=== PATIENT | male | born 1980 | race Caucasian/White ===

== ENCOUNTER 2018-07-10 06:24 | Inpatient (IN) | payer MEDICARE, MEDICAID ==
[2018-07-10] MEDS: LR 1,000 ML IV ×2 (06:45→11:15)
[2018-07-10] MEDS ORDERED: ERTAPENEM 1 GM INJ (INVanz) (J1335) As Ordered (07:17)
[2018-07-10] MEDS: ERTAPENEM SODIUM 1 GM in NS 50 ML IV (08:00)
[2018-07-10] MEDS ORDERED: BISACODYL 5 MG TAB PO (08:00)
[2018-07-10] MEDS ORDERED: NS 1,000 ML IV (08:15)
[2018-07-10] MEDS ORDERED: PROPOFOL 200 MG/20 ML VIAL As Ordered (08:20)
[2018-07-10] MEDS ORDERED: fentaNYL 100 MCG/2 ML INJECTION (J3010) As Ordered ×3 (08:20→10:58)
[2018-07-10] MEDS ORDERED: dexameTHASONE 4 MG/ML 1ML VIAL (J1100) As Ordered (08:20)
[2018-07-10] MEDS ORDERED: LIDOCAINE 2% INJ 100 MG/5 ML SDV (FOR ANES.) As Ordered (08:20)
[2018-07-10] MEDS ORDERED: MIDAZOLAM INJ 2 MG/2 ML VIAL (J2250) As Ordered (08:20)
[2018-07-10] MEDS ORDERED: ROCURONIUM BROMIDE 50 MG/5 ML VIAL As Ordered (08:20)
[2018-07-10] MEDS ORDERED: ONDANSETRON 4MG/2ML VIAL (J2405) As Ordered (08:49)
[2018-07-10] MEDS ORDERED: GLYCOPYRROLATE INJ 0.2 MG/ML 2 ML VIAL As Ordered ×2 (08:50)
[2018-07-10] MEDS ORDERED: NEOSTIGMINE 10 MG/10 ML VIAL (J2710) As Ordered (08:50)
[2018-07-10] MEDS: BACITRACIN PWD 50,000 UNITS VIAL As Ordered (08:59)
[2018-07-10] MEDS: BUPIVACAINE/EPIN 0.25% 30 ML VIAL As Ordered (09:35)
[2018-07-10] MEDS ORDERED: SUGAMMADEX SODIUM 500 MG/5 ML VIAL (BRIDION) As Ordered (10:20)
[2018-07-10] MEDS ORDERED: ONDANSETRON 4MG/2ML VIAL (J2405) IV (10:45)
[2018-07-10] MEDS ORDERED: PROMETHAZINE INJ 25 MG/ML VIAL (J2550) IV (10:45)
[2018-07-10] MEDS ORDERED: NORCO, ANEXSIA 5/325MG TABLET (HYDROcodone/ACETAMINOPHEN) PO (10:45)
[2018-07-10] MEDS ORDERED: METOCLOPRAMIDE INJ 10MG/2ML VIAL (J2765) IV (10:45)
[2018-07-10] MEDS ORDERED: PERCOCET 5MG/325MG TAB As Ordered (10:58)
[2018-07-10] MEDS: PERCOCET 5MG/325MG TAB PO ×2 (11:05→11:50)
[2018-07-10] MEDS: fentaNYL 100 MCG/2 ML INJECTION (J3010) IV ×8 (11:05→12:19)
[2018-07-10] MEDS ORDERED: MEPERIDINE INJ 25 MG/ML VIAL (J2175) IV (11:15)
[2018-07-10] MEDS: METOCLOPRAMIDE INJ 10MG/2ML VIAL (J2765) IV (11:29)
[2018-07-10] MEDS ORDERED: MULTIVITAMINS/MINERALS THERAP 1 TAB PO (11:30)
[2018-07-10] MEDS ORDERED: CALCIUM CARBONATE 500 MG CHEW U/D PO (11:30)
[2018-07-10] MEDS ORDERED: ENOXAPARIN 40 MG/0.4 ML SYRINGE (J1650) SC (11:30)
[2018-07-10] MEDS: KETOROLAC 30 MG/ML VIAL (J1885) IV ×2 (11:32→21:19)
[2018-07-10] MEDS: ONDANSETRON 4MG/2ML VIAL (J2405) IV (11:33)
[2018-07-10] MEDS: DOCUSATE SODIUM 100 MG CAP PO ×2 (15:42→20:57)
[2018-07-10] MEDS: TOLTERODINE TARTRATE 2 MG LA CAP (DETROL LA) PO (15:43)
[2018-07-10] MEDS: PANTOPRAZOLE 40MG TAB (PROTONIX) PO (15:43)
[2018-07-10] MEDS: NORCO, ANEXSIA 5/325MG TABLET (HYDROcodone/ACETAMINOPHEN) PO (15:45)
[2018-07-10] MEDS: D5W/LR 1,000 ML IV ×2 (16:22→22:25)
[2018-07-10] MEDS: DANTROLENE 25 MG CAP PO (20:57)
[2018-07-10] MEDS: buPROPion **SR TABLET** (ZYBAN) 150MG PO (20:58)
[2018-07-11] MEDS: NORCO, ANEXSIA 5/325MG TABLET (HYDROcodone/ACETAMINOPHEN) PO ×3 (01:54→18:28)
[2018-07-11] MEDS: D5W/LR 1,000 ML IV (05:44)
[2018-07-11 06:33] LABS: HEMATOCRIT 30.9 % (42.0-52.0); HEMOGLOBIN 10.5 g/dl (13.5-17.5); MEAN CORPUSCULAR HEMOGLOBIN 33.3 pg (27.0-33.0); MEAN CORPUSCULAR VOLUME 98.1 fl (80.0-96.0); PLATELET COUNT, AUTOMATED 225 10^3/uL (150-450); RED BLOOD COUNT 3.15 10^6/uL (4.30-6.10); RED CELL DISTRIBUTION WIDTH 12.6 % (11.5-14.5)
[2018-07-11 07:00] LABS: ANION GAP 6 MEQ/L (8-16); BLOOD UREA NITROGEN 3 MG/DL (7-18); CALCIUM LEVEL 7.9 MG/DL (8.5-10.1); CARBON DIOXIDE LEVEL 27 MEQ/L (21-32); CHLORIDE LEVEL 106 MEQ/L (98-107); CREATININE FOR GFR 0.28 MG/DL (0.70-1.30); GLOMERULAR FILTRATION RATE > 60.0 (>60); GLUCOSE, FASTING 135 MG/DL (70-100); SODIUM LEVEL 139 MEQ/L (136-145)
[2018-07-11] MEDS: PANTOPRAZOLE 40MG TAB (PROTONIX) PO (09:29)
[2018-07-11] MEDS: ERTAPENEM SODIUM 1 GM in NS MINI-BAG PLUS 50 ML IV (09:29)
[2018-07-11] MEDS: DOCUSATE SODIUM 100 MG CAP PO ×2 (09:29→20:47)
[2018-07-11] MEDS: POTASSIUM CHLORIDE 10 MEQ SR TABLET PO ×2 (09:30→20:47)
[2018-07-11] MEDS: buPROPion **SR TABLET** (ZYBAN) 150MG PO ×2 (09:30→20:47)
[2018-07-11] MEDS: DANTROLENE 25 MG CAP PO ×2 (09:31→20:46)
[2018-07-11] MEDS: TOLTERODINE TARTRATE 2 MG LA CAP (DETROL LA) PO (09:31)
[2018-07-11] MEDS: KETOROLAC 30 MG/ML VIAL (J1885) IV ×3 (09:46→23:38)
[2018-07-11] MEDS: BACLOFEN 10 MG TAB PO ×2 (10:57→20:46)
[2018-07-11] MEDS: AMPICILLIN SOD/SULBACTAM SOD 3 GM in D5W MINI-BAG PLUS 100 ML IV ×2 (15:09→20:47)
[2018-07-11] MEDS: ASCORBIC ACID 500 MG TAB PO (15:10)
[2018-07-11] MEDS: MULTIVITAMINS/MINERALS THERAP 1 TAB PO (15:10)
[2018-07-11] MEDS: ZINC SULFATE 220 MG CAP PO (15:10)
[2018-07-12] MEDS: NORCO, ANEXSIA 5/325MG TABLET (HYDROcodone/ACETAMINOPHEN) PO ×4 (01:46→23:22)
[2018-07-12] MEDS: AMPICILLIN SOD/SULBACTAM SOD 3 GM in D5W MINI-BAG PLUS 100 ML IV ×2 (03:55→09:51)
[2018-07-12] MEDS: KETOROLAC 30 MG/ML VIAL (J1885) IV ×3 (06:57→21:26)
[2018-07-12 07:27] LABS: HEMATOCRIT 34.2 % (42.0-52.0); HEMOGLOBIN 11.2 g/dl (13.5-17.5); MEAN CORPUSCULAR HGB CONC 32.7 g/dl (32.0-36.5); MEAN CORPUSCULAR VOLUME 100.9 fl (80.0-96.0); PLATELET COUNT, AUTOMATED 237 10^3/uL (150-450); RED BLOOD COUNT 3.39 10^6/uL (4.30-6.10); RED CELL DISTRIBUTION WIDTH 12.7 % (11.5-14.5); WHITE BLOOD COUNT 7.1 10^3/uL (4.0-10.0)
[2018-07-12 07:51] LABS: ANION GAP 5 MEQ/L (8-16); BLOOD UREA NITROGEN 5 MG/DL (7-18); CARBON DIOXIDE LEVEL 27 MEQ/L (21-32); CHLORIDE LEVEL 111 MEQ/L (98-107); CREATININE FOR GFR 0.18 MG/DL (0.70-1.30); GLOMERULAR FILTRATION RATE > 60.0 (>60); GLUCOSE, FASTING 84 MG/DL (70-100); POTASSIUM SERUM 3.6 MEQ/L (3.5-5.1); SODIUM LEVEL 143 MEQ/L (136-145)
[2018-07-12] MEDS: ASCORBIC ACID 500 MG TAB PO (09:52)
[2018-07-12] MEDS: DOCUSATE SODIUM 100 MG CAP PO ×2 (09:52→21:25)
[2018-07-12] MEDS: PANTOPRAZOLE 40MG TAB (PROTONIX) PO (09:52)
[2018-07-12] MEDS: ZINC SULFATE 220 MG CAP PO (09:52)
[2018-07-12] MEDS: DANTROLENE 25 MG CAP PO ×2 (09:52→21:25)
[2018-07-12] MEDS: BACLOFEN 10 MG TAB PO ×2 (09:52→21:24)
[2018-07-12] MEDS: TOLTERODINE TARTRATE 2 MG LA CAP (DETROL LA) PO (09:53)
[2018-07-12] MEDS: MULTIVITAMINS/MINERALS THERAP 1 TAB PO (09:53)
[2018-07-12] MEDS: buPROPion **SR TABLET** (ZYBAN) 150MG PO ×2 (09:53→21:25)
[2018-07-12] MEDS: INFLUENZA QUADRIVALENT PF VACCINE 0.5ML SYRINGE (90686) IM (09:55)
[2018-07-12] MEDS: ENOXAPARIN 40 MG/0.4 ML SYRINGE (J1650) SC (09:55)
[2018-07-12] MEDS ORDERED: VANCOMYCIN HCL 1,000 MG, VIAL MATE ADAPTER 1 EACH in D5W 250 ML IV (10:45)
[2018-07-12] MEDS: VANCOMYCIN HCL 1,000 MG, VIAL MATE ADAPTER 1 EACH in D5W 250 ML IV (12:00)
[2018-07-12] MEDS ORDERED: MEROPENEM INJ 500 MG in APPROPRIATE DILUENT 1 EA IV (12:00)
[2018-07-12] MEDS: MEROPENEM INJ 500 MG in APPROPRIATE DILUENT 1 EA IV ×2 (12:40→21:26)
[2018-07-12] MEDS: hydrOXYzine 50 MG TAB PO ×2 (17:47→23:21)
[2018-07-13] MEDS: VANCOMYCIN HCL 750 MG, VIAL MATE ADAPTER 1 EACH in D5W 250 ML IV (00:43)
[2018-07-13] MEDS: hydrOXYzine 50 MG TAB PO ×3 (05:35→17:48)
[2018-07-13] MEDS: KETOROLAC 30 MG/ML VIAL (J1885) IV (05:35)
[2018-07-13] MEDS: MEROPENEM INJ 500 MG in APPROPRIATE DILUENT 1 EA IV ×3 (05:36→20:58)
[2018-07-13 06:06] LABS: BASO % 0.4 % (0.0-1.0); EOS # 0.3 10^3/uL (0.0-0.50); EOS % 4.2 % (0.0-3.0); HEMATOCRIT 35.9 % (42.0-52.0); HEMOGLOBIN 11.7 g/dl (13.5-17.5); IMMATURE GRANULOCYTE % 0.1 % (0-3.0); LYMPH # 1.6 10^3/uL (1.5-4.5); LYMPH % 22.8 % (24.0-44.0); MEAN CORPUSCULAR HEMOGLOBIN 32.2 pg (27.0-33.0); MEAN CORPUSCULAR HGB CONC 32.6 g/dl (32.0-36.5); MEAN CORPUSCULAR VOLUME 98.9 fl (80.0-96.0); MONO # 0.6 10^3/uL (0.0-0.8); MONO % 8.2 % (0.0-5.0); NEUTROPHILS # 4.5 10^3/uL (1.8-7.7); NEUTROPHILS % 64.3 % (36.0-66.0); PLATELET COUNT, AUTOMATED 276 10^3/uL (150-450); RED BLOOD COUNT 3.63 10^6/uL (4.30-6.10); RED CELL DISTRIBUTION WIDTH 12.3 % (11.5-14.5); WHITE BLOOD COUNT 6.9 10^3/uL (4.0-10.0)
[2018-07-13 06:31] LABS: ANION GAP 7 MEQ/L (8-16); BLOOD UREA NITROGEN 11 MG/DL (7-18); CALCIUM LEVEL 8.7 MG/DL (8.5-10.1); CARBON DIOXIDE LEVEL 27 MEQ/L (21-32); CHLORIDE LEVEL 107 MEQ/L (98-107); CREATININE FOR GFR 0.29 MG/DL (0.70-1.30); GLOMERULAR FILTRATION RATE > 60.0 (>60); GLUCOSE, FASTING 99 MG/DL (70-100); POTASSIUM SERUM 3.6 MEQ/L (3.5-5.1); SODIUM LEVEL 141 MEQ/L (136-145)
[2018-07-13] MEDS: DANTROLENE 25 MG CAP PO ×2 (08:39→20:58)
[2018-07-13] MEDS: ENOXAPARIN 40 MG/0.4 ML SYRINGE (J1650) SC (08:39)
[2018-07-13] MEDS: ZINC SULFATE 220 MG CAP PO (08:39)
[2018-07-13] MEDS: BACLOFEN 10 MG TAB PO ×2 (08:39→20:58)
[2018-07-13] MEDS: DOCUSATE SODIUM 100 MG CAP PO ×2 (08:40→20:59)
[2018-07-13] MEDS: ASCORBIC ACID 500 MG TAB PO (08:40)
[2018-07-13] MEDS: buPROPion **SR TABLET** (ZYBAN) 150MG PO ×2 (08:40→20:58)
[2018-07-13] MEDS: TOLTERODINE TARTRATE 2 MG LA CAP (DETROL LA) PO (08:40)
[2018-07-13] MEDS: MULTIVITAMINS/MINERALS THERAP 1 TAB PO (08:40)
[2018-07-13] MEDS: NORCO, ANEXSIA 5/325MG TABLET (HYDROcodone/ACETAMINOPHEN) PO ×3 (08:41→20:59)
[2018-07-13] MEDS: PANTOPRAZOLE 40MG TAB (PROTONIX) PO (08:41)
[2018-07-13 11:28] LABS: VANCOMYCIN LEVEL PEAK 8.2 UG/ML (18.0-40.0)
[2018-07-13 11:33] LABS: ERYTHROCYTE SEDIMENTATION RATE 49 mm/hr (0-15)
[2018-07-13 12:42] LABS: VANCOMYCIN LEVEL TROUGH 7.9 UG/ML (10.0-20.0)
[2018-07-13 14:26] LABS: PREALBUMIN 13.9 MG/DL (20.0-40.0)
[2018-07-13] MEDS: VANCOMYCIN HCL 1,000 MG, VIAL MATE ADAPTER 1 EACH in D5W 250 ML IV (14:35)
[2018-07-13] MEDS ORDERED: PROMETHAZINE INJ 25 MG/ML VIAL (J2550) IV (15:15)
[2018-07-13] MEDS ORDERED: METOCLOPRAMIDE INJ 10MG/2ML VIAL (J2765) IV ×2 (15:30→18:00)
[2018-07-13] MEDS: OMEPRAZOLE 20 MG CAP PO (20:59)
[2018-07-14] MEDS: VANCOMYCIN HCL 1,000 MG, VIAL MATE ADAPTER 1 EACH in D5W 250 ML IV ×3 (00:31→20:51)
[2018-07-14] MEDS: KETOROLAC 30 MG/ML VIAL (J1885) IV ×2 (00:32→21:06)
[2018-07-14] MEDS: hydrOXYzine 50 MG TAB PO ×5 (00:32→23:03)
[2018-07-14] MEDS: MEROPENEM INJ 500 MG in APPROPRIATE DILUENT 1 EA IV ×3 (04:02→23:02)
[2018-07-14] MEDS: NORCO, ANEXSIA 5/325MG TABLET (HYDROcodone/ACETAMINOPHEN) PO ×4 (05:29→23:03)
[2018-07-14 07:06] LABS: BASO % 0.5 % (0.0-1.0); EOS # 0.4 10^3/uL (0.0-0.50); EOS % 5.3 % (0.0-3.0); HEMATOCRIT 37.4 % (42.0-52.0); HEMOGLOBIN 12.3 g/dl (13.5-17.5); IMMATURE GRANULOCYTE % 0.3 % (0-3.0); LYMPH # 1.4 10^3/uL (1.5-4.5); MEAN CORPUSCULAR HEMOGLOBIN 32.8 pg (27.0-33.0); MEAN CORPUSCULAR HGB CONC 32.9 g/dl (32.0-36.5); MEAN CORPUSCULAR VOLUME 99.7 fl (80.0-96.0); MONO # 0.5 10^3/uL (0.0-0.8); NEUTROPHILS % 67.9 % (36.0-66.0); PLATELET COUNT, AUTOMATED 284 10^3/uL (150-450); RED BLOOD COUNT 3.75 10^6/uL (4.30-6.10); RED CELL DISTRIBUTION WIDTH 12.2 % (11.5-14.5); WHITE BLOOD COUNT 7.4 10^3/uL (4.0-10.0)
[2018-07-14 07:32] LABS: ANION GAP 7 MEQ/L (8-16); BLOOD UREA NITROGEN 9 MG/DL (7-18); CALCIUM LEVEL 8.5 MG/DL (8.5-10.1); CARBON DIOXIDE LEVEL 26 MEQ/L (21-32); CHLORIDE LEVEL 108 MEQ/L (98-107); CREATININE FOR GFR 0.31 MG/DL (0.70-1.30); GLOMERULAR FILTRATION RATE > 60.0 (>60); GLUCOSE, FASTING 79 MG/DL (70-100); POTASSIUM SERUM 3.7 MEQ/L (3.5-5.1); SODIUM LEVEL 141 MEQ/L (136-145)
[2018-07-14] MEDS: ZINC SULFATE 220 MG CAP PO (09:07)
[2018-07-14] MEDS: DANTROLENE 25 MG CAP PO ×2 (09:07→20:53)
[2018-07-14] MEDS: DOCUSATE SODIUM 100 MG CAP PO ×2 (09:07→20:53)
[2018-07-14] MEDS: ASCORBIC ACID 500 MG TAB PO (09:07)
[2018-07-14] MEDS: OMEPRAZOLE 20 MG CAP PO ×2 (09:07→20:53)
[2018-07-14] MEDS: TOLTERODINE TARTRATE 2 MG LA CAP (DETROL LA) PO (09:07)
[2018-07-14] MEDS: ENOXAPARIN 40 MG/0.4 ML SYRINGE (J1650) SC (09:07)
[2018-07-14] MEDS: buPROPion **SR TABLET** (ZYBAN) 150MG PO ×2 (09:07→20:53)
[2018-07-14] MEDS: BACLOFEN 10 MG TAB PO ×2 (09:07→20:53)
[2018-07-14] MEDS: MULTIVITAMINS/MINERALS THERAP 1 TAB PO (09:08)
[2018-07-14 12:39] LABS: VANCOMYCIN LEVEL TROUGH 8.6 UG/ML (10.0-20.0)
[2018-07-14] MEDS: NYSTATIN 500,000 U/5 ML SUSP UDC PO ×3 (13:53→20:53)
[2018-07-15] MEDS: MEROPENEM INJ 500 MG in APPROPRIATE DILUENT 1 EA IV ×3 (04:04→21:43)
[2018-07-15] MEDS: hydrOXYzine 50 MG TAB PO ×3 (04:56→16:59)
[2018-07-15] MEDS: NORCO, ANEXSIA 5/325MG TABLET (HYDROcodone/ACETAMINOPHEN) PO ×4 (04:56→21:43)
[2018-07-15] MEDS: VANCOMYCIN HCL 1,000 MG, VIAL MATE ADAPTER 1 EACH in D5W 250 ML IV ×2 (05:37→15:29)
[2018-07-15 06:51] LABS: BASO % 0.3 % (0.0-1.0); EOS # 0.5 10^3/uL (0.0-0.50); HEMATOCRIT 36.9 % (42.0-52.0); HEMOGLOBIN 12.2 g/dl (13.5-17.5); IMMATURE GRANULOCYTE % 0.3 % (0-3.0); LYMPH # 1.5 10^3/uL (1.5-4.5); LYMPH % 17.1 % (24.0-44.0); MEAN CORPUSCULAR HEMOGLOBIN 32.6 pg (27.0-33.0); MEAN CORPUSCULAR HGB CONC 33.1 g/dl (32.0-36.5); MEAN CORPUSCULAR VOLUME 98.7 fl (80.0-96.0); MONO # 0.7 10^3/uL (0.0-0.8); MONO % 7.4 % (0.0-5.0); NEUTROPHILS % 68.9 % (36.0-66.0); PLATELET COUNT, AUTOMATED 292 10^3/uL (150-450); RED BLOOD COUNT 3.74 10^6/uL (4.30-6.10); RED CELL DISTRIBUTION WIDTH 12.2 % (11.5-14.5); WHITE BLOOD COUNT 8.8 10^3/uL (4.0-10.0)
[2018-07-15 07:10] LABS: ANION GAP 7 MEQ/L (8-16); BLOOD UREA NITROGEN 10 MG/DL (7-18); CALCIUM LEVEL 8.8 MG/DL (8.5-10.1); CARBON DIOXIDE LEVEL 26 MEQ/L (21-32); CHLORIDE LEVEL 106 MEQ/L (98-107); CREATININE FOR GFR 0.36 MG/DL (0.70-1.30); GLOMERULAR FILTRATION RATE > 60.0 (>60); GLUCOSE, FASTING 103 MG/DL (70-100); POTASSIUM SERUM 3.7 MEQ/L (3.5-5.1); SODIUM LEVEL 139 MEQ/L (136-145)
[2018-07-15] MEDS: ZINC SULFATE 220 MG CAP PO (09:27)
[2018-07-15] MEDS: MULTIVITAMINS/MINERALS THERAP 1 TAB PO (09:27)
[2018-07-15] MEDS: ENOXAPARIN 40 MG/0.4 ML SYRINGE (J1650) SC (09:27)
[2018-07-15] MEDS: KETOROLAC 30 MG/ML VIAL (J1885) IV (09:28)
[2018-07-15] MEDS: buPROPion **SR TABLET** (ZYBAN) 150MG PO ×2 (09:29→21:44)
[2018-07-15] MEDS: DOCUSATE SODIUM 100 MG CAP PO ×2 (09:29→21:42)
[2018-07-15] MEDS: ASCORBIC ACID 500 MG TAB PO (09:29)
[2018-07-15] MEDS: OMEPRAZOLE 20 MG CAP PO ×2 (09:29→21:42)
[2018-07-15] MEDS: BACLOFEN 10 MG TAB PO ×2 (09:29→21:42)
[2018-07-15] MEDS: DANTROLENE 25 MG CAP PO ×2 (09:29→21:42)
[2018-07-15] MEDS: TOLTERODINE TARTRATE 2 MG LA CAP (DETROL LA) PO (09:30)
[2018-07-15] MEDS: NYSTATIN 500,000 U/5 ML SUSP UDC PO ×4 (09:30→21:42)
[2018-07-15 12:44] LABS: VANCOMYCIN LEVEL TROUGH 22.3 UG/ML (10.0-20.0)
[2018-07-16] MEDS: hydrOXYzine 50 MG TAB PO ×4 (00:10→17:43)
[2018-07-16] MEDS: VANCOMYCIN HCL 1,000 MG, VIAL MATE ADAPTER 1 EACH in D5W 250 ML IV (02:26)
[2018-07-16] MEDS: NORCO, ANEXSIA 5/325MG TABLET (HYDROcodone/ACETAMINOPHEN) PO ×3 (02:27→20:33)
[2018-07-16] MEDS: MEROPENEM INJ 500 MG in APPROPRIATE DILUENT 1 EA IV ×3 (04:50→20:34)
[2018-07-16 06:32] LABS: BASO % 0.3 % (0.0-1.0); EOS # 0.6 10^3/uL (0.0-0.50); EOS % 6.4 % (0.0-3.0); HEMATOCRIT 38.2 % (42.0-52.0); HEMOGLOBIN 12.6 g/dl (13.5-17.5); IMMATURE GRANULOCYTE % 0.4 % (0-3.0); LYMPH # 1.6 10^3/uL (1.5-4.5); LYMPH % 16.1 % (24.0-44.0); MEAN CORPUSCULAR HEMOGLOBIN 32.6 pg (27.0-33.0); MEAN CORPUSCULAR VOLUME 98.7 fl (80.0-96.0); MONO # 0.7 10^3/uL (0.0-0.8); MONO % 6.9 % (0.0-5.0); NEUTROPHILS # 6.9 10^3/uL (1.8-7.7); NEUTROPHILS % 69.9 % (36.0-66.0); PLATELET COUNT, AUTOMATED 328 10^3/uL (150-450); RED BLOOD COUNT 3.87 10^6/uL (4.30-6.10); RED CELL DISTRIBUTION WIDTH 12.4 % (11.5-14.5); WHITE BLOOD COUNT 9.9 10^3/uL (4.0-10.0)
[2018-07-16 06:43] LABS: ANION GAP 6 MEQ/L (8-16); BLOOD UREA NITROGEN 17 MG/DL (7-18); CALCIUM LEVEL 8.7 MG/DL (8.5-10.1); CARBON DIOXIDE LEVEL 27 MEQ/L (21-32); CHLORIDE LEVEL 108 MEQ/L (98-107); CREATININE FOR GFR 0.39 MG/DL (0.70-1.30); GLOMERULAR FILTRATION RATE > 60.0 (>60); GLUCOSE, FASTING 85 MG/DL (70-100); SODIUM LEVEL 141 MEQ/L (136-145)
[2018-07-16] MEDS: ZINC SULFATE 220 MG CAP PO (09:11)
[2018-07-16] MEDS: BACLOFEN 10 MG TAB PO ×2 (09:11→20:32)
[2018-07-16] MEDS: NYSTATIN 500,000 U/5 ML SUSP UDC PO ×4 (09:11→20:32)
[2018-07-16] MEDS: OMEPRAZOLE 20 MG CAP PO ×2 (09:11→20:32)
[2018-07-16] MEDS: ASCORBIC ACID 500 MG TAB PO (09:11)
[2018-07-16] MEDS: DOCUSATE SODIUM 100 MG CAP PO ×2 (09:12→20:33)
[2018-07-16] MEDS: DANTROLENE 25 MG CAP PO ×2 (09:12→20:32)
[2018-07-16] MEDS: MULTIVITAMINS/MINERALS THERAP 1 TAB PO (09:12)
[2018-07-16] MEDS: buPROPion **SR TABLET** (ZYBAN) 150MG PO ×2 (09:12→20:34)
[2018-07-16] MEDS: ENOXAPARIN 40 MG/0.4 ML SYRINGE (J1650) SC (09:12)
[2018-07-16] MEDS: TOLTERODINE TARTRATE 2 MG LA CAP (DETROL LA) PO (09:12)
[2018-07-16] MEDS: METOCLOPRAMIDE 5 MG TAB PO ×2 (09:12→20:33)
[2018-07-16 14:37] LABS: C REACTIVE PROTEIN QUANTITATIV 3.05 MG/DL (0.00-0.30)
[2018-07-16 14:38] LABS: VANCOMYCIN LEVEL TROUGH 11.7 UG/ML (10.0-20.0)
[2018-07-16] MEDS: VANCOMYCIN HCL 750 MG, VIAL MATE ADAPTER 1 EACH in D5W 250 ML IV ×2 (15:39→22:51)
[2018-07-17] MEDS: hydrOXYzine 50 MG TAB PO ×5 (00:28→23:06)
[2018-07-17] MEDS: NORCO, ANEXSIA 5/325MG TABLET (HYDROcodone/ACETAMINOPHEN) PO ×4 (00:28→20:28)
[2018-07-17] MEDS: MEROPENEM INJ 500 MG in APPROPRIATE DILUENT 1 EA IV ×3 (04:34→20:27)
[2018-07-17] MEDS: VANCOMYCIN HCL 750 MG, VIAL MATE ADAPTER 1 EACH in D5W 250 ML IV ×3 (06:16→23:06)
[2018-07-17 08:23] LABS: BASO % 0.4 % (0.0-1.0); EOS # 0.5 10^3/uL (0.0-0.50); HEMATOCRIT 36.9 % (42.0-52.0); HEMOGLOBIN 12.7 g/dl (13.5-17.5); IMMATURE GRANULOCYTE % 0.4 % (0-3.0); LYMPH # 1.7 10^3/uL (1.5-4.5); LYMPH % 19.5 % (24.0-44.0); MEAN CORPUSCULAR HEMOGLOBIN 32.9 pg (27.0-33.0); MEAN CORPUSCULAR HGB CONC 34.4 g/dl (32.0-36.5); MEAN CORPUSCULAR VOLUME 95.6 fl (80.0-96.0); MONO # 0.9 10^3/uL (0.0-0.8); MONO % 10.1 % (0.0-5.0); NEUTROPHILS # 5.8 10^3/uL (1.8-7.7); NEUTROPHILS % 64.6 % (36.0-66.0); PLATELET COUNT, AUTOMATED 356 10^3/uL (150-450); RED BLOOD COUNT 3.86 10^6/uL (4.30-6.10); RED CELL DISTRIBUTION WIDTH 12.2 % (11.5-14.5); WHITE BLOOD COUNT 8.9 10^3/uL (4.0-10.0)
[2018-07-17 08:43] LABS: ANION GAP 7 MEQ/L (8-16); BLOOD UREA NITROGEN 14 MG/DL (7-18); CARBON DIOXIDE LEVEL 25 MEQ/L (21-32); CHLORIDE LEVEL 105 MEQ/L (98-107); CREATININE FOR GFR 0.38 MG/DL (0.70-1.30); GLOMERULAR FILTRATION RATE > 60.0 (>60); GLUCOSE, FASTING 104 MG/DL (70-100); POTASSIUM SERUM 3.7 MEQ/L (3.5-5.1); SODIUM LEVEL 137 MEQ/L (136-145)
[2018-07-17] MEDS: MULTIVITAMINS/MINERALS THERAP 1 TAB PO (10:07)
[2018-07-17] MEDS: ASCORBIC ACID 500 MG TAB PO (10:08)
[2018-07-17] MEDS: ZINC SULFATE 220 MG CAP PO (10:08)
[2018-07-17] MEDS: DANTROLENE 25 MG CAP PO ×3 (10:09→20:27)
[2018-07-17] MEDS: DOCUSATE SODIUM 100 MG CAP PO ×2 (10:09→20:27)
[2018-07-17] MEDS: OMEPRAZOLE 20 MG CAP PO ×2 (10:10→20:27)
[2018-07-17] MEDS: METOCLOPRAMIDE 5 MG TAB PO ×2 (10:10→20:27)
[2018-07-17] MEDS: TOLTERODINE TARTRATE 2 MG LA CAP (DETROL LA) PO (10:10)
[2018-07-17] MEDS: buPROPion **SR TABLET** (ZYBAN) 150MG PO ×2 (10:11→20:27)
[2018-07-17] MEDS: NYSTATIN 500,000 U/5 ML SUSP UDC PO ×4 (10:11→20:26)
[2018-07-17] MEDS: BACLOFEN 10 MG TAB PO ×2 (10:11→20:26)
[2018-07-17] MEDS: ENOXAPARIN 40 MG/0.4 ML SYRINGE (J1650) SC (10:12)
[2018-07-17] MEDS: SUCRALFATE 1 GM TAB PO ×3 (12:47→20:26)
[2018-07-17 14:41] LABS: VANCOMYCIN LEVEL TROUGH 14.9 UG/ML (10.0-20.0)
[2018-07-18] MEDS: hydrOXYzine 50 MG TAB PO ×4 (05:36→23:24)
[2018-07-18] MEDS: NORCO, ANEXSIA 5/325MG TABLET (HYDROcodone/ACETAMINOPHEN) PO ×4 (05:36→21:58)
[2018-07-18] MEDS: MEROPENEM INJ 500 MG in APPROPRIATE DILUENT 1 EA IV ×3 (05:36→21:58)
[2018-07-18 06:40] LABS: BASO % 0.6 % (0.0-1.0); EOS # 0.5 10^3/uL (0.0-0.50); HEMATOCRIT 38.3 % (42.0-52.0); HEMOGLOBIN 12.8 g/dl (13.5-17.5); IMMATURE GRANULOCYTE % 0.4 % (0-3.0); LYMPH # 1.8 10^3/uL (1.5-4.5); LYMPH % 25.7 % (24.0-44.0); MEAN CORPUSCULAR HEMOGLOBIN 32.4 pg (27.0-33.0); MEAN CORPUSCULAR HGB CONC 33.4 g/dl (32.0-36.5); MONO # 0.7 10^3/uL (0.0-0.8); MONO % 10.6 % (0.0-5.0); NEUTROPHILS # 3.9 10^3/uL (1.8-7.7); NEUTROPHILS % 55.7 % (36.0-66.0); PLATELET COUNT, AUTOMATED 353 10^3/uL (150-450); RED BLOOD COUNT 3.95 10^6/uL (4.30-6.10); RED CELL DISTRIBUTION WIDTH 12.1 % (11.5-14.5); WHITE BLOOD COUNT 6.9 10^3/uL (4.0-10.0)
[2018-07-18] MEDS: VANCOMYCIN HCL 750 MG, VIAL MATE ADAPTER 1 EACH in D5W 250 ML IV ×3 (06:52→23:24)
[2018-07-18 07:08] LABS: ANION GAP 7 MEQ/L (8-16); BLOOD UREA NITROGEN 8 MG/DL (7-18); CALCIUM LEVEL 8.4 MG/DL (8.5-10.1); CARBON DIOXIDE LEVEL 25 MEQ/L (21-32); CHLORIDE LEVEL 107 MEQ/L (98-107); CREATININE FOR GFR 0.39 MG/DL (0.70-1.30); GLOMERULAR FILTRATION RATE > 60.0 (>60); GLUCOSE, FASTING 89 MG/DL (70-100); POTASSIUM SERUM 3.7 MEQ/L (3.5-5.1); SODIUM LEVEL 139 MEQ/L (136-145)
[2018-07-18] MEDS: EUCERIN 120GM CREAM TOP (09:00)
[2018-07-18] MEDS: NYSTATIN 500,000 U/5 ML SUSP UDC PO ×4 (09:01→21:57)
[2018-07-18] MEDS: MULTIVITAMINS/MINERALS THERAP 1 TAB PO (09:02)
[2018-07-18] MEDS: BACLOFEN 10 MG TAB PO ×2 (09:02→21:57)
[2018-07-18] MEDS: ASCORBIC ACID 500 MG TAB PO (09:02)
[2018-07-18] MEDS: DOCUSATE SODIUM 100 MG CAP PO ×2 (09:02→21:57)
[2018-07-18] MEDS: OMEPRAZOLE 20 MG CAP PO ×2 (09:02→21:57)
[2018-07-18] MEDS: SUCRALFATE 1 GM TAB PO ×4 (09:02→21:57)
[2018-07-18] MEDS: METOCLOPRAMIDE 5 MG TAB PO ×2 (09:02→21:57)
[2018-07-18] MEDS: ENOXAPARIN 40 MG/0.4 ML SYRINGE (J1650) SC (09:02)
[2018-07-18] MEDS: DANTROLENE 25 MG CAP PO ×2 (09:02→21:57)
[2018-07-18] MEDS: ZINC SULFATE 220 MG CAP PO (09:02)
[2018-07-18] MEDS: buPROPion **SR TABLET** (ZYBAN) 150MG PO ×2 (09:02→21:57)
[2018-07-18] MEDS: TOLTERODINE TARTRATE 2 MG LA CAP (DETROL LA) PO (09:02)
[2018-07-19] MEDS: MEROPENEM INJ 500 MG in APPROPRIATE DILUENT 1 EA IV ×2 (05:55→12:53)
[2018-07-19] MEDS: hydrOXYzine 50 MG TAB PO ×4 (05:55→23:17)
[2018-07-19] MEDS: NORCO, ANEXSIA 5/325MG TABLET (HYDROcodone/ACETAMINOPHEN) PO (05:56)
[2018-07-19 07:11] LABS: BASO % 0.6 % (0.0-1.0); EOS # 0.5 10^3/uL (0.0-0.50); EOS % 7.4 % (0.0-3.0); HEMOGLOBIN 12.4 g/dl (13.5-17.5); IMMATURE GRANULOCYTE % 0.4 % (0-3.0); LYMPH # 1.8 10^3/uL (1.5-4.5); LYMPH % 25.7 % (24.0-44.0); MEAN CORPUSCULAR HEMOGLOBIN 32.4 pg (27.0-33.0); MEAN CORPUSCULAR HGB CONC 33.5 g/dl (32.0-36.5); MEAN CORPUSCULAR VOLUME 96.6 fl (80.0-96.0); MONO # 0.7 10^3/uL (0.0-0.8); MONO % 9.8 % (0.0-5.0); NEUTROPHILS # 3.8 10^3/uL (1.8-7.7); NEUTROPHILS % 56.1 % (36.0-66.0); PLATELET COUNT, AUTOMATED 351 10^3/uL (150-450); RED BLOOD COUNT 3.83 10^6/uL (4.30-6.10); WHITE BLOOD COUNT 6.9 10^3/uL (4.0-10.0)
[2018-07-19 07:40] LABS: ANION GAP 8 MEQ/L (8-16); BLOOD UREA NITROGEN 9 MG/DL (7-18); CALCIUM LEVEL 8.4 MG/DL (8.5-10.1); CARBON DIOXIDE LEVEL 26 MEQ/L (21-32); CHLORIDE LEVEL 107 MEQ/L (98-107); CREATININE FOR GFR 0.36 MG/DL (0.70-1.30); GLOMERULAR FILTRATION RATE > 60.0 (>60); GLUCOSE, FASTING 90 MG/DL (70-100); POTASSIUM SERUM 3.7 MEQ/L (3.5-5.1); SODIUM LEVEL 141 MEQ/L (136-145); VANCOMYCIN LEVEL TROUGH 17.1 UG/ML (10.0-20.0)
[2018-07-19] MEDS: VANCOMYCIN HCL 750 MG, VIAL MATE ADAPTER 1 EACH in D5W 250 ML IV ×3 (07:55→23:17)
[2018-07-19] MEDS: SUCRALFATE 1 GM TAB PO ×4 (08:43→21:40)
[2018-07-19] MEDS: buPROPion **SR TABLET** (ZYBAN) 150MG PO ×2 (08:44→21:42)
[2018-07-19] MEDS: ZINC SULFATE 220 MG CAP PO (08:44)
[2018-07-19] MEDS: METOCLOPRAMIDE 5 MG TAB PO (08:44)
[2018-07-19] MEDS: OMEPRAZOLE 20 MG CAP PO (08:44)
[2018-07-19] MEDS: traMADol 50 MG TAB PO ×3 (08:44→21:41)
[2018-07-19] MEDS: DANTROLENE 25 MG CAP PO ×2 (08:45→21:41)
[2018-07-19] MEDS: MULTIVITAMINS/MINERALS THERAP 1 TAB PO (08:45)
[2018-07-19] MEDS: DOCUSATE SODIUM 100 MG CAP PO ×2 (08:45→21:40)
[2018-07-19] MEDS: ASCORBIC ACID 500 MG TAB PO (08:45)
[2018-07-19] MEDS: TOLTERODINE TARTRATE 2 MG LA CAP (DETROL LA) PO (08:45)
[2018-07-19] MEDS: NYSTATIN 500,000 U/5 ML SUSP UDC PO (08:45)
[2018-07-19] MEDS: BACLOFEN 10 MG TAB PO ×2 (08:45→21:40)
[2018-07-19] MEDS: EUCERIN 120GM CREAM TOP (08:46)
[2018-07-19] MEDS: ENOXAPARIN 40 MG/0.4 ML SYRINGE (J1650) SC (08:46)
[2018-07-19 15:08] LABS: C REACTIVE PROTEIN QUANTITATIV 1.12 MG/DL (0.00-0.30)
[2018-07-19] MEDS: ACETAMINOPHEN TAB 650MG DOSE (2X325MG) PO (17:50)
[2018-07-20] MEDS: VANCOMYCIN HCL 750 MG, VIAL MATE ADAPTER 1 EACH in D5W 250 ML IV ×3 (06:46→23:39)
[2018-07-20] MEDS: hydrOXYzine 50 MG TAB PO ×4 (06:46→23:39)
[2018-07-20 07:15] LABS: BASO % 0.5 % (0.0-1.0); EOS # 0.4 10^3/uL (0.0-0.50); EOS % 5.1 % (0.0-3.0); HEMATOCRIT 37.1 % (42.0-52.0); HEMOGLOBIN 12.6 g/dl (13.5-17.5); IMMATURE GRANULOCYTE % 0.7 % (0-3.0); LYMPH # 2.1 10^3/uL (1.5-4.5); LYMPH % 25.7 % (24.0-44.0); MEAN CORPUSCULAR HEMOGLOBIN 32.6 pg (27.0-33.0); MEAN CORPUSCULAR VOLUME 95.9 fl (80.0-96.0); MONO # 0.7 10^3/uL (0.0-0.8); MONO % 7.9 % (0.0-5.0); NEUTROPHILS # 4.9 10^3/uL (1.8-7.7); NEUTROPHILS % 60.1 % (36.0-66.0); PLATELET COUNT, AUTOMATED 368 10^3/uL (150-450); RED BLOOD COUNT 3.87 10^6/uL (4.30-6.10); WHITE BLOOD COUNT 8.2 10^3/uL (4.0-10.0)
[2018-07-20 07:41] LABS: ALBUMIN/GLOBULIN RATIO 0.71 (1.00-1.93); ALKALINE PHOSPHATASE 105 U/L (45-117); ALT/SGPT 41 U/L (12-78); ANION GAP 8 MEQ/L (8-16); AST/SGOT 21 U/L (7-37); BILIRUBIN,DIRECT < 0.1 MG/DL (0.0-0.2); BILIRUBIN,TOTAL 0.3 MG/DL (0.2-1.0); BLOOD UREA NITROGEN 10 MG/DL (7-18); CALCIUM LEVEL 8.7 MG/DL (8.5-10.1); CARBON DIOXIDE LEVEL 25 MEQ/L (21-32); CHLORIDE LEVEL 107 MEQ/L (98-107); CPK CREATINE PHOSPHOKINASE 20 U/L (39-308); CREATININE FOR GFR 0.32 MG/DL (0.70-1.30); GLOMERULAR FILTRATION RATE > 60.0 (>60); GLUCOSE, FASTING 92 MG/DL (70-100); POTASSIUM SERUM 3.8 MEQ/L (3.5-5.1); SODIUM LEVEL 140 MEQ/L (136-145); TOTAL PROTEIN 7.2 GM/DL (6.4-8.2)
[2018-07-20 07:42] LABS: ERYTHROCYTE SEDIMENTATION RATE 44 mm/hr (0-15)
[2018-07-20] MEDS: SUCRALFATE 1 GM TAB PO (07:46)
[2018-07-20] MEDS: traMADol 50 MG TAB PO ×3 (07:46→21:21)
[2018-07-20] MEDS: MULTIVITAMINS/MINERALS THERAP 1 TAB PO (09:48)
[2018-07-20] MEDS: ZINC SULFATE 220 MG CAP PO (09:48)
[2018-07-20] MEDS: ASCORBIC ACID 500 MG TAB PO (09:49)
[2018-07-20] MEDS: DOCUSATE SODIUM 100 MG CAP PO ×2 (09:50→21:21)
[2018-07-20] MEDS: DANTROLENE 25 MG CAP PO ×2 (09:50→21:21)
[2018-07-20] MEDS: BACLOFEN 10 MG TAB PO ×2 (09:50→21:20)
[2018-07-20] MEDS: OMEPRAZOLE 20 MG CAP PO (09:51)
[2018-07-20] MEDS: buPROPion **SR TABLET** (ZYBAN) 150MG PO ×2 (09:51→21:20)
[2018-07-20] MEDS: ENOXAPARIN 40 MG/0.4 ML SYRINGE (J1650) SC (09:53)
[2018-07-20] MEDS: TOLTERODINE TARTRATE 2 MG LA CAP (DETROL LA) PO (09:59)
[2018-07-20] MEDS: EUCERIN 120GM CREAM TOP (09:59)
[2018-07-20] MEDS: SILVER SULFADIAZINE 1% CR 50 GM JAR TOP (15:27)
[2018-07-20] MEDS: SODIUM CHLORIDE 0.9% INJ 10 ML SYR IV (17:36)
[2018-07-20 18:22] LABS: CALCIUM OXALATE CRYSTALS RFX SMALL; KETONE, URINE AUTO RFX NEGATIVE (NEGATIVE); MUCUS, URINE RFX SMALL (NEGATIVE); NITRITE, URINE AUTO RFX NEGATIVE (NEGATIVE); RBC, URINE AUTO RFX 0 /HPF (0-3); SPECIFIC GRAVITY UR AUTO RFX 1.012 (1.002-1.035); SQUAM EPITHELIAL CELL UR AURFX 1 /HPF (0-6)
[2018-07-20 18:25] LABS: LEUKOCYTE ESTERASE UR AUTO RFX 3+ (NEGATIVE); WBC, URINE AUTO RFX 105 /HPF (0-3)
[2018-07-21] MEDS: hydrOXYzine 50 MG TAB PO ×3 (06:26→18:37)
[2018-07-21] MEDS: SODIUM CHLORIDE 0.9% INJ 10 ML SYR IV ×3 (06:26→16:47)
[2018-07-21] MEDS: traMADol 50 MG TAB PO ×3 (06:27→18:39)
[2018-07-21] MEDS: VANCOMYCIN HCL 750 MG, VIAL MATE ADAPTER 1 EACH in D5W 250 ML IV ×2 (06:27→15:22)
[2018-07-21 07:04] LABS: ANION GAP 7 MEQ/L (8-16); BLOOD UREA NITROGEN 9 MG/DL (7-18); CALCIUM LEVEL 8.8 MG/DL (8.5-10.1); CARBON DIOXIDE LEVEL 27 MEQ/L (21-32); CHLORIDE LEVEL 105 MEQ/L (98-107); CREATININE FOR GFR 0.34 MG/DL (0.70-1.30); GLOMERULAR FILTRATION RATE > 60.0 (>60); GLUCOSE, FASTING 92 MG/DL (70-100); POTASSIUM SERUM 3.9 MEQ/L (3.5-5.1); SODIUM LEVEL 139 MEQ/L (136-145)
[2018-07-21] MEDS: ENOXAPARIN 40 MG/0.4 ML SYRINGE (J1650) SC (09:09)
[2018-07-21] MEDS: ZINC SULFATE 220 MG CAP PO (09:09)
[2018-07-21] MEDS: buPROPion **SR TABLET** (ZYBAN) 150MG PO ×2 (09:09→22:14)
[2018-07-21] MEDS: TOLTERODINE TARTRATE 2 MG LA CAP (DETROL LA) PO (09:09)
[2018-07-21] MEDS: ASCORBIC ACID 500 MG TAB PO (09:09)
[2018-07-21] MEDS: MULTIVITAMINS/MINERALS THERAP 1 TAB PO (09:10)
[2018-07-21] MEDS: BACLOFEN 10 MG TAB PO ×2 (09:10→22:14)
[2018-07-21] MEDS: DANTROLENE 25 MG CAP PO ×2 (09:10→22:14)
[2018-07-21] MEDS: OMEPRAZOLE 20 MG CAP PO (09:10)
[2018-07-21] MEDS: DOCUSATE SODIUM 100 MG CAP PO ×2 (09:10→22:14)
[2018-07-21] MEDS: EUCERIN 120GM CREAM TOP (09:16)
[2018-07-21] MEDS: SILVER SULFADIAZINE 1% CR 50 GM JAR TOP ×2 (09:17→22:15)
[2018-07-21] MEDS: ONDANSETRON 4MG/2ML VIAL (J2405) IV (12:24)
[2018-07-22] MEDS: hydrOXYzine 50 MG TAB PO ×4 (00:08→18:29)
[2018-07-22] MEDS: SODIUM CHLORIDE 0.9% INJ 10 ML SYR IV ×2 (06:00→18:30)
[2018-07-22] MEDS: traMADol 50 MG TAB PO ×2 (06:37→19:58)
[2018-07-22] MEDS: EUCERIN 120GM CREAM TOP (09:00)
[2018-07-22] MEDS: MULTIVITAMINS/MINERALS THERAP 1 TAB PO (09:00)
[2018-07-22] MEDS: ZINC SULFATE 220 MG CAP PO (09:00)
[2018-07-22] MEDS: ASCORBIC ACID 500 MG TAB PO (09:00)
[2018-07-22] MEDS: OMEPRAZOLE 20 MG CAP PO (09:46)
[2018-07-22] MEDS: ENOXAPARIN 40 MG/0.4 ML SYRINGE (J1650) SC (09:47)
[2018-07-22] MEDS: ONDANSETRON 4MG/2ML VIAL (J2405) IV (11:31)
[2018-07-22] MEDS: SUCRALFATE 1 GM TAB PO ×2 (12:07→19:57)
[2018-07-22] MEDS: DANTROLENE 25 MG CAP PO ×2 (14:45→19:57)
[2018-07-22] MEDS: TOLTERODINE TARTRATE 2 MG LA CAP (DETROL LA) PO (14:45)
[2018-07-22] MEDS: buPROPion **SR TABLET** (ZYBAN) 150MG PO ×2 (14:45→19:57)
[2018-07-22] MEDS: BACLOFEN 10 MG TAB PO ×2 (14:45→19:57)
[2018-07-22] MEDS: DOCUSATE SODIUM 100 MG CAP PO ×2 (14:45→19:57)
[2018-07-22] MEDS: SILVER SULFADIAZINE 1% CR 50 GM JAR TOP ×2 (14:46→19:58)
[2018-07-23] MEDS: hydrOXYzine 50 MG TAB PO ×3 (00:29→12:57)
[2018-07-23] MEDS: traMADol 50 MG TAB PO ×2 (05:21→12:57)
[2018-07-23] MEDS: SODIUM CHLORIDE 0.9% INJ 10 ML SYR IV (05:22)
[2018-07-23] MEDS: DANTROLENE 25 MG CAP PO (08:37)
[2018-07-23] MEDS: buPROPion **SR TABLET** (ZYBAN) 150MG PO (08:37)
[2018-07-23] MEDS: MULTIVITAMINS/MINERALS THERAP 1 TAB PO (08:37)
[2018-07-23] MEDS: TOLTERODINE TARTRATE 2 MG LA CAP (DETROL LA) PO (08:37)
[2018-07-23] MEDS: ZINC SULFATE 220 MG CAP PO (08:37)
[2018-07-23] MEDS: ENOXAPARIN 40 MG/0.4 ML SYRINGE (J1650) SC (08:37)
[2018-07-23] MEDS: BACLOFEN 10 MG TAB PO (08:37)
[2018-07-23] MEDS: ASCORBIC ACID 500 MG TAB PO (08:37)
[2018-07-23] MEDS: DOCUSATE SODIUM 100 MG CAP PO (08:37)
[2018-07-23] MEDS: OMEPRAZOLE 20 MG CAP PO (08:37)
[2018-07-23] MEDS: EUCERIN 120GM CREAM TOP (08:38)
[2018-07-23] MEDS: SUCRALFATE 1 GM TAB PO (08:43)
[2018-07-23] MEDS: ONDANSETRON 4MG/2ML VIAL (J2405) IV (10:20)
[2018-07-23] MEDS: DAPTOmycin 500 MG in NS 50 ML IV (11:00)
== END 2018-07-23 13:10 | disposition home health service (06) | DRG 981 ==
LOC: M OR 06:24 → M MS5PR 12:35
PROVIDERS: Surgery
PROC: 0QB10ZZ Excision of Sacrum, Open Approach (ICD-10-PCS; principal; 2018-07-10 07:30)
PROC: 0D1N4Z4 Bypass Sigmoid Colon to Cutaneous, Percutaneous Endoscopic Approach (ICD-10-PCS; 2018-07-10 07:30)
PROC: 0DTN4ZZ Resection of Sigmoid Colon, Percutaneous Endoscopic Approach (ICD-10-PCS; 2018-07-10 07:30)
DX: L89.324 Pressure ulcer of left buttock, stage 4 (principal); G82.54 Quadriplegia, C5-C7 incomplete; E43 Unspecified severe protein-calorie malnutrition; Z68.1 Body mass index [BMI] 19.9 or less, adult; B37.0 Candidal stomatitis; R33.9 Retention of urine, unspecified; Z79.899 Other long term (current) drug therapy; Z88.5 Allergy status to narcotic agent; Z87.891 Personal history of nicotine dependence; M62.838 Other muscle spasm; F32.9 Major depressive disorder, single episode, unspecified; F41.9 Anxiety disorder, unspecified

== ENCOUNTER 2018-11-02 16:01 | Emergency (ER) | payer MEDICARE, MEDICAID ==
[~2018-11-02] VITALS: Ht 167.6 cm; Wt 54.5 kg
[~2018-11-02 16:01] MED LIST: ALBU83IN INH; BACL1TAB9 PO; BISA10SU4 PR; BUPR1TAB53 PO; CALC600T60 PO; DANT25CA PO; DANT25CA2 PO; DETR4CAP PO; DULC5TAB PO; HYDRO50TAB PO; METR-201 PO; MULTCAP PO; NEOM500T PO; OMEP20TA PO; PROB1CAP10 PO; SUCR1TA PO; TERA5CAP3 PO; TOLT4CAP3 PO; VENTAER INH; ZOFR4TAB14 SL; ZOFR4TAB16 PO
[2018-11-02] MEDS ORDERED: SUCR1TAB56 PO (16:37)
[2018-11-02 16:53] LABS: HEMATOCRIT 36.5 % (42.0-52.0); HEMOGLOBIN 12.4 g/dl (13.5-17.5); MEAN CORPUSCULAR HEMOGLOBIN 29.8 pg (27.0-33.0); MEAN CORPUSCULAR VOLUME 87.7 fl (80.0-96.0); PLATELET COUNT, AUTOMATED 276 10^3/uL (150-450); RED BLOOD COUNT 4.16 10^6/uL (4.30-6.10); WHITE BLOOD COUNT 8.1 10^3/uL (4.0-10.0)
[2018-11-02 17:11] LABS: BLOOD UREA NITROGEN 8 MG/DL (7-18); CALCIUM LEVEL 8.6 MG/DL (8.5-10.1); CARBON DIOXIDE LEVEL 23 MEQ/L (21-32); CHLORIDE LEVEL 107 MEQ/L (98-107); CREATININE FOR GFR 0.54 MG/DL (0.70-1.30); GLOMERULAR FILTRATION RATE > 60.0 (>60); GLUCOSE, FASTING 98 MG/DL (70-100); POTASSIUM SERUM 3.9 MEQ/L (3.5-5.1); SODIUM LEVEL 139 MEQ/L (136-145)
[2018-11-02 17:36] VITALS: BP 109/67
== END 2018-11-02 18:18 | disposition home or self-care (01) ==
LOC: M ED 16:01
DX: K94.09 Other complications of colostomy (principal); I10 Essential (primary) hypertension; G82.50 Quadriplegia, unspecified; G90.4 Autonomic dysreflexia; L89.154 Pressure ulcer of sacral region, stage 4; Z79.899 Other long term (current) drug therapy; Z88.5 Allergy status to narcotic agent

== ENCOUNTER 2019-10-22 06:07 | Inpatient (IN) | payer MEDICARE, MEDICAID ==
[~2019-10-22] VITALS: Ht 167.6 cm; Wt 63.5 kg
[~2019-10-22 06:07] MED LIST changes: +HYDR1TAB33 PO; -HYDRO50TAB PO; +LR 1,000 ML IV ONE; -METR-201 PO; +METR-265 PO; +OMEP-358 PO; -OMEP20TA PO; +SUCR1TAB56 PO; +ceFAZolin SOD 1 GM in D5W MINI-BAG PLUS 50 ML IV ONE
[2019-10-22] MEDS ORDERED: dexameTHASONE 4 MG/ML 1ML VIAL (J1100) As Ordered ONE (07:00)
[2019-10-22] MEDS ORDERED: ROCURONIUM BROMIDE 50 MG/5 ML VIAL As Ordered ONE (07:00)
[2019-10-22] MEDS ORDERED: propofoL 200 MG/20 ML VIAL As Ordered ONE (07:00)
[2019-10-22] MEDS ORDERED: ONDANSETRON 4MG/2ML VIAL (J2405) As Ordered ONE ×2 (07:00→10:14)
[2019-10-22] MEDS ORDERED: LIDOCAINE 2% INJ 100 MG/5 ML SDV (FOR ANES.) As Ordered ONE (07:00)
[2019-10-22] MEDS ORDERED: fentaNYL 250 MCG/5 ML INJECTION (J3010) As Ordered ONE (07:01)
[2019-10-22] MEDS ORDERED: MIDAZOLAM INJ 2 MG/2 ML VIAL (J2250) As Ordered ONE (07:01)
[2019-10-22] MEDS ORDERED: ACETAMINOPHEN 1000MG 100ML IV BTL (OFIRMEV) (J0131 PER 10MG) As Ordered ONE (08:11)
[2019-10-22] MEDS ORDERED: SUGAMMADEX SODIUM 500 MG/5 ML VIAL (BRIDION) As Ordered ONE (08:19)
[2019-10-22] MEDS ORDERED: BUPIVACAINE LIPOSOME/PF 1.3% 20ML VIAL (13.3MG/ML)(EXPAREL)(C9290 PER1MG) As Ordered ONE (08:19)
[2019-10-22] MEDS ORDERED: ePHEDrine SULFATE 25 MG/5 ML(5MG/ML) SYRINGE As Ordered ONE (08:44)
--- NOTE | 2019-10-22 09:55 | POST-OPPD ---
Postoperative Procedure Note Date Of Procedure: Oct 22, 2019 PREOPERATIVE DIAGNOSIS: Left Ischial wound Stage 4 POSTOPERATIVE DIAGNOSIS: same FINDINGS: Stage 4 ischial wound PROCEDURE: Excision of Left Ischial wound, irrigation and debridement, bone reduction Left ischium, posterior thigh fasciocutaneous flap closure of left ischial wound with application of EpiFix. SURGEON: Dr Altman ANESTHESIA: General SPECIMENS: Left ischial wound, Left ischium bone pieces ESTIMATED BLOOD LOSS: 50 cc REPLACED: none DRAINS: 10 mm TERESA drains COMPLICATIONS: none POSTOPERATIVE CONDITION: stable [id number] RADHA ALTMAN DO Oct 22, 2019 09:55
[2019-10-22] MEDS: KETOROLAC TROMETHAMINE 10 MG TAB PO PRN (10:17)
[2019-10-22] MEDS ORDERED: KETOROLAC 30 MG/ML VIAL (J1885) As Ordered ONE (10:17)
[2019-10-22] MEDS ORDERED: HYDROMORPHONE HCL 0.5 MG/ 0.5 ML SYRINGE (J1170 PER 1) As Ordered ONE ×2 (10:29→14:03)
[2019-10-22] MEDS ORDERED: PERCOCET 5MG/325MG TAB As Ordered ONE (10:29)
[2019-10-22] MEDS: PERCOCET 5MG/325MG TAB PO PRN ×4 (10:30→20:37)
[2019-10-22] MEDS: HYDROMORPHONE HCL 0.5 MG/ 0.5 ML SYRINGE (J1170 PER 1) IV PRN ×8 (10:35→15:20)
[2019-10-22] MEDS ORDERED: KETOROLAC TROMETHAMINE 10 MG TAB PO PRN (11:00)
[2019-10-22] MEDS ORDERED: LR 1,000 ML IV SCH (11:00)
[2019-10-22] MEDS ORDERED: ONDANSETRON 4MG/2ML VIAL (J2405) IV PRN (11:00)
[2019-10-22] MEDS ORDERED: fentaNYL 100 MCG/2 ML INJECTION (J3010) IV PRN (11:00)
[2019-10-22] MEDS ORDERED: LABETALOL HCL 100 MG/20 ML VIAL As Ordered ONE (12:05)
[2019-10-22] MEDS: LABETALOL HCL 100 MG/20 ML VIAL IV SCH ×3 (12:12→12:31)
[2019-10-22] MEDS ORDERED: ALBUTEROL 90 MCG/ACT 8GM HFA INHALER INH PRN (12:15)
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
[2019-10-22] MEDS ORDERED: hydrALAZINE INJ 20 MG/ML VIAL IV SCH (12:45)
[2019-10-22] MEDS ORDERED: KETOROLAC 30 MG/ML VIAL (J1885) IV PRN (13:15)
[2019-10-22 16:15] VITALS: BP 116/68
[2019-10-22] MEDS: ceFAZolin SOD 1 GM in D5W MINI-BAG PLUS 50 ML IV SCH ×2 (16:36→23:52)
[2019-10-22 17:28] VITALS: BP 139/75
[2019-10-22 18:15] VITALS: BP 144/71
[2019-10-22] MEDS: DANTROLENE 25 MG CAP PO SCH (20:34)
[2019-10-22 20:36] VITALS: BP 136/83
[2019-10-22] MEDS: TERAZOSIN 5 MG CAP PO SCH (20:36)
[2019-10-22] MEDS: SUCRALFATE 1 GM TAB PO SCH (20:37)
[2019-10-22] MEDS: buPROPion **SR TABLET** (ZYBAN) 150MG PO SCH (20:38)
[2019-10-22] MEDS: OMEPRAZOLE 20 MG CAP PO SCH (20:38)
--- NOTE | 2019-10-22 22:33 | RO ---
DATE OF PROCEDURE: 10/22/2019 PREPROCEDURE DIAGNOSIS: Left ischial wound, stage IV. POSTPROCEDURE DIAGNOSIS: Left ischial wound, stage IV. PROCEDURE: Excision of left ischial wound, irrigation and debridement, bone reduction left ischium, posterior thigh fasciocutaneous flap closure of left ischial wound with application of EpiFix. SURGEON: Tessie Khan DO ANESTHESIA: General. SPECIMENS: Left ischial wound and left ischium bone. BLOOD LOSS: 50 mL. No replacements. No complications. One 10 mm Willis-Weinstein drain. DESCRIPTION OF PROCEDURE: This is a 39-year-old male who is well known to our practice. He has a chronic left ischium wound, which he has for more than 2 years. The patient has been optimized physically, and he is ready to have this wound excised and closed with a flap. All the risks and benefits and alternatives discussed with the patient in detail, and he was ready to proceed. The day of surgery, he was marked in preoperative holding area. Again, the risks and benefits were discussed, medical clearance was checked, and he is ready to proceed. He was brought into the operating room, placed in supine position. Preoperative antibiotics were given, sequential stockings placed on the lower calves. General anesthesia was induced. Then, we turned the patient in prone position with all bony prominences protected, and he was prepped and draped in the usual sterile fashion. We identified the stage IV wound in the left ischium. Right now it is in a very good state, almost closed. It has a draining sinus that does not have any signs of infection, so we started our procedure by outlining the wound in an elliptical shape and started our incision with completely excising the wound all the way down to the ischium bone. All the scar tissue was included in this complete excision. Cultures were taken through the sinus of the wound that was tracking down to the bone, and sent to pathology. Then, we opened the periosteum longitudinally, and a prominent portion of the inferior portion of the ischium was resected using osteotome and mallet, and then inferior table of the sharp edge and the portion was completely resected creating a smoother edge at the inferior ischium. Then, the periosteum was closed, irrigation was done with Bacitracin irrigation solution. Then, the laterally based posterior thigh flap, fasciocutaneous, and it was raised using electrocautery. Hemostasis was obtained. The wound was irrigated again, and then de-epithelialized the superior portion of the flap, and then it was fitted in place to eliminate the space. The de-epithelialized dermis was tucked under the area where the wound used to be, sutured in place with #2-0 Vicryl sutures, and the #0 Vicryl, and then the rest of the flap was then sutured in place evenly without tension with interrupted #0 Vicryl sutures and #3-0 Monocryl and #3-0 nylon mattress sutures for the skin. 10 mm Willis-Weinstein drain was placed through a separate stab incision and Xeroform dressing and a sterile dressing with occlusive top dressing was applied. The patient was then turned in the supine position, extubated without any difficulties, transferred to the recovery room in stable condition. In addition, we did include 100 mg vial of EpiFix was used and diluted with 6 mL of normal saline and infiltrated into the area around the wound to add the growth factor, and also we used intramuscular and into the flap, we injected Exparel 10 mL for local anesthesia. ANTONIO
[2019-10-23 02:08] VITALS: BP 137/83
[2019-10-23] MEDS: PERCOCET 5MG/325MG TAB PO PRN ×5 (02:10→20:47)
[2019-10-23 08:30] LABS: HEMOGLOBIN 12.3 g/dl (13.5-17.5); MEAN CORPUSCULAR HEMOGLOBIN 31.3 pg (27.0-33.0); MEAN CORPUSCULAR HGB CONC 33.2 g/dl (32.0-36.5); MEAN CORPUSCULAR VOLUME 94.1 fl (80.0-96.0); PLATELET COUNT, AUTOMATED 209 10^3/uL (150-450); RED BLOOD COUNT 3.93 10^6/uL (4.30-6.10); WHITE BLOOD COUNT 6.6 10^3/uL (4.0-10.0)
[2019-10-23] MEDS: buPROPion **SR TABLET** (ZYBAN) 150MG PO SCH ×2 (08:38→20:30)
[2019-10-23] MEDS: TOLTERODINE TARTRATE 2 MG LA CAP (DETROL LA) PO SCH (08:38)
[2019-10-23] MEDS: SUCRALFATE 1 GM TAB PO SCH ×2 (08:39→23:03)
[2019-10-23] MEDS: OMEPRAZOLE 20 MG CAP PO SCH ×2 (08:39→20:27)
[2019-10-23] MEDS: ENOXAPARIN 40 MG/0.4 ML SYRINGE (J1650) SC SCH (08:39)
[2019-10-23] MEDS: DANTROLENE 25 MG CAP PO SCH ×2 (08:39→20:27)
[2019-10-23] MEDS: ceFAZolin SOD 1 GM in D5W MINI-BAG PLUS 50 ML IV SCH ×3 (08:40→23:03)
[2019-10-23] MEDS: ASCORBIC ACID 500 MG TAB PO SCH (08:42)
[2019-10-23 09:01] LABS: ALBUMIN 3.1 GM/DL (3.2-5.2); ALT/SGPT 19 U/L (12-78); BILIRUBIN,TOTAL 0.2 MG/DL (0.2-1.0); BLOOD UREA NITROGEN 6 MG/DL (7-18); CALCIUM LEVEL 8.3 MG/DL (8.5-10.1); CARBON DIOXIDE LEVEL 25 MEQ/L (21-32); CHLORIDE LEVEL 111 MEQ/L (98-107); CREATININE FOR GFR 0.45 MG/DL (0.70-1.30); GLOMERULAR FILTRATION RATE > 60.0 (>60); GLUCOSE, FASTING 106 MG/DL (70-100); POTASSIUM SERUM 3.8 MEQ/L (3.5-5.1); SODIUM LEVEL 142 MEQ/L (136-145); TOTAL PROTEIN 6.6 GM/DL (6.4-8.2)
[2019-10-23 10:00] VITALS: BP 144/88
[2019-10-23] MEDS: KETOROLAC TROMETHAMINE 10 MG TAB PO PRN ×3 (10:14→17:45)
[2019-10-23] MEDS: BACLOFEN 10 MG TAB PO SCH ×3 (10:27→20:30)
[2019-10-23 14:00] VITALS: BP 135/75
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
[2019-10-23] MEDS: traMADol 50 MG TAB PO PRN ×2 (14:25→23:03)
--- NOTE | 2019-10-23 15:17 | IPNPDOC ---
Subjective General Date/Time Seen The patient was seen on 10/23/19 at 8:00. Subject Chief Complaint/History The patient is a 39-year-old male admitted with a reason for visit of Pressure Ulcer Left Buttock. Patient s/p Left ischium wound excision, I/D, posterior thigh flap closure POD 1. Doing well. No complains. Current Medications Current Medications Current Medications Medications (Trade) Dose Ordered Sig/Claudia Route PRN Reason Start Time Stop Time Status Last Admin Dose Admin Albuterol Sulfate (Proventil, Ventolin Hfa) 2 puff RQ6H PRN INH wheezing 10/22/19 12:15 Ascorbic Acid (Vitamin C) 500 mg DAILY PO 10/23/19 09:00 10/23/19 08:42 Baclofen (Lioresal) 20 mg TID PO 10/23/19 09:00 10/23/19 10:27 Bisacodyl (Dulcolax Tab) 5 mg DAILY PRN PO CONSTIPATION 10/22/19 12:15 Bupropion HCl (Zyban, Wellbutrin Sr) 150 mg BID PO 10/22/19 21:00 10/23/19 08:38 Cefazolin Sodium 1 gm/Dextrose 50 ml @ 100 mls/hr Q8H IV 10/22/19 16:00 10/23/19 08:40 Dantrolene Sodium (Dantrium) 50 mg BID PO 10/22/19 21:00 10/23/19 08:39 Enoxaparin Sodium (Lovenox) 40 mg DAILY SC 10/23/19 09:00 10/23/19 08:39 Fentanyl Citrate (Sublimaze) 25 mcg Q5MP PRN IV PAIN LEVEL 5-10 10/22/19 11:00 10/22/19 12:00 DC Hydralazine HCl (Apresoline) 5 mg Q5M IV 10/22/19 12:45 10/22/19 16:55 DC 10/22/19 12:44 Hydromorphone HCl (Dilaudid) 0.2 mg Q5MP PRN IV PAIN LEVEL 4-7 10/22/19 11:00 10/22/19 11:24 DC 10/22/19 11:20 Hydromorphone HCl (Dilaudid) 0.2 mg Q5MP PRN IV PAIN LEVEL 4-7 10/22/19 14:30 10/22/19 15:30 DC 10/22/19 15:20 Hydroxyzine HCl (Atarax) 50 mg Q6HP PRN PO ANXIETY 10/22/19 12:15 Ketorolac Tromethamine (ToRADol) 10 mg Q6HP PRN PO MODERATE PAIN (PS 5-7) 10/22/19 11:00 10/22/19 10:50 DC Ketorolac Tromethamine (ToRADol) 10 mg Q6HP PRN PO MODERATE PAIN (PS 5-7) 10/22/19 16:00 10/27/19 15:59 10/23/19 10:14 Ketorolac Tromethamine (ToRADol) 30 mg ONCE PRN IV PAIN 10/22/19 13:15 10/22/19 13:34 DC 10/22/19 10:17 Labetalol HCl (Normodyne, Trandate) 5 mg Q5M IV 10/22/19 12:45 10/22/19 16:56 DC 10/22/19 12:31 Lactated Ringer's 1,000 ml @ 100 mls/hr Q10H IV 10/22/19 11:00 10/22/19 12:00 DC 10/22/19 09:55 Omeprazole (PriLOSEC) 20 mg BID PO 10/22/19 21:00 10/23/19 08:39 Ondansetron HCl (ZOFRAN INJection) 4 mg Q4H PRN IV NAUSEA 10/22/19 11:00 Ondansetron HCl (ZOFRAN INJection) 4 mg Q4HP PRN IV NAUSEA OR VOMITING 10/22/19 11:00 10/22/19 12:00 DC 10/22/19 10:15 Oxycodone/ Acetaminophen (Percocet 5mg/ 325mg Tablet) 1 tab ASDIRECTED PRN PO PAIN LEVEL 1-4 10/22/19 11:00 10/22/19 11:24 DC 10/22/19 11:00 Oxycodone/ Acetaminophen (Percocet 5mg/ 325mg Tablet) 1 tab Q4H PRN PO SEVERE PAIN (PS 8-10) 10/22/19 11:00 10/23/19 11:45 Sucralfate (Carafate) 1 gm BID PO 10/22/19 21:00 10/23/19 08:39 Terazosin HCl (Hytrin) 5 mg DAILY@2100 PO 10/22/19 21:00 10/22/19 20:36 Tolterodine Tartrate (Detrol La) 4 mg DAILY PO 10/23/19 09:00 10/23/19 08:38 Tramadol HCl (Ultram) 50 mg Q6HP PRN PO MODERATE PAIN (PS 5-7) 10/23/19 12:00 Allergies Coded Allergies: morphine (Verified Adverse Reaction, Intermediate, nausea/vomiting, 10/22/19) Objective Physical Examination Examination GENERAL APPEARANCE:Patient seen, laying in bed, awake, alert, and oriented. Comfortable, in no acute distress. SKIN: Warm and moist. Left buttock flap viable, well perfused, warm. Incision intact. TERESA drain serosanguinous fluid. LUNGS: Clear to auscultation bilaterally. No wheezing appreciated. HEART: No chest wall abnormalities. Regular rate and rhythm with no murmurs appreciated. ABDOMEN: Abdomen is soft. Working colostomy. EXTREMITIES: no calf tenderness. Vital Signs Vital Signs Date Time Temp Pulse Resp B/P (MAP) Pulse Ox O2 Delivery O2 Flow Rate FiO2 10/23/19 11:45 18 10/23/19 10:00 98.6 72 144/88 (106) 98 Room Air 10/22/19 15:57 2.0 I&Os I&O- Last 24 Hours up to 6 AM 10/23/19 06:00 Intake Total 3840 ml Output Total 2780 ml Balance 1060 ml Laboratory Data Labs 24H Laboratory Tests 2 10/23/19 07:56: Nucleated Red Blood Cells % (auto) 0.0, Anion Gap 6L, Glomerular Filtration Rate > 60.0, Calcium Level 8.3L, Total Bilirubin 0.2, Aspartate Amino Transf (AST/SGOT) 10, Alanine Aminotransferase (ALT/SGPT) 19, Alkaline Phosphatase 91, Total Protein 6.6, Albumin 3.1L, Albumin/Globulin Ratio 0.89L CBC/BMP Laboratory Tests 10/23/19 07:56 Microbiology Microbiology 10/22/19 Wound Culture, Received Pending 10/22/19 Anaerobic Culture, Received Pending Impression Left Ischial wound I/D/excision with posterior flap closure. Doing well. Continue with bedrest. PT Vit C, Kurtis Ensure Pain management Air flow mattress. Plan / VTE VTE Prophylaxis Ordered?: Yes RADHA ALTMAN DO Oct 23, 2019 15:17
[2019-10-23] MEDS: hydrOXYzine 50 MG TAB PO PRN (17:45)
[2019-10-23] MEDS: TERAZOSIN 5 MG CAP PO SCH (20:29)
[2019-10-23 22:00] VITALS: BP 134/84
[2019-10-24] VITALS (7 sets, daily range): BP systolic 115–147; BP diastolic 76–91
[2019-10-24] MEDS: KETOROLAC TROMETHAMINE 10 MG TAB PO PRN (01:17)
[2019-10-24] MEDS: PERCOCET 5MG/325MG TAB PO PRN ×5 (01:58→21:45)
[2019-10-24] MEDS: buPROPion **SR TABLET** (ZYBAN) 150MG PO SCH ×2 (09:56→21:44)
[2019-10-24] MEDS: TOLTERODINE TARTRATE 2 MG LA CAP (DETROL LA) PO SCH (09:56)
[2019-10-24] MEDS: ENOXAPARIN 40 MG/0.4 ML SYRINGE (J1650) SC SCH (09:56)
[2019-10-24] MEDS: SUCRALFATE 1 GM TAB PO SCH ×2 (09:56→21:44)
[2019-10-24] MEDS: DANTROLENE 25 MG CAP PO SCH ×2 (09:56→21:44)
[2019-10-24] MEDS: OMEPRAZOLE 20 MG CAP PO SCH ×2 (09:57→21:44)
[2019-10-24] MEDS: BACLOFEN 10 MG TAB PO SCH ×3 (09:57→21:44)
[2019-10-24] MEDS: ASCORBIC ACID 500 MG TAB PO SCH (09:57)
[2019-10-24] MEDS: ceFAZolin SOD 1 GM in D5W MINI-BAG PLUS 50 ML IV SCH ×3 (09:57→23:41)
--- NOTE | 2019-10-24 15:07 | IPNPDOC ---
Subjective General Date/Time Seen The patient was seen on 10/24/19 at 8:03. Subject Chief Complaint/History The patient is a 39-year-old male admitted with a reason for visit of Pressure Ulcer Left Buttock. Patient s/p left ischial wound excision and posterior thigh flap closure POD 2. Doing well. Pain controlled with meds. Current Medications Current Medications Current Medications Medications (Trade) Dose Ordered Sig/Claudia Route PRN Reason Start Time Stop Time Status Last Admin Dose Admin Albuterol Sulfate (Proventil, Ventolin Hfa) 2 puff RQ6H PRN INH wheezing 10/22/19 12:15 Ascorbic Acid (Vitamin C) 500 mg DAILY PO 10/23/19 09:00 10/24/19 09:57 Baclofen (Lioresal) 20 mg TID PO 10/23/19 09:00 10/24/19 09:57 Bisacodyl (Dulcolax Tab) 5 mg DAILY PRN PO CONSTIPATION 10/22/19 12:15 Bupropion HCl (Zyban, Wellbutrin Sr) 150 mg BID PO 10/22/19 21:00 10/24/19 09:56 Cefazolin Sodium 1 gm/Dextrose 50 ml @ 100 mls/hr Q8H IV 10/22/19 16:00 10/24/19 09:57 Dantrolene Sodium (Dantrium) 50 mg BID PO 10/22/19 21:00 10/24/19 09:56 Enoxaparin Sodium (Lovenox) 40 mg DAILY SC 10/23/19 09:00 10/24/19 09:56 Fentanyl Citrate (Sublimaze) 25 mcg Q5MP PRN IV PAIN LEVEL 5-10 10/22/19 11:00 10/22/19 12:00 DC Hydralazine HCl (Apresoline) 5 mg Q5M IV 10/22/19 12:45 10/22/19 16:55 DC 10/22/19 12:44 Hydromorphone HCl (Dilaudid) 0.2 mg Q5MP PRN IV PAIN LEVEL 4-7 10/22/19 11:00 10/22/19 11:24 DC 10/22/19 11:20 Hydromorphone HCl (Dilaudid) 0.2 mg Q5MP PRN IV PAIN LEVEL 4-7 10/22/19 14:30 10/22/19 15:30 DC 10/22/19 15:20 Hydroxyzine HCl (Atarax) 50 mg Q6HP PRN PO ANXIETY 10/22/19 12:15 10/23/19 17:45 Ketorolac Tromethamine (ToRADol) 10 mg Q6HP PRN PO MODERATE PAIN (PS 5-7) 10/22/19 11:00 10/22/19 10:50 DC Ketorolac Tromethamine (ToRADol) 10 mg Q6HP PRN PO MODERATE PAIN (PS 5-7) 10/22/19 16:00 10/27/19 15:59 10/24/19 01:17 Ketorolac Tromethamine (ToRADol) 30 mg ONCE PRN IV PAIN 10/22/19 13:15 10/22/19 13:34 DC 10/22/19 10:17 Labetalol HCl (Normodyne, Trandate) 5 mg Q5M IV 10/22/19 12:45 10/22/19 16:56 DC 10/22/19 12:31 Lactated Ringer's 1,000 ml @ 100 mls/hr Q10H IV 10/22/19 11:00 10/22/19 12:00 DC 10/22/19 09:55 Omeprazole (PriLOSEC) 20 mg BID PO 10/22/19 21:00 10/24/19 09:57 Ondansetron HCl (ZOFRAN INJection) 4 mg Q4H PRN IV NAUSEA 10/22/19 11:00 Ondansetron HCl (ZOFRAN INJection) 4 mg Q4HP PRN IV NAUSEA OR VOMITING 10/22/19 11:00 10/22/19 12:00 DC 10/22/19 10:15 Oxycodone/ Acetaminophen (Percocet 5mg/ 325mg Tablet) 1 tab ASDIRECTED PRN PO PAIN LEVEL 1-4 10/22/19 11:00 10/22/19 11:24 DC 10/22/19 11:00 Oxycodone/ Acetaminophen (Percocet 5mg/ 325mg Tablet) 1 tab Q4H PRN PO SEVERE PAIN (PS 8-10) 10/22/19 11:00 10/24/19 13:00 Sucralfate (Carafate) 1 gm BID PO 10/22/19 21:00 10/24/19 09:56 Terazosin HCl (Hytrin) 5 mg DAILY@2100 PO 10/22/19 21:00 10/23/19 20:29 Tolterodine Tartrate (Detrol La) 4 mg DAILY PO 10/23/19 09:00 10/24/19 09:56 Tramadol HCl (Ultram) 50 mg Q6HP PRN PO MODERATE PAIN (PS 5-7) 10/23/19 12:00 10/23/19 23:03 Allergies Coded Allergies: morphine (Verified Adverse Reaction, Intermediate, nausea/vomiting, 10/22/19) Objective Physical Examination Examination GENERAL APPEARANCE:Patient seen, laying in bed, awake, alert, and oriented. Comfortable, in no acute distress. SKIN: Warm and moist. Left buttock incision intact, Nylon sutures in place. Drain TERESA 10cc/24hrs serosanguinous. Flap warm, pink, viable. NECK: Supple, no thyromegaly. No obvious jugular venous distention. LUNGS: Clear to auscultation bilaterally. No wheezing appreciated. HEART: No chest wall abnormalities. Regular rate and rhythm with no murmurs appreciated. ABDOMEN: Abdomen is NT/ND, soft, colostomy in place. . EXTREMITIES: no calf tenderness. Vital Signs Vital Signs Date Time Temp Pulse Resp B/P (MAP) Pulse Ox O2 Delivery O2 Flow Rate FiO2 10/24/19 14:00 99.1 72 18 132/82 (99) 97 Room Air 10/22/19 15:57 2.0 I&Os I&O- Last 24 Hours up to 6 AM 10/24/19 06:00 Intake Total 1190 ml Output Total 2465 ml Balance -1275 ml Laboratory Data Microbiology Microbiology 10/22/19 Wound Culture - Final, Resulted Streptococcus Group G Escherichia Coli 10/22/19 Anaerobic Culture, Resulted Pending Impression S/p left ischial wound excision with posterior thigh flap closure POD 2. Doing well. Continue with bedrest PT in bed Monitor TERESA drain Flow mattress Vit C Pain management Off load the wound Healing well. Plan / VTE VTE Prophylaxis Ordered?: Yes RADHA ALTMAN DO Oct 24, 2019 15:07
[2019-10-24] MEDS: traMADol 50 MG TAB PO PRN ×2 (15:30→23:42)
[2019-10-24] MEDS: TERAZOSIN 5 MG CAP PO SCH (21:44)
[2019-10-25] MEDS: PERCOCET 5MG/325MG TAB PO PRN ×4 (04:47→18:51)
[2019-10-25 04:56] VITALS: BP 108/57
[2019-10-25] MEDS: traMADol 50 MG TAB PO PRN ×3 (07:43→20:45)
[2019-10-25] MEDS: TOLTERODINE TARTRATE 2 MG LA CAP (DETROL LA) PO SCH (08:28)
[2019-10-25] MEDS: buPROPion **SR TABLET** (ZYBAN) 150MG PO SCH ×2 (08:28→20:44)
[2019-10-25] MEDS: ceFAZolin SOD 1 GM in D5W MINI-BAG PLUS 50 ML IV SCH (08:28)
[2019-10-25] MEDS: DANTROLENE 25 MG CAP PO SCH ×2 (08:28→20:44)
[2019-10-25] MEDS: ASCORBIC ACID 500 MG TAB PO SCH (08:29)
[2019-10-25] MEDS: BACLOFEN 10 MG TAB PO SCH ×3 (08:29→20:44)
[2019-10-25] MEDS: OMEPRAZOLE 20 MG CAP PO SCH ×2 (08:29→20:44)
[2019-10-25] MEDS: SUCRALFATE 1 GM TAB PO SCH ×2 (08:29→20:44)
[2019-10-25] MEDS: ENOXAPARIN 40 MG/0.4 ML SYRINGE (J1650) SC SCH (08:29)
--- NOTE | 2019-10-25 08:40 | IPNPDOC ---
Subjective General Date/Time Seen The patient was seen on 10/25/19 at 07:45. Subject Chief Complaint/History The patient is a 39-year-old male admitted with a reason for visit of Pressure Ulcer Left Buttock. Patient s/p left ischial wound excision and posterior thigh flap closure POD 3. Doing well. Pain controlled with meds. Patient is complaint with position changes. Current Medications Current Medications Current Medications Medications (Trade) Dose Ordered Sig/Claudia Route PRN Reason Start Time Stop Time Status Last Admin Dose Admin Albuterol Sulfate (Proventil, Ventolin Hfa) 2 puff RQ6H PRN INH wheezing 10/22/19 12:15 Ascorbic Acid (Vitamin C) 500 mg DAILY PO 10/23/19 09:00 10/25/19 08:29 Baclofen (Lioresal) 20 mg TID PO 10/23/19 09:00 10/25/19 08:29 Bisacodyl (Dulcolax Tab) 5 mg DAILY PRN PO CONSTIPATION 10/22/19 12:15 Bupropion HCl (Zyban, Wellbutrin Sr) 150 mg BID PO 10/22/19 21:00 10/25/19 08:28 Cefazolin Sodium 1 gm/Dextrose 50 ml @ 100 mls/hr Q8H IV 10/22/19 16:00 10/25/19 08:28 Dantrolene Sodium (Dantrium) 50 mg BID PO 10/22/19 21:00 10/25/19 08:28 Enoxaparin Sodium (Lovenox) 40 mg DAILY SC 10/23/19 09:00 10/25/19 08:29 Fentanyl Citrate (Sublimaze) 25 mcg Q5MP PRN IV PAIN LEVEL 5-10 10/22/19 11:00 10/22/19 12:00 DC Hydralazine HCl (Apresoline) 5 mg Q5M IV 10/22/19 12:45 10/22/19 16:55 DC 10/22/19 12:44 Hydromorphone HCl (Dilaudid) 0.2 mg Q5MP PRN IV PAIN LEVEL 4-7 10/22/19 11:00 10/22/19 11:24 DC 10/22/19 11:20 Hydromorphone HCl (Dilaudid) 0.2 mg Q5MP PRN IV PAIN LEVEL 4-7 10/22/19 14:30 10/22/19 15:30 DC 10/22/19 15:20 Hydroxyzine HCl (Atarax) 50 mg Q6HP PRN PO ANXIETY 10/22/19 12:15 10/23/19 17:45 Ketorolac Tromethamine (ToRADol) 10 mg Q6HP PRN PO MODERATE PAIN (PS 5-7) 10/22/19 11:00 10/22/19 10:50 DC Ketorolac Tromethamine (ToRADol) 10 mg Q6HP PRN PO MODERATE PAIN (PS 5-7) 10/22/19 16:00 10/27/19 15:59 10/24/19 01:17 Ketorolac Tromethamine (ToRADol) 30 mg ONCE PRN IV PAIN 10/22/19 13:15 10/22/19 13:34 DC 10/22/19 10:17 Labetalol HCl (Normodyne, Trandate) 5 mg Q5M IV 10/22/19 12:45 10/22/19 16:56 DC 10/22/19 12:31 Lactated Ringer's 1,000 ml @ 100 mls/hr Q10H IV 10/22/19 11:00 10/22/19 12:00 DC 10/22/19 09:55 Omeprazole (PriLOSEC) 20 mg BID PO 10/22/19 21:00 10/25/19 08:29 Ondansetron HCl (ZOFRAN INJection) 4 mg Q4H PRN IV NAUSEA 10/22/19 11:00 Ondansetron HCl (ZOFRAN INJection) 4 mg Q4HP PRN IV NAUSEA OR VOMITING 10/22/19 11:00 10/22/19 12:00 DC 10/22/19 10:15 Oxycodone/ Acetaminophen (Percocet 5mg/ 325mg Tablet) 1 tab ASDIRECTED PRN PO PAIN LEVEL 1-4 10/22/19 11:00 10/22/19 11:24 DC 10/22/19 11:00 Oxycodone/ Acetaminophen (Percocet 5mg/ 325mg Tablet) 1 tab Q4H PRN PO SEVERE PAIN (PS 8-10) 10/22/19 11:00 10/25/19 04:47 Sucralfate (Carafate) 1 gm BID PO 10/22/19 21:00 10/25/19 08:29 Terazosin HCl (Hytrin) 5 mg DAILY@2100 PO 10/22/19 21:00 10/24/19 21:44 Tolterodine Tartrate (Detrol La) 4 mg DAILY PO 10/23/19 09:00 10/25/19 08:28 Tramadol HCl (Ultram) 50 mg Q6HP PRN PO MODERATE PAIN (PS 5-7) 10/23/19 12:00 10/25/19 07:43 Allergies Coded Allergies: morphine (Verified Adverse Reaction, Intermediate, nausea/vomiting, 10/22/19) Objective Physical Examination Examination GENERAL APPEARANCE:Patient seen, laying in bed, awake, alert, and oriented. Comfortable, in no acute distress. SKIN: Warm and moist. Left ischium incision intact, skin viable, flap viable. LUNGS: Clear to auscultation bilaterally. No wheezing appreciated. HEART: No chest wall abnormalities. Regular rate and rhythm with no murmurs appreciated. Vital Signs Vital Signs Date Time Temp Pulse Resp B/P (MAP) Pulse Ox O2 Delivery O2 Flow Rate FiO2 10/25/19 08:13 18 10/25/19 04:56 97.9 85 108/57 (74) 98 Room Air 10/22/19 15:57 2.0 I&Os I&O- Last 24 Hours up to 6 AM 10/25/19 06:00 Intake Total 1570 ml Output Total 3420 ml Balance -1850 ml Laboratory Data Microbiology Microbiology 10/22/19 Wound Culture - Final, Resulted Streptococcus Group G Escherichia Coli 10/22/19 Anaerobic Culture, Resulted Pending Impression Patient s/p left ischial wound excision and posterior thigh flap closure POD 3. Culture: E.Coli Switch antibiotics. Continue with offloading, bedrest Nutrition PT Plan / VTE VTE Prophylaxis Ordered?: Yes RADHA ALTMAN DO Oct 25, 2019 08:39
[2019-10-25 14:31] VITALS: BP 115/67
[2019-10-25] MEDS: cefTRIAXone SOD 1 GM in D5W MINI-BAG PLUS 50 ML IV SCH (16:38)
--- NOTE | 2019-10-25 18:36 | IPNPDOC ---
Text Note Date of Service The patient was seen on 10/25/19. NOTE Subjective: Patient states that he is doing better morning. No any acute events overnight Objective: VITAL SIGNS: Please see below. GENERAL APPEARANCE: Tetraplegic male with moderate distress HEENT: Normocephalic, atraumatic. Mucous members moist and pink CARDIOVASCULAR: Regular rate and rhythm. No murmurs, rubs or gallops. Radial pulses are intact. There is no lower extremity edema LUNGS: Diminished lung sounds ABDOMEN: Abdomen is soft and nontender, colostomy back in place, suprapubic catheter with no erythema around MUSCULOSKELETAL: Tetraplegic NEUROLOGICAL: Cranial nerves II-12 are grossly intact. Speech is not dysarthric 39 year old male with h/o traumatic quadriplegia stage 4 sacral decubital ulcer now reduced in size to stage 4 ischial wound, Sparkle lift use for the past year was admitted for ischial flap creation surgery for left ischial pressure ulcer by Dr Khan. Stage 4 ischial wound s/p Excision of Left Ischial wound, irrigation and debridement, bone reduction Left ischium, posterior thigh fasciocutaneous flap closure of left ischial wound with application of EpiFix. Dr Khan follows patient Wound culture positive for Escherichia coli and Streptococcus group G sensitive to ceftriaxone. Cefazolin was switched to ceftriaxone PT/OT Pain management Muscle spasms due to history of C5 injury: Continue home meds Osteoporosis 2/2 [id number]: Continue home meds MDD and Anxiety Continue home meds Chronic urinary retention Patient has suprapubic catheter GERD PPI, sucralfate VS,Fishbone, I+O VS, Fishbone, I+O Vital Signs Date Time Temp Pulse Resp B/P (MAP) Pulse Ox O2 Delivery O2 Flow Rate FiO2 10/25/19 15:58 18 10/25/19 14:31 97.9 68 115/67 (83) 98 10/25/19 04:56 Room Air 10/22/19 15:57 2.0 I&O- Last 24 Hours up to 6 AM 10/25/19 06:00 Intake Total 1570 ml Output Total 3420 ml Balance -1850 ml EYAD FRANK DO Oct 25, 2019 18:36
[2019-10-25] MEDS: TERAZOSIN 5 MG CAP PO SCH (20:44)
[2019-10-25 22:00] VITALS: BP 126/76
[2019-10-26] MEDS: PERCOCET 5MG/325MG TAB PO PRN ×3 (00:21→15:09)
[2019-10-26] MEDS: cefTRIAXone SOD 1 GM in D5W MINI-BAG PLUS 50 ML IV SCH ×2 (04:49→15:09)
[2019-10-26] MEDS: traMADol 50 MG TAB PO PRN ×3 (04:50→18:32)
[2019-10-26 06:00] VITALS: BP 124/76
[2019-10-26 08:13] LABS: HEMATOCRIT 39.4 % (42.0-52.0); HEMOGLOBIN 13.1 g/dl (13.5-17.5); MEAN CORPUSCULAR HEMOGLOBIN 31.4 pg (27.0-33.0); MEAN CORPUSCULAR HGB CONC 33.2 g/dl (32.0-36.5); MEAN CORPUSCULAR VOLUME 94.5 fl (80.0-96.0); PLATELET COUNT, AUTOMATED 201 10^3/uL (150-450); RED BLOOD COUNT 4.17 10^6/uL (4.30-6.10)
[2019-10-26 08:23] LABS: BLOOD UREA NITROGEN 14 MG/DL (7-18); CALCIUM LEVEL 8.8 MG/DL (8.5-10.1); CARBON DIOXIDE LEVEL 27 MEQ/L (21-32); CHLORIDE LEVEL 104 MEQ/L (98-107); CREATININE FOR GFR 0.49 MG/DL (0.70-1.30); GLOMERULAR FILTRATION RATE > 60.0 (>60); GLUCOSE, FASTING 88 MG/DL (70-100); MAGNESIUM LEVEL 2.1 MG/DL (1.8-2.4); SODIUM LEVEL 138 MEQ/L (136-145)
[2019-10-26] MEDS: TOLTERODINE TARTRATE 2 MG LA CAP (DETROL LA) PO SCH (08:47)
[2019-10-26] MEDS: ASCORBIC ACID 500 MG TAB PO SCH (08:48)
[2019-10-26] MEDS: buPROPion **SR TABLET** (ZYBAN) 150MG PO SCH ×2 (08:48→21:10)
[2019-10-26] MEDS: DANTROLENE 25 MG CAP PO SCH ×2 (08:48→21:10)
[2019-10-26] MEDS: ENOXAPARIN 40 MG/0.4 ML SYRINGE (J1650) SC SCH (08:48)
[2019-10-26] MEDS: BACLOFEN 10 MG TAB PO SCH ×3 (08:48→21:10)
[2019-10-26] MEDS: SUCRALFATE 1 GM TAB PO SCH ×2 (08:48→21:10)
[2019-10-26] MEDS: OMEPRAZOLE 20 MG CAP PO SCH ×2 (08:48→21:11)
--- NOTE | 2019-10-26 11:18 | IPNPDOC ---
Subjective General Date Seen: Oct 26, 2019 Subject Chief Complaint/History The patient is a 39-year-old male admitted with a reason for visit of Pressure Ulcer Left Buttock. Patient s/p Left ischium wound excision, I/D, posterior thigh flap closure POD 4. Doing well. Pain controlled. Complaint with off loading. Current Medications Current Medications Current Medications Medications (Trade) Dose Ordered Sig/Claudia Route PRN Reason Start Time Stop Time Status Last Admin Dose Admin Albuterol Sulfate (Proventil, Ventolin Hfa) 2 puff RQ6H PRN INH wheezing 10/22/19 12:15 Ascorbic Acid (Vitamin C) 500 mg DAILY PO 10/23/19 09:00 10/26/19 08:48 Baclofen (Lioresal) 20 mg TID PO 10/23/19 09:00 10/26/19 08:48 Bisacodyl (Dulcolax Tab) 5 mg DAILY PRN PO CONSTIPATION 10/22/19 12:15 Bupropion HCl (Zyban, Wellbutrin Sr) 150 mg BID PO 10/22/19 21:00 10/26/19 08:48 Cefazolin Sodium 1 gm/Dextrose 50 ml @ 100 mls/hr Q8H IV 10/22/19 16:00 10/25/19 14:30 DC 10/25/19 08:28 Ceftriaxone Sodium 1 gm/ Dextrose 50 ml @ 100 mls/hr Q12H IV 10/25/19 16:00 10/26/19 04:49 Dantrolene Sodium (Dantrium) 50 mg BID PO 10/22/19 21:00 10/26/19 08:48 Enoxaparin Sodium (Lovenox) 40 mg DAILY SC 10/23/19 09:00 10/26/19 08:48 Fentanyl Citrate (Sublimaze) 25 mcg Q5MP PRN IV PAIN LEVEL 5-10 10/22/19 11:00 10/22/19 12:00 DC Hydralazine HCl (Apresoline) 5 mg Q5M IV 10/22/19 12:45 10/22/19 16:55 DC 10/22/19 12:44 Hydromorphone HCl (Dilaudid) 0.2 mg Q5MP PRN IV PAIN LEVEL 4-7 10/22/19 11:00 10/22/19 11:24 DC 10/22/19 11:20 Hydromorphone HCl (Dilaudid) 0.2 mg Q5MP PRN IV PAIN LEVEL 4-7 10/22/19 14:30 10/22/19 15:30 DC 10/22/19 15:20 Hydroxyzine HCl (Atarax) 50 mg Q6HP PRN PO ANXIETY 10/22/19 12:15 10/23/19 17:45 Ketorolac Tromethamine (ToRADol) 10 mg Q6HP PRN PO MODERATE PAIN (PS 5-7) 10/22/19 11:00 10/22/19 10:50 DC Ketorolac Tromethamine (ToRADol) 10 mg Q6HP PRN PO MODERATE PAIN (PS 5-7) 10/22/19 16:00 10/27/19 15:59 10/24/19 01:17 Ketorolac Tromethamine (ToRADol) 30 mg ONCE PRN IV PAIN 10/22/19 13:15 10/22/19 13:34 DC 10/22/19 10:17 Labetalol HCl (Normodyne, Trandate) 5 mg Q5M IV 10/22/19 12:45 10/22/19 16:56 DC 10/22/19 12:31 Lactated Ringer's 1,000 ml @ 100 mls/hr Q10H IV 10/22/19 11:00 10/22/19 12:00 DC 10/22/19 09:55 Omeprazole (PriLOSEC) 20 mg BID PO 10/22/19 21:00 10/26/19 08:48 Ondansetron HCl (ZOFRAN INJection) 4 mg Q4H PRN IV NAUSEA 10/22/19 11:00 Ondansetron HCl (ZOFRAN INJection) 4 mg Q4HP PRN IV NAUSEA OR VOMITING 10/22/19 11:00 10/22/19 12:00 DC 10/22/19 10:15 Oxycodone/ Acetaminophen (Percocet 5mg/ 325mg Tablet) 1 tab ASDIRECTED PRN PO PAIN LEVEL 1-4 10/22/19 11:00 10/22/19 11:24 DC 10/22/19 11:00 Oxycodone/ Acetaminophen (Percocet 5mg/ 325mg Tablet) 1 tab Q4H PRN PO SEVERE PAIN (PS 8-10) 10/22/19 11:00 10/26/19 08:48 Sucralfate (Carafate) 1 gm BID PO 10/22/19 21:00 10/26/19 08:48 Terazosin HCl (Hytrin) 5 mg DAILY@2100 PO 10/22/19 21:00 10/25/19 20:44 Tolterodine Tartrate (Detrol La) 4 mg DAILY PO 10/23/19 09:00 10/26/19 08:47 Tramadol HCl (Ultram) 50 mg Q6HP PRN PO MODERATE PAIN (PS 5-7) 10/23/19 12:00 10/26/19 04:50 Allergies Coded Allergies: morphine (Verified Adverse Reaction, Intermediate, nausea/vomiting, ) Objective Physical Examination Examination GENERAL APPEARANCE:Patient seen, laying in bed, awake, alert, and oriented. Comfortable, in no acute distress. SKIN: Warm and moist. Incision intact. Skin viable, no redness. TERESA serosanguinous drainage 10 cc/24 hrs LUNGS: Clear to auscultation bilaterally. No wheezing appreciated. HEART: No chest wall abnormalities. Regular rate and rhythm with no murmurs appreciated. ABDOMEN: Abdomen is NT/ND, soft, colostomy functional. Vital Signs Vital Signs Date Time Temp Pulse Resp B/P (MAP) Pulse Ox O2 Delivery O2 Flow Rate FiO2 10/26/19 09:18 18 10/26/19 06:00 98.0 74 124/76 (92) 99 Room Air 10/22/19 15:57 2.0 I&Os I&O- Last 24 Hours up to 6 AM 10/26/19 05:59 Intake Total 1710 ml Output Total 2660 ml Balance -950 ml Laboratory Data Labs 24H Laboratory Tests 2 10/26/19 07:33: Nucleated Red Blood Cells % (auto) 0.0, Anion Gap 7L, Glomerular Filtration Rate > 60.0, Calcium Level 8.8, Magnesium Level 2.1 CBC/BMP Laboratory Tests 10/26/19 07:33 Microbiology Microbiology 10/22/19 Wound Culture - Final, Resulted Streptococcus Group G Escherichia Coli 10/22/19 Anaerobic Culture, Resulted Pending Impression S/p I/D left ischium wound, posterior thigh flap POD 4. Healing well. Continue with offloading, bedrest Antibiotics TERESA monitoring. Plan / VTE VTE Prophylaxis Ordered?: Yes RADHA ALTMAN DO Oct 26, 2019 11:18
--- NOTE | 2019-10-26 11:45 | IPNPDOC ---
Text Note Date of Service The patient was seen on 10/26/19. NOTE Subjective: Patient denies fever, chills, nausea, vomiting. No any acute events overnight Objective: VITAL SIGNS: Please see below. GENERAL APPEARANCE: Tetraplegic male with moderate distress HEENT: Normocephalic, atraumatic. Mucous members moist and pink CARDIOVASCULAR: Regular rate and rhythm. No murmurs, rubs or gallops. Radial pulses are intact. There is no lower extremity edema LUNGS: Diminished lung sounds ABDOMEN: Abdomen is soft and nontender, colostomy back in place, suprapubic catheter with no erythema around MUSCULOSKELETAL: Tetraplegic NEUROLOGICAL: Cranial nerves II-12 are grossly intact. Speech is not dysarthric 39 year old male with h/o traumatic quadriplegia stage 4 sacral decubital ulcer now reduced in size to stage 4 ischial wound, Sparkle lift use for the past year was admitted for ischial flap creation surgery for left ischial pressure ulcer by Dr Khan. Wound culture positive for Escherichia coli and Streptococcus group G sensitive to ceftriaxone. Cefazolin was switched to ceftriaxone on 10/25/19 Stage 4 ischial wound s/p Excision of Left Ischial wound, irrigation and debridement, bone reduction Left ischium, posterior thigh fasciocutaneous flap closure of left ischial wound with application of EpiFix. Dr Khan follows patient Wound culture positive for Escherichia coli and Streptococcus group G sensitive to ceftriaxone. Cefazolin was switched to ceftriaxone on 10/25/19 PT/OT Pain management Muscle spasms due to history of C5 injury: Continue home meds Osteoporosis 2/2 [id number]: Continue home meds MDD and Anxiety Continue home meds Chronic urinary retention Patient has suprapubic catheter GERD PPI, sucralfate VS,Fishbone, I+O VS, Fishbone, I+O Laboratory Tests 10/26/19 07:33 Vital Signs Date Time Temp Pulse Resp B/P (MAP) Pulse Ox O2 Delivery O2 Flow Rate FiO2 10/26/19 09:18 18 10/26/19 06:00 98.0 74 124/76 (92) 99 Room Air 10/22/19 15:57 2.0 I&O- Last 24 Hours up to 6 AM 10/26/19 06:00 Intake Total 2310 ml Output Total 3110 ml Balance -800 ml DROSHELLYNEYAD DO Oct 26, 2019 11:45
[2019-10-26 13:37] VITALS: BP 144/86
[2019-10-26] MEDS: TERAZOSIN 5 MG CAP PO SCH (21:11)
[2019-10-26 22:00] VITALS: BP 110/70
[2019-10-27] MEDS: traMADol 50 MG TAB PO PRN ×2 (00:32→08:46)
[2019-10-27] MEDS: cefTRIAXone SOD 1 GM in D5W MINI-BAG PLUS 50 ML IV SCH ×2 (03:36→16:32)
[2019-10-27] MEDS: PERCOCET 5MG/325MG TAB PO PRN ×4 (03:58→20:47)
[2019-10-27 06:00] VITALS: BP 112/73
[2019-10-27] MEDS: OMEPRAZOLE 20 MG CAP PO SCH ×2 (08:45→20:46)
[2019-10-27] MEDS: TOLTERODINE TARTRATE 2 MG LA CAP (DETROL LA) PO SCH (08:45)
[2019-10-27] MEDS: SUCRALFATE 1 GM TAB PO SCH ×2 (08:45→20:45)
[2019-10-27] MEDS: BACLOFEN 10 MG TAB PO SCH ×3 (08:45→20:46)
[2019-10-27] MEDS: buPROPion **SR TABLET** (ZYBAN) 150MG PO SCH ×2 (08:45→20:46)
[2019-10-27] MEDS: ASCORBIC ACID 500 MG TAB PO SCH (08:45)
[2019-10-27] MEDS: DANTROLENE 25 MG CAP PO SCH ×2 (08:45→20:46)
[2019-10-27] MEDS: ENOXAPARIN 40 MG/0.4 ML SYRINGE (J1650) SC SCH (08:46)
--- NOTE | 2019-10-27 11:21 | IPNPDOC ---
Subjective General Date Seen: Oct 27, 2019 Subject Chief Complaint/History The patient is a 39-year-old male admitted with a reason for visit of Pressure Ulcer Left Buttock. S/p Left ischial wound I/D and flap closure POD 5. Doing well. No complains. Current Medications Current Medications Current Medications Medications (Trade) Dose Ordered Sig/Claudia Route PRN Reason Start Time Stop Time Status Last Admin Dose Admin Albuterol Sulfate (Proventil, Ventolin Hfa) 2 puff RQ6H PRN INH wheezing 10/22/19 12:15 Ascorbic Acid (Vitamin C) 500 mg DAILY PO 10/23/19 09:00 10/27/19 08:45 Baclofen (Lioresal) 20 mg TID PO 10/23/19 09:00 10/27/19 08:45 Bisacodyl (Dulcolax Tab) 5 mg DAILY PRN PO CONSTIPATION 10/22/19 12:15 Bupropion HCl (Zyban, Wellbutrin Sr) 150 mg BID PO 10/22/19 21:00 10/27/19 08:45 Cefazolin Sodium 1 gm/Dextrose 50 ml @ 100 mls/hr Q8H IV 10/22/19 16:00 10/25/19 14:30 DC 10/25/19 08:28 Ceftriaxone Sodium 1 gm/ Dextrose 50 ml @ 100 mls/hr Q12H IV 10/25/19 16:00 10/27/19 03:36 Dantrolene Sodium (Dantrium) 50 mg BID PO 10/22/19 21:00 10/27/19 08:45 Enoxaparin Sodium (Lovenox) 40 mg DAILY SC 10/23/19 09:00 10/27/19 08:46 Fentanyl Citrate (Sublimaze) 25 mcg Q5MP PRN IV PAIN LEVEL 5-10 10/22/19 11:00 10/22/19 12:00 DC Hydralazine HCl (Apresoline) 5 mg Q5M IV 10/22/19 12:45 10/22/19 16:55 DC 10/22/19 12:44 Hydromorphone HCl (Dilaudid) 0.2 mg Q5MP PRN IV PAIN LEVEL 4-7 10/22/19 11:00 10/22/19 11:24 DC 10/22/19 11:20 Hydromorphone HCl (Dilaudid) 0.2 mg Q5MP PRN IV PAIN LEVEL 4-7 10/22/19 14:30 10/22/19 15:30 DC 10/22/19 15:20 Hydroxyzine HCl (Atarax) 50 mg Q6HP PRN PO ANXIETY 10/22/19 12:15 10/23/19 17:45 Ketorolac Tromethamine (ToRADol) 10 mg Q6HP PRN PO MODERATE PAIN (PS 5-7) 10/22/19 11:00 10/22/19 10:50 DC Ketorolac Tromethamine (ToRADol) 10 mg Q6HP PRN PO MODERATE PAIN (PS 5-7) 10/22/19 16:00 10/27/19 15:59 10/24/19 01:17 Ketorolac Tromethamine (ToRADol) 30 mg ONCE PRN IV PAIN 10/22/19 13:15 10/22/19 13:34 DC 10/22/19 10:17 Labetalol HCl (Normodyne, Trandate) 5 mg Q5M IV 10/22/19 12:45 10/22/19 16:56 DC 10/22/19 12:31 Lactated Ringer's 1,000 ml @ 100 mls/hr Q10H IV 10/22/19 11:00 10/22/19 12:00 DC 10/22/19 09:55 Omeprazole (PriLOSEC) 20 mg BID PO 10/22/19 21:00 10/27/19 08:45 Ondansetron HCl (ZOFRAN INJection) 4 mg Q4H PRN IV NAUSEA 10/22/19 11:00 Ondansetron HCl (ZOFRAN INJection) 4 mg Q4HP PRN IV NAUSEA OR VOMITING 10/22/19 11:00 10/22/19 12:00 DC 10/22/19 10:15 Oxycodone/ Acetaminophen (Percocet 5mg/ 325mg Tablet) 1 tab ASDIRECTED PRN PO PAIN LEVEL 1-4 10/22/19 11:00 10/22/19 11:24 DC 10/22/19 11:00 Oxycodone/ Acetaminophen (Percocet 5mg/ 325mg Tablet) 1 tab Q4H PRN PO SEVERE PAIN (PS 8-10) 10/22/19 11:00 10/27/19 03:58 Sucralfate (Carafate) 1 gm BID PO 10/22/19 21:00 10/27/19 08:45 Terazosin HCl (Hytrin) 5 mg DAILY@2100 PO 10/22/19 21:00 10/26/19 21:11 Tolterodine Tartrate (Detrol La) 4 mg DAILY PO 10/23/19 09:00 10/27/19 08:45 Tramadol HCl (Ultram) 50 mg Q6HP PRN PO MODERATE PAIN (PS 5-7) 10/23/19 12:00 10/27/19 08:46 Allergies Coded Allergies: morphine (Verified Adverse Reaction, Intermediate, nausea/vomiting, 10/22/19) Objective Physical Examination Examination GENERAL APPEARANCE:Patient seen, laying in bed, awake, alert, and oriented. Comfortable, in no acute distress. SKIN: Warm and moist. Left posterior thigh/buttock incision intact, healing well. Nylon sutures in place. TERESA serosanguinous, 15cc/24 HEART: No chest wall abnormalities. Regular rate and rhythm with no murmurs appreciated. ABDOMEN: Abdomen is NT/ND, soft, colostomy functioning. Vital Signs Vital Signs Date Time Temp Pulse Resp B/P (MAP) Pulse Ox O2 Delivery O2 Flow Rate FiO2 10/27/19 09:16 18 10/27/19 06:00 98.2 78 112/73 (86) 99 Room Air 10/22/19 15:57 2.0 I&Os I&O- Last 24 Hours up to 6 AM 10/27/19 06:00 Intake Total 1970 ml Output Total 3125 ml Balance -1155 ml Laboratory Data Microbiology Microbiology 10/22/19 Wound Culture - Final, Complete Streptococcus Group G Escherichia Coli 10/22/19 Anaerobic Culture - Final, Complete Prevotella Melaninogenica Impression S/p ischial wound I/D, posterior thigh flap closure POD 5. Healing well. Continue with bedrest, in bed PT Nutrition Pain management Plan / VTE VTE Prophylaxis Ordered?: Yes RADHA ALTMAN DO Oct 27, 2019 11:21
[2019-10-27 12:49] VITALS: BP 116/69
[2019-10-27] MEDS: TERAZOSIN 5 MG CAP PO SCH (20:46)
[2019-10-27 22:00] VITALS: BP 109/69
[2019-10-28] MEDS: hydrOXYzine 50 MG TAB PO PRN ×2 (00:16→22:32)
[2019-10-28] MEDS: PERCOCET 5MG/325MG TAB PO PRN ×4 (00:17→20:06)
[2019-10-28] MEDS: cefTRIAXone SOD 1 GM in D5W MINI-BAG PLUS 50 ML IV SCH ×2 (03:20→15:22)
[2019-10-28] MEDS: traMADol 50 MG TAB PO PRN ×3 (03:26→22:32)
[2019-10-28 06:00] VITALS: BP 133/90
[2019-10-28] MEDS: buPROPion **SR TABLET** (ZYBAN) 150MG PO SCH ×2 (08:59→20:05)
[2019-10-28] MEDS: ASCORBIC ACID 500 MG TAB PO SCH (08:59)
[2019-10-28] MEDS: SUCRALFATE 1 GM TAB PO SCH ×2 (08:59→20:05)
[2019-10-28] MEDS: TOLTERODINE TARTRATE 2 MG LA CAP (DETROL LA) PO SCH (08:59)
[2019-10-28] MEDS: DANTROLENE 25 MG CAP PO SCH ×2 (08:59→20:05)
[2019-10-28] MEDS ORDERED: LIDOCAINE 5% (LIDODERM) PATCH TD PRN (09:00)
[2019-10-28] MEDS: OMEPRAZOLE 20 MG CAP PO SCH ×2 (09:00→20:06)
[2019-10-28] MEDS: BACLOFEN 10 MG TAB PO SCH ×3 (09:00→20:06)
[2019-10-28] MEDS: ENOXAPARIN 40 MG/0.4 ML SYRINGE (J1650) SC SCH (09:01)
[2019-10-28] MEDS: LIDOCAINE 5% (LIDODERM) PATCH TD PRN (12:31)
[2019-10-28 14:00] VITALS: BP 124/84
[2019-10-28] MEDS: metroNIDAZOLE (FLAGYL) 500 MG TAB PO SCH ×2 (15:22→22:32)
--- NOTE | 2019-10-28 15:44 | IPNPDOC ---
Subjective General Date Seen: Oct 28, 2019 Subject Chief Complaint/History The patient is a 39-year-old male admitted with a reason for visit of Pressure Ulcer Left Buttock. S/p Left ischial wound excision, left posterior thigh flap POD 6. Doing well. Current Medications Current Medications Current Medications Medications (Trade) Dose Ordered Sig/Claudia Route PRN Reason Start Time Stop Time Status Last Admin Dose Admin Albuterol Sulfate (Proventil, Ventolin Hfa) 2 puff RQ6H PRN INH wheezing 10/22/19 12:15 Ascorbic Acid (Vitamin C) 500 mg DAILY PO 10/23/19 09:00 10/28/19 08:59 Baclofen (Lioresal) 20 mg TID PO 10/23/19 09:00 10/28/19 15:22 Bisacodyl (Dulcolax Tab) 5 mg DAILY PRN PO CONSTIPATION 10/22/19 12:15 Bupropion HCl (Zyban, Wellbutrin Sr) 150 mg BID PO 10/22/19 21:00 10/28/19 08:59 Cefazolin Sodium 1 gm/Dextrose 50 ml @ 100 mls/hr Q8H IV 10/22/19 16:00 10/25/19 14:30 DC 10/25/19 08:28 Ceftriaxone Sodium 1 gm/ Dextrose 50 ml @ 100 mls/hr Q12H IV 10/25/19 16:00 10/28/19 15:22 Dantrolene Sodium (Dantrium) 50 mg BID PO 10/22/19 21:00 10/28/19 08:59 Enoxaparin Sodium (Lovenox) 40 mg DAILY SC 10/23/19 09:00 10/28/19 09:01 Fentanyl Citrate (Sublimaze) 25 mcg Q5MP PRN IV PAIN LEVEL 5-10 10/22/19 11:00 10/22/19 12:00 DC Hydralazine HCl (Apresoline) 5 mg Q5M IV 10/22/19 12:45 10/22/19 16:55 DC 10/22/19 12:44 Hydromorphone HCl (Dilaudid) 0.2 mg Q5MP PRN IV PAIN LEVEL 4-7 10/22/19 11:00 10/22/19 11:24 DC 10/22/19 11:20 Hydromorphone HCl (Dilaudid) 0.2 mg Q5MP PRN IV PAIN LEVEL 4-7 10/22/19 14:30 10/22/19 15:30 DC 10/22/19 15:20 Hydroxyzine HCl (Atarax) 50 mg Q6HP PRN PO ANXIETY 10/22/19 12:15 10/28/19 00:16 Ketorolac Tromethamine (ToRADol) 10 mg Q6HP PRN PO MODERATE PAIN (PS 5-7) 10/22/19 11:00 10/22/19 10:50 DC Ketorolac Tromethamine (ToRADol) 10 mg Q6HP PRN PO MODERATE PAIN (PS 5-7) 10/22/19 16:00 10/27/19 15:59 DC 10/24/19 01:17 Ketorolac Tromethamine (ToRADol) 30 mg ONCE PRN IV PAIN 10/22/19 13:15 10/22/19 13:34 DC 10/22/19 10:17 Labetalol HCl (Normodyne, Trandate) 5 mg Q5M IV 10/22/19 12:45 10/22/19 16:56 DC 10/22/19 12:31 Lactated Ringer's 1,000 ml @ 100 mls/hr Q10H IV 10/22/19 11:00 10/22/19 12:00 DC 10/22/19 09:55 Lidocaine (Lidoderm Patch) 1 patch DAILY PRN TD MILD/MODERATE PAIN (PS 1-7) 10/28/19 09:00 Lidocaine (Lidoderm Patch) 2 patch DAILY PRN TD MODERATE/SEVERE PAIN (PS 5-10) 10/28/19 09:00 10/28/19 12:31 Metronidazole (Flagyl) 500 mg Q8H PO 10/28/19 14:00 11/06/19 13:59 10/28/19 15:22 Non-Formulary Medication ( See Comment Field Below ) REMOVE LIDODERM PATCH DAILY@21 XX 10/28/19 21:00 Omeprazole (PriLOSEC) 20 mg BID PO 10/22/19 21:00 10/28/19 09:00 Ondansetron HCl (ZOFRAN INJection) 4 mg Q4H PRN IV NAUSEA 10/22/19 11:00 Ondansetron HCl (ZOFRAN INJection) 4 mg Q4HP PRN IV NAUSEA OR VOMITING 10/22/19 11:00 10/22/19 12:00 DC 10/22/19 10:15 Oxycodone/ Acetaminophen (Percocet 5mg/ 325mg Tablet) 1 tab ASDIRECTED PRN PO PAIN LEVEL 1-4 10/22/19 11:00 10/22/19 11:24 DC 10/22/19 11:00 Oxycodone/ Acetaminophen (Percocet 5mg/ 325mg Tablet) 1 tab Q4H PRN PO SEVERE PAIN (PS 8-10) 10/22/19 11:00 10/28/19 15:22 Sucralfate (Carafate) 1 gm BID PO 10/22/19 21:00 10/28/19 08:59 Terazosin HCl (Hytrin) 5 mg DAILY@2100 PO 10/22/19 21:00 10/27/19 20:46 Tolterodine Tartrate (Detrol La) 4 mg DAILY PO 10/23/19 09:00 10/28/19 08:59 Tramadol HCl (Ultram) 50 mg Q6HP PRN PO MODERATE PAIN (PS 5-7) 10/23/19 12:00 10/28/19 12:30 Allergies Coded Allergies: morphine (Verified Adverse Reaction, Intermediate, nausea/vomiting, 0) Objective Physical Examination Examination GENERAL APPEARANCE:Patient seen, laying in bed, awake, alert, and oriented. Comfortable, in no acute distress. SKIN: Warm and moist. Incision intact. Flap pink, viable. Sutures in place. TERESA serosanguinous. minimal HEART: No chest wall abnormalities. Regular rate and rhythm with no murmurs a ppreciated. ABDOMEN: Abdomen is NT/ND, soft, colostomy functioning. . EXTREMITIES: no tenderness. Vital Signs Vital Signs Date Time Temp Pulse Resp B/P (MAP) Pulse Ox O2 Delivery O2 Flow Rate FiO2 10/28/19 15:22 16 Room Air 10/28/19 06:00 97.3 68 133/90 (104) 100 10/22/19 15:57 2.0 I&Os I&O- Last 24 Hours up to 6 AM 10/28/19 06:00 Intake Total 1930 ml Output Total 1850 ml Balance 80 ml Laboratory Data Microbiology Microbiology 10/22/19 Wound Culture - Final, Complete Streptococcus Group G Escherichia Coli 10/22/19 Anaerobic Culture - Final, Complete Prevotella Melaninogenica Impression Left ischial wound stage 4. S/p wound excision, left posterior thigh flap closure POD 6 Continue with bedrest, flap monitoring. Continue with PT Recommended bedrest for 3 weeks. Patient is compliant. Plan / VTE VTE Prophylaxis Ordered?: Yes RADHA ALTMAN DO Oct 28, 2019 15:44
--- NOTE | 2019-10-28 16:27 | IPNPDOC ---
Subjective Date Seen The patient was seen on 10/28/19. Subjective Chief Complaint/HPI Mr. Cevallos is a 39 year old male who was admitted due to pressure ulcer on the left buttock. He is s/p left ischial wound excision with thigh flap closure x 6 days. Pt is seen laying in bed this morning with family present. His is complaining of sciatic pain on the right side as he has to lay on that side to keep off the wound. He tries to raise his bed to take pressure off the wound but he is also on strict bed rest per plastic surgery so this is not easy for him. His family have tried aspercreme which works briefly; they are willing to try a lidocaine patch to see if it provides a longer period of relief. General: Reports: Normal Appetite; Denies: Chills, Night Sweats, Fatigue, Malaise Constitutional: Denies: Chills, Fever, Night Sweats Eyes: Denies: Pain ENT: Denies: Head Aches Skin: Denies: Rash Pulmonary: Denies: Dyspnea, Cough Cardiovascular: Denies: Chest Pain, Palpitations Gastrointestinal: Denies: Nausea, Vomiting, Abdominal Pain Genitourinary: Reports: Incontinence; Denies: Dysuria, Retention Hematologic: Denies: Bruising, Bleeding Excessively Musculoskeletal: Reports: Back Pain; Denies: Neck Pain, Joint Pain, Muscle Pain, Spasms Psych: Reports: Mood Normal Objective Physical Examination General Exam: Positive: Alert, Cooperative, No Acute Distress Eye Exam: Positive: PERRLA, Conjunctiva & lids normal, EOMI; Negative: Sclera icteric ENT Exam: Positive: Atraumatic, Mucous membr. moist/pink, Pharynx Normal Neck Exam: Positive: Supple; Negative: thyromegaly Chest Exam: Positive: Clear to auscultation, Normal air movement Heart Exam: Positive: Rate Normal, Regular Rhythm, Normal S1, Normal S2; Negative: Murmurs, Rubs Telemetry: Positive: No significant arrhythmia Abdomen Exam: Positive: Normal bowel sounds, Soft, Other (colostomy present and suprapubic cath present); Negative: Tenderness, Hepatospenomegaly Extremity Exam: Negative: Clubbing, Cyanosis, Edema Skin Exam: Positive: Nl turgor and temperature; Negative: Breakdown, Lesion Neuro Exam: Positive: Other (quadriplegic) Psych Exam: Positive: Mood NL, Oriented x 3 Assessment /Plan Assessment Pt is a 39 year old male with a history of traumatic quadriplegia, stage 4 sacral decubital ulcer, now reduced in stage to stage 4 ischial wound. He was admitted for an ischial flap closer of left ischial pressure ulcer by Dr. Khan. Wound culture positive for Escherichia coli and Streptococcus group G sensitive to ceftriaxone. Cefazolin was switched to ceftriaxone on 10/25/19. Also positive for Provotella melaninogenica - Flagyl added 10/28/2019 Stage 4 ischial wound - s/p Excision of Left Ischial wound, irrigation and debridement, bone reduction Left ischium, posterior thigh fasciocutaneous flap closure of left ischial wound with application of EpiFix. - Dr Khan follows patient - Bed rest (x 3 weeks) with bed PT - Continue Ceftriaxone for E. coli and Strep Group G. Added Flagyl for anaerobic coverage - Continued pain management with Percocet and Tramadol Traumatic Quadriplegia C5, C6 injury in 2004 -Muscle spasms due to history of C5 injury - continue Baclofen and Dantrolene Osteoporosis 10/06 [id number]: - currently bed rest with nursing position changes and bed PT per plastic surgeon MDD and Anxiety - Continue Hydroxyzine, Wellbutrin Chronic urinary retention - Patient has suprapubic catheter - continue Detrol La GERD - continue PPI, sucralfate Sciatica, right - Lidocaine patch to right hip - moist heat to effected hip - elevate HOB for some positional relief as discussed H/o Severe protein malnutrition in 2019 now with improved nutrition after diverting colostomy and being able to eat normally. Plan/VTE VTE Prophylaxis Ordered?: Yes (Lovenox SQ) VS, I&O, 24H, Fishbone Vital Signs/I&O Vital Signs Date Time Temp Pulse Resp B/P (MAP) Pulse Ox O2 Delivery O2 Flow Rate FiO2 10/28/19 15:52 18 10/28/19 15:22 Room Air 10/28/19 06:00 97.3 68 133/90 (104) 100 10/22/19 15:57 2.0 I&O- Last 24 Hours up to 6 AM 10/28/19 06:00 Intake Total 1930 ml Output Total 1850 ml Balance 80 ml Laboratory Data Microbiology Microbiology 10/22/19 Wound Culture - Final, Complete Streptococcus Group G Escherichia Coli 10/22/19 Anaerobic Culture - Final, Complete Prevotella Melaninogenica RADHA YO PA-C Oct 28, 2019 16:27 CELESTINA SAINI MD Oct 30, 2019 05:12
[2019-10-28] MEDS: TERAZOSIN 5 MG CAP PO SCH (20:05)
[2019-10-28 21:17] VITALS: BP 130/72
[2019-10-28] MEDS: ONDANSETRON 4MG/2ML VIAL (J2405) IV PRN (22:32)
[2019-10-29] MEDS: cefTRIAXone SOD 1 GM in D5W MINI-BAG PLUS 50 ML IV SCH ×2 (03:30→17:04)
[2019-10-29] MEDS: PERCOCET 5MG/325MG TAB PO PRN ×4 (03:31→19:02)
[2019-10-29] MEDS: ONDANSETRON 4MG/2ML VIAL (J2405) IV PRN ×3 (05:47→21:06)
[2019-10-29] MEDS: metroNIDAZOLE (FLAGYL) 500 MG TAB PO SCH ×3 (05:48→21:05)
[2019-10-29] MEDS: traMADol 50 MG TAB PO PRN ×3 (05:48→21:06)
[2019-10-29 06:00] VITALS: BP 132/80
[2019-10-29] MEDS: SUCRALFATE 1 GM TAB PO SCH ×2 (09:44→21:05)
[2019-10-29] MEDS: TOLTERODINE TARTRATE 2 MG LA CAP (DETROL LA) PO SCH (09:45)
[2019-10-29] MEDS: buPROPion **SR TABLET** (ZYBAN) 150MG PO SCH ×2 (09:45→21:05)
[2019-10-29] MEDS: BACLOFEN 10 MG TAB PO SCH ×3 (09:46→21:05)
[2019-10-29] MEDS: ASCORBIC ACID 500 MG TAB PO SCH (09:46)
[2019-10-29] MEDS: OMEPRAZOLE 20 MG CAP PO SCH ×2 (09:46→21:06)
[2019-10-29] MEDS: DANTROLENE 25 MG CAP PO SCH ×2 (09:46→21:05)
[2019-10-29] MEDS: ENOXAPARIN 40 MG/0.4 ML SYRINGE (J1650) SC SCH (09:47)
--- NOTE | 2019-10-29 12:14 | IPNPDOC ---
Text Note Date of Service The patient was seen on 10/29/19. NOTE Chief Complaint/HPI Mr. Cevallos is a 39 year old male who was admitted due to pressure ulcer on the left buttock. He is s/p left ischial wound excision with thigh flap closure x 6 days. His is complaining of sciatic pain on the right side as he has to lay on that side to keep off the wound. He is currently on bed rest per plastic surgery. Pt is seen laying in bed this morning with family present. He has had only mild relief of his sciatic pain with the use of Lido patch. He cannot use moist heat as he has very little sensation in the extremity and has accidentally burned himself in the past. He is concerned his air mattress no longer adjusts and is uncomfortable for him; nursing made aware. Objective Physical Examination General Exam: Positive: Alert, Cooperative, No Acute Distress Eye Exam: Positive: PERRLA, Conjunctiva & lids normal, EOMI; Negative: Sclera icteric ENT Exam: Positive: Atraumatic, Mucous membr. moist/pink, Pharynx Normal Neck Exam: Positive: Supple; Negative: thyromegaly Chest Exam: Positive: Clear to auscultation, Normal air movement Heart Exam: Positive: Rate Normal, Regular Rhythm, Normal S1, Normal S2; Negative: Murmurs, Rubs Telemetry: Positive: No significant arrhythmia Abdomen Exam: Positive: Normal bowel sounds, Soft, Other (colostomy present and suprapubic cath present); Negative: Tenderness, Hepatospenomegaly Extremity Exam: Negative: Clubbing, Cyanosis, Edema Skin Exam: Positive: Nl turgor and temperature; Negative: Breakdown, Lesion Neuro Exam: Positive: Other (quadriplegic) Psych Exam: Positive: Mood NL, Oriented x 3 Assessment /Plan Assessment Pt is a 39 year old male with a history of traumatic quadriplegia, stage 4 sacral decubital ulcer, now reduced in stage to stage 4 ischial wound. He was admitted for an ischial flap closer of left ischial pressure ulcer by Dr. Khan. Wound culture positive for Escherichia coli and Streptococcus group G sensitive to ceftriaxone. Cefazolin was switched to ceftriaxone on 10/25/19. Also positive for Provotella melaninogenica - Flagyl added 10/28/2019 Stage 4 ischial pressure wound - s/p Excision of Left Ischial wound, irrigation and debridement, bone reduction Left ischium, posterior thigh fasciocutaneous flap closure of left ischial wound with application of EpiFix. - Dr Khan follows patient - Bed rest (x 3 weeks) with bed PT - Continue Ceftriaxone for E. coli and Strep Group G. Added Flagyl for anaerobic coverage . Anareobic culture with prevotella. - Continued pain management with Percocet and Tramadol Traumatic Quadriplegia C5, C6 injury in 2004 -Muscle spasms due to history of C5 injury - continue Baclofen and Dantrolene Osteoporosis 2/2 [id number]: - currently bed rest with nursing position changes and bed PT per plastic surgeon MDD and Anxiety - Continue Hydroxyzine, Wellbutrin Chronic urinary retention - Patient has suprapubic catheter - continue Detrol La GERD - continue PPI, sucralfate Sciatica, right - Lidocaine patch to right hip - moist heat to effected hip - elevate HOB for some positional relief as discussed H/o Severe protein malnutrition in 2019 now with improved nutrition after diverting colostomy and being able to eat normally. Plan/VTE VTE Prophylaxis Ordered?: Yes (Lovenox SQ) VS,Fishbone, I+O VS, Fishbone, I+O Vital Signs Date Time Temp Pulse Resp B/P (MAP) Pulse Ox O2 Delivery O2 Flow Rate FiO2 10/29/19 09:46 18 Room Air 10/29/19 06:00 98.2 74 132/80 (97) 97 I&O- Last 24 Hours up to 6 AM 10/29/19 06:00 Intake Total 1950 ml Output Total 1930 ml Balance 20 ml RADHA YO PA-C Oct 29, 2019 12:14 CELESTINA SAINI MD Oct 30, 2019 05:14
[2019-10-29 14:00] VITALS: BP 113/68
--- NOTE | 2019-10-29 16:26 | IPNPDOC ---
Subjective General Date Seen: Oct 29, 2019 Subject Chief Complaint/History The patient is a 39-year-old male admitted with a reason for visit of Pressure Ulcer Left Buttock. Feeling well. Stating the Tramadol is not enough for pain relief for him and would like to switch to Percocet temporarily. Current Medications Current Medications Current Medications Medications (Trade) Dose Ordered Sig/Claudia Route PRN Reason Start Time Stop Time Status Last Admin Dose Admin Albuterol Sulfate (Proventil, Ventolin Hfa) 2 puff RQ6H PRN INH wheezing 10/22/19 12:15 Ascorbic Acid (Vitamin C) 500 mg DAILY PO 10/23/19 09:00 10/29/19 09:46 Baclofen (Lioresal) 20 mg TID PO 10/23/19 09:00 10/29/19 09:46 Bisacodyl (Dulcolax Tab) 5 mg DAILY PRN PO CONSTIPATION 10/22/19 12:15 Bupropion HCl (Zyban, Wellbutrin Sr) 150 mg BID PO 10/22/19 21:00 10/29/19 09:45 Cefazolin Sodium 1 gm/Dextrose 50 ml @ 100 mls/hr Q8H IV 10/22/19 16:00 10/25/19 14:30 DC 10/25/19 08:28 Ceftriaxone Sodium 1 gm/ Dextrose 50 ml @ 100 mls/hr Q12H IV 10/25/19 16:00 10/29/19 03:30 Dantrolene Sodium (Dantrium) 50 mg BID PO 10/22/19 21:00 10/29/19 09:46 Enoxaparin Sodium (Lovenox) 40 mg DAILY SC 10/23/19 09:00 10/29/19 09:47 Fentanyl Citrate (Sublimaze) 25 mcg Q5MP PRN IV PAIN LEVEL 5-10 10/22/19 11:00 10/22/19 12:00 DC Hydralazine HCl (Apresoline) 5 mg Q5M IV 10/22/19 12:45 10/22/19 16:55 DC 10/22/19 12:44 Hydromorphone HCl (Dilaudid) 0.2 mg Q5MP PRN IV PAIN LEVEL 4-7 10/22/19 11:00 10/22/19 11:24 DC 10/22/19 11:20 Hydromorphone HCl (Dilaudid) 0.2 mg Q5MP PRN IV PAIN LEVEL 4-7 10/22/19 14:30 10/22/19 15:30 DC 10/22/19 15:20 Hydroxyzine HCl (Atarax) 50 mg Q6HP PRN PO ANXIETY 10/22/19 12:15 10/28/19 22:32 Ketorolac Tromethamine (ToRADol) 10 mg Q6HP PRN PO MODERATE PAIN (PS 5-7) 10/22/19 11:00 10/22/19 10:50 DC Ketorolac Tromethamine (ToRADol) 10 mg Q6HP PRN PO MODERATE PAIN (PS 5-7) 10/22/19 16:00 10/27/19 15:59 DC 10/24/19 01:17 Ketorolac Tromethamine (ToRADol) 30 mg ONCE PRN IV PAIN 10/22/19 13:15 10/22/19 13:34 DC 10/22/19 10:17 Labetalol HCl (Normodyne, Trandate) 5 mg Q5M IV 10/22/19 12:45 10/22/19 16:56 DC 10/22/19 12:31 Lactated Ringer's 1,000 ml @ 100 mls/hr Q10H IV 10/22/19 11:00 10/22/19 12:00 DC 10/22/19 09:55 Lidocaine (Lidoderm Patch) 1 patch DAILY PRN TD MILD/MODERATE PAIN (PS 1-7) 10/28/19 09:00 Lidocaine (Lidoderm Patch) 2 patch DAILY PRN TD MODERATE/SEVERE PAIN (PS 5-10) 10/28/19 09:00 10/28/19 12:31 Metronidazole (Flagyl) 500 mg Q8H PO 10/28/19 14:00 11/06/19 13:59 10/29/19 14:42 Non-Formulary Medication ( See Comment Field Below ) REMOVE LIDODERM PATCH DAILY@21 XX 10/28/19 21:00 Omeprazole (PriLOSEC) 20 mg BID PO 10/22/19 21:00 10/29/19 09:46 Ondansetron HCl (ZOFRAN INJection) 4 mg Q4H PRN IV NAUSEA 10/22/19 11:00 10/29/19 14:42 Ondansetron HCl (ZOFRAN INJection) 4 mg Q4HP PRN IV NAUSEA OR VOMITING 10/22/19 11:00 10/22/19 12:00 DC 10/22/19 10:15 Oxycodone/ Acetaminophen (Percocet 5mg/ 325mg Tablet) 1 tab ASDIRECTED PRN PO PAIN LEVEL 1-4 10/22/19 11:00 10/22/19 11:24 DC 10/22/19 11:00 Oxycodone/ Acetaminophen (Percocet 5mg/ 325mg Tablet) 1 tab Q4H PRN PO SEVERE PAIN (PS 8-10) 10/22/19 11:00 10/29/19 14:45 Sucralfate (Carafate) 1 gm BID PO 10/22/19 21:00 10/29/19 09:44 Terazosin HCl (Hytrin) 5 mg DAILY@2100 PO 10/22/19 21:00 10/28/19 20:05 Tolterodine Tartrate (Detrol La) 4 mg DAILY PO 10/23/19 09:00 10/29/19 09:45 Tramadol HCl (Ultram) 50 mg Q6HP PRN PO MODERATE PAIN (PS 5-7) 10/23/19 12:00 10/29/19 12:11 Allergies Coded Allergies: morphine (Verified Adverse Reaction, Intermediate, nausea/vomiting, 10/22/19) Objective Physical Examination Examination GENERAL APPEARANCE:Patient seen, laying in bed, awake, alert, and oriented. Comfortable, in no acute distress. SKIN: Warm and moist. Flap viable. Drain with minimal serosanguinous drainage. LUNGS: Clear to auscultation bilaterally. No wheezing appreciated. HEART: No chest wall abnormalities. Regular rate and rhythm with no murmurs appreciated. ABDOMEN: Abdomen is soft, non-tender, non-distended. EXTREMITIES: no tenderness. Vital Signs Vital Signs Date Time Temp Pulse Resp B/P (MAP) Pulse Ox O2 Delivery O2 Flow Rate FiO2 10/29/19 15:15 18 Room Air 10/29/19 14:00 97.9 77 113/68 (83) 98 I&Os I&O- Last 24 Hours up to 6 AM 10/29/19 06:00 Intake Total 1950 ml Output Total 1930 ml Balance 20 ml Laboratory Data Microbiology Microbiology 10/22/19 Wound Culture - Final, Complete Streptococcus Group G Escherichia Coli 10/22/19 Anaerobic Culture - Final, Complete Prevotella Melaninogenica Impression S/p posterior thigh flap closure of ischial stage 4 wound. POD 7 Continue with bedrest, offloading Healing well. Change Tramadol to Percocet for pain control. Plan / VTE VTE Prophylaxis Ordered?: Yes (Lovenox SQ) RADHA ALTMAN DO Oct 29, 2019 16:26
[2019-10-29] MEDS: hydrOXYzine 50 MG TAB PO PRN (21:05)
[2019-10-29] MEDS: TERAZOSIN 5 MG CAP PO SCH (21:06)
[2019-10-29 22:00] VITALS: BP 126/75
[2019-10-30] MEDS: ONDANSETRON 4MG/2ML VIAL (J2405) IV PRN ×3 (03:40→21:37)
[2019-10-30] MEDS: PERCOCET 5MG/325MG TAB PO PRN ×3 (03:41→18:26)
[2019-10-30] MEDS: cefTRIAXone SOD 1 GM in D5W MINI-BAG PLUS 50 ML IV SCH (03:51)
[2019-10-30] MEDS: metroNIDAZOLE (FLAGYL) 500 MG TAB PO SCH ×3 (05:06→21:25)
[2019-10-30] MEDS: traMADol 50 MG TAB PO PRN ×3 (05:06→21:27)
[2019-10-30 06:00] VITALS: BP 123/73
[2019-10-30] MEDS ORDERED: cefTRIAXone SOD 1 GM in D5W MINI-BAG PLUS 50 ML IV ONE (09:00)
[2019-10-30] MEDS: SUCRALFATE 1 GM TAB PO SCH ×2 (09:22→21:25)
[2019-10-30] MEDS: ASCORBIC ACID 500 MG TAB PO SCH (09:22)
[2019-10-30] MEDS: buPROPion **SR TABLET** (ZYBAN) 150MG PO SCH ×2 (09:22→21:25)
[2019-10-30] MEDS: TOLTERODINE TARTRATE 2 MG LA CAP (DETROL LA) PO SCH (09:22)
[2019-10-30] MEDS: DANTROLENE 25 MG CAP PO SCH ×2 (09:22→21:25)
[2019-10-30] MEDS: BACLOFEN 10 MG TAB PO SCH ×3 (09:22→21:25)
[2019-10-30] MEDS: OMEPRAZOLE 20 MG CAP PO SCH ×2 (09:22→21:25)
[2019-10-30] MEDS: ENOXAPARIN 40 MG/0.4 ML SYRINGE (J1650) SC SCH (09:28)
--- NOTE | 2019-10-30 12:09 | IPNPDOC ---
Subjective General Date Seen: Oct 30, 2019 Subject Chief Complaint/History The patient is a 39-year-old male admitted with a reason for visit of Pressure Ulcer Left Buttock. Current Medications Current Medications Current Medications Medications (Trade) Dose Ordered Sig/Claudia Route PRN Reason Start Time Stop Time Status Last Admin Dose Admin Albuterol Sulfate (Proventil, Ventolin Hfa) 2 puff RQ6H PRN INH wheezing 10/22/19 12:15 Ascorbic Acid (Vitamin C) 500 mg DAILY PO 10/23/19 09:00 10/30/19 09:22 Baclofen (Lioresal) 20 mg TID PO 10/23/19 09:00 10/30/19 09:22 Bisacodyl (Dulcolax Tab) 5 mg DAILY PRN PO CONSTIPATION 10/22/19 12:15 Bupropion HCl (Zyban, Wellbutrin Sr) 150 mg BID PO 10/22/19 21:00 10/30/19 09:22 Cefazolin Sodium 1 gm/Dextrose 50 ml @ 100 mls/hr Q8H IV 10/22/19 16:00 10/25/19 14:30 DC 10/25/19 08:28 Ceftriaxone Sodium 1 gm/ Dextrose 50 ml @ 100 mls/hr Q12H IV 10/25/19 16:00 10/30/19 08:50 DC 10/30/19 03:51 Ceftriaxone Sodium 2 gm/ Dextrose 50 ml @ 100 mls/hr Q24H IV 10/31/19 09:00 Dantrolene Sodium (Dantrium) 50 mg BID PO 10/22/19 21:00 10/30/19 09:22 Enoxaparin Sodium (Lovenox) 40 mg DAILY SC 10/23/19 09:00 10/30/19 09:28 Fentanyl Citrate (Sublimaze) 25 mcg Q5MP PRN IV PAIN LEVEL 5-10 10/22/19 11:00 10/22/19 12:00 DC Hydralazine HCl (Apresoline) 5 mg Q5M IV 10/22/19 12:45 10/22/19 16:55 DC 10/22/19 12:44 Hydromorphone HCl (Dilaudid) 0.2 mg Q5MP PRN IV PAIN LEVEL 4-7 10/22/19 11:00 10/22/19 11:24 DC 10/22/19 11:20 Hydromorphone HCl (Dilaudid) 0.2 mg Q5MP PRN IV PAIN LEVEL 4-7 10/22/19 14:30 10/22/19 15:30 DC 10/22/19 15:20 Hydroxyzine HCl (Atarax) 50 mg Q6HP PRN PO ANXIETY 10/22/19 12:15 10/29/19 21:05 Ketorolac Tromethamine (ToRADol) 10 mg Q6HP PRN PO MODERATE PAIN (PS 5-7) 10/22/19 11:00 10/22/19 10:50 DC Ketorolac Tromethamine (ToRADol) 10 mg Q6HP PRN PO MODERATE PAIN (PS 5-7) 10/22/19 16:00 10/27/19 15:59 DC 10/24/19 01:17 Ketorolac Tromethamine (ToRADol) 30 mg ONCE PRN IV PAIN 10/22/19 13:15 10/22/19 13:34 DC 10/22/19 10:17 Labetalol HCl (Normodyne, Trandate) 5 mg Q5M IV 10/22/19 12:45 10/22/19 16:56 DC 10/22/19 12:31 Lactated Ringer's 1,000 ml @ 100 mls/hr Q10H IV 10/22/19 11:00 10/22/19 12:00 DC 10/22/19 09:55 Lidocaine (Lidoderm Patch) 1 patch DAILY PRN TD MILD/MODERATE PAIN (PS 1-7) 10/28/19 09:00 Lidocaine (Lidoderm Patch) 2 patch DAILY PRN TD MODERATE/SEVERE PAIN (PS 5-10) 10/28/19 09:00 10/28/19 12:31 Metronidazole (Flagyl) 500 mg Q8H PO 10/28/19 14:00 11/06/19 13:59 10/30/19 05:06 Non-Formulary Medication ( See Comment Field Below ) REMOVE LIDODERM PATCH DAILY@21 XX 10/28/19 21:00 Omeprazole (PriLOSEC) 20 mg BID PO 10/22/19 21:00 10/30/19 09:22 Ondansetron HCl (ZOFRAN INJection) 4 mg Q4H PRN IV NAUSEA 10/22/19 11:00 10/30/19 03:40 Ondansetron HCl (ZOFRAN INJection) 4 mg Q4HP PRN IV NAUSEA OR VOMITING 10/22/19 11:00 10/22/19 12:00 DC 10/22/19 10:15 Oxycodone/ Acetaminophen (Percocet 5mg/ 325mg Tablet) 1 tab ASDIRECTED PRN PO PAIN LEVEL 1-4 10/22/19 11:00 10/22/19 11:24 DC 10/22/19 11:00 Oxycodone/ Acetaminophen (Percocet 5mg/ 325mg Tablet) 1 tab Q4H PRN PO SEVERE PAIN (PS 8-10) 10/22/19 11:00 10/29/19 16:28 DC 10/29/19 14:45 Oxycodone/ Acetaminophen (Percocet 5mg/ 325mg Tablet) 2 tab Q6HP PRN PO SEVERE PAIN (PS 8-10) 10/29/19 16:30 10/30/19 11:35 Sucralfate (Carafate) 1 gm BID PO 10/22/19 21:00 10/30/19 09:22 Terazosin HCl (Hytrin) 5 mg DAILY@2100 PO 10/22/19 21:00 10/29/19 21:06 Tolterodine Tartrate (Detrol La) 4 mg DAILY PO 10/23/19 09:00 10/30/19 09:22 Tramadol HCl (Ultram) 50 mg Q6HP PRN PO MODERATE PAIN (PS 5-7) 10/23/19 12:00 10/30/19 05:06 Allergies Coded Allergies: morphine (Verified Adverse Reaction, Intermediate, nausea/vomiting, 10/22/19) Objective Physical Examination Examination GENERAL APPEARANCE:Patient seen, laying in bed, awake, alert, and oriented. Comfortable, in no acute distress. SKIN: Warm and moist. Flap viable, pink. Incision intact. Drain serosanguinous. LUNGS: Clear to auscultation bilaterally. No wheezing appreciated. HEART: No chest wall abnormalities. Regular rate and rhythm with no murmurs appreciated. ABDOMEN: Abdomen is soft, non-tender, non-distended. EXTREMITIES: No edema identified. No calf tenderness. Vital Signs Vital Signs Date Time Temp Pulse Resp B/P (MAP) Pulse Ox O2 Delivery O2 Flow Rate FiO2 2/26/20 11:35 18 Room Air 10/30/19 06:00 97.6 76 123/73 (90) 95 I&Os I&O- Last 24 Hours up to 6 AM 10/30/19 06:00 Intake Total 1630 ml Output Total 2550 ml Balance -920 ml Laboratory Data Microbiology Microbiology 10/22/19 Wound Culture - Final, Complete Streptococcus Group G Escherichia Coli 10/22/19 Anaerobic Culture - Final, Complete Prevotella Melaninogenica Impression S/p Posterior thigh flap to left ischial stage 4 wound. POD 8 Continue with strict bedrest. Pain control. Healing well. Plan for continuing with bedrest until 3 weeks post op to protect the flap. Plan / VTE VTE Prophylaxis Ordered?: Yes (Lovenox SQ) RADHA ALTMAN DO Oct 30, 2019 12:09
--- NOTE | 2019-10-30 13:03 | IPNPDOC ---
Text Note Date of Service The patient was seen on 10/30/19. NOTE Chief Complaint/HPI Mr. Cevallos is a 39 year old male who was admitted due to pressure ulcer on the left buttock. He is s/p left ischial wound excision with thigh flap closure x 6 days. He is currently on bed rest x 3 weeks per plastic surgery. Pt is seen laying in bed this morning with family present. No acute events overnight. Pt bed is now working which gives him some relief from back/hip pain. Objective Physical Examination General Exam: Positive: Alert, Cooperative, No Acute Distress Eye Exam: Positive: PERRLA, Conjunctiva & lids normal, EOMI; Negative: Sclera icteric ENT Exam: Positive: Atraumatic, Mucous membr. moist/pink, Pharynx Normal Neck Exam: Positive: Supple; Negative: thyromegaly Chest Exam: Positive: Clear to auscultation, Normal air movement Heart Exam: Positive: Rate Normal, Regular Rhythm, Normal S1, Normal S2; Negative: Murmurs, Rubs Telemetry: Positive: No significant arrhythmia Abdomen Exam: Positive: Normal bowel sounds, Soft, Other (functioning colostomy present and suprapubic cath present); Negative: Tenderness, Hepatospenomegaly Extremity Exam: Negative: Clubbing, Cyanosis, Edema Skin Exam: Positive: Nl turgor and temperature; Negative: Breakdown, Lesion Neuro Exam: Positive: Other (quadriplegic) Psych Exam: Positive: Mood NL, Oriented x 3 Assessment /Plan Assessment Pt is a 39 year old male with a history of traumatic quadriplegia, stage 4 sacral decubital ulcer, now reduced in stage to stage 4 ischial wound. He was admitted for an ischial flap closer of left ischial pressure ulcer by Dr. Khan. Wound culture positive for Escherichia coli and Streptococcus group G sensitive to ceftriaxone. Cefazolin was switched to ceftriaxone on 10/25/19. Also positive for Provotella melaninogenica - Flagyl added 10/28/2019 Stage 4 ischial pressure wound - s/p Excision of Left Ischial wound, irrigation and debridement, bone reduction Left ischium, posterior thigh fasciocutaneous flap closure of left ischial wound with application of EpiFix. - Dr Khan follows patient - Bed rest (x 3 weeks) with bed PT - Continue Ceftriaxone for E. coli and Strep Group G. Added Flagyl for anaerobic coverage. - Continued pain management with Percocet and Tramadol Traumatic Quadriplegia C5, C6 injury in 2004 -Muscle spasms due to history of C5 injury - continue Baclofen and Dantrolene Osteoporosis 2/2 [id number]: - currently bed rest with nursing position changes and bed PT per plastic surgeon MDD and Anxiety - Continue Hydroxyzine, Wellbutrin Chronic urinary retention - Patient has suprapubic catheter - continue Detrol La GERD - continue PPI, sucralfate Sciatica, right - Lidocaine patch to right hip - elevate HOB for some positional relief as discussed H/O Severe protein malnutrition in 2019 - improved with diverting colostomy and normal caloric intake Plan/VTE VTE Prophylaxis Ordered?: Yes (Lovenox SQ) VS,Fishbone, I+O VS, Fishbone, I+O Vital Signs Date Time Temp Pulse Resp B/P (MAP) Pulse Ox O2 Delivery O2 Flow Rate FiO2 10/30/19 11:35 18 Room Air 10/30/19 06:00 97.6 76 123/73 (90) 95 I&O- Last 24 Hours up to 6 AM 10/30/19 06:00 Intake Total 1630 ml Output Total 2550 ml Balance -920 ml RADHA OY PA-C Oct 30, 2019 13:03
[2019-10-30 14:00] VITALS: BP 121/72
[2019-10-30 21:18] VITALS: BP 121/73
[2019-10-30] MEDS: TERAZOSIN 5 MG CAP PO SCH (21:26)
[2019-10-30] MEDS: ONDANSETRON 4 MG ORAL DISINTEGRATING TAB (Q0162 PER 1MG) PO PRN (22:21)
[2019-10-31] MEDS: PERCOCET 5MG/325MG TAB PO PRN ×3 (01:44→16:11)
[2019-10-31] MEDS: metroNIDAZOLE (FLAGYL) 500 MG TAB PO SCH (05:21)
[2019-10-31] MEDS: ONDANSETRON 4 MG ORAL DISINTEGRATING TAB (Q0162 PER 1MG) PO PRN (05:21)
[2019-10-31] MEDS: traMADol 50 MG TAB PO PRN ×3 (05:22→21:10)
[2019-10-31] MEDS ORDERED: cefTRIAXone SOD 2 GM in D5W MINI-BAG PLUS 50 ML IV SCH (09:00)
[2019-10-31] MEDS: TOLTERODINE TARTRATE 2 MG LA CAP (DETROL LA) PO SCH (10:04)
[2019-10-31] MEDS: ENOXAPARIN 40 MG/0.4 ML SYRINGE (J1650) SC SCH (10:05)
[2019-10-31] MEDS: OMEPRAZOLE 20 MG CAP PO SCH ×2 (10:05→21:09)
[2019-10-31] MEDS: BACLOFEN 10 MG TAB PO SCH ×3 (10:05→21:09)
[2019-10-31] MEDS: buPROPion **SR TABLET** (ZYBAN) 150MG PO SCH ×2 (10:05→21:10)
[2019-10-31] MEDS: SUCRALFATE 1 GM TAB PO SCH ×2 (10:06→21:09)
[2019-10-31] MEDS: ASCORBIC ACID 500 MG TAB PO SCH (10:06)
[2019-10-31] MEDS: DANTROLENE 25 MG CAP PO SCH ×2 (10:06→21:09)
--- NOTE | 2019-10-31 15:34 | IPNPDOC ---
Subjective General Date Seen: Oct 31, 2019 Subject Chief Complaint/History The patient is a 39-year-old male admitted with a reason for visit of Pressure Ulcer Left Buttock. s/p Left Ischial wound debrdiement and closure with posterior thigh flap POD 9. Doing well. No complains. Current Medications Current Medications Current Medications Medications (Trade) Dose Ordered Sig/Claudia Route PRN Reason Start Time Stop Time Status Last Admin Dose Admin Albuterol Sulfate (Proventil, Ventolin Hfa) 2 puff RQ6H PRN INH wheezing 10/22/19 12:15 Ascorbic Acid (Vitamin C) 500 mg DAILY PO 10/23/19 09:00 10/31/19 10:06 Baclofen (Lioresal) 20 mg TID PO 10/23/19 09:00 10/31/19 10:05 Bisacodyl (Dulcolax Tab) 5 mg DAILY PRN PO CONSTIPATION 10/22/19 12:15 Bupropion HCl (Zyban, Wellbutrin Sr) 150 mg BID PO 10/22/19 21:00 10/31/19 10:05 Cefazolin Sodium 1 gm/Dextrose 50 ml @ 100 mls/hr Q8H IV 10/22/19 16:00 10/25/19 14:30 DC 10/25/19 08:28 Ceftriaxone Sodium 1 gm/ Dextrose 50 ml @ 100 mls/hr Q12H IV 10/25/19 16:00 10/30/19 08:50 DC 10/30/19 03:51 Ceftriaxone Sodium 2 gm/ Dextrose 50 ml @ 100 mls/hr Q24H IV 10/31/19 09:00 Cancel Dantrolene Sodium (Dantrium) 50 mg BID PO 10/22/19 21:00 10/31/19 10:06 Enoxaparin Sodium (Lovenox) 40 mg DAILY SC 10/23/19 09:00 10/31/19 10:05 Fentanyl Citrate (Sublimaze) 25 mcg Q5MP PRN IV PAIN LEVEL 5-10 10/22/19 11:00 10/22/19 12:00 DC Hydralazine HCl (Apresoline) 5 mg Q5M IV 10/22/19 12:45 10/22/19 16:55 DC 10/22/19 12:44 Hydromorphone HCl (Dilaudid) 0.2 mg Q5MP PRN IV PAIN LEVEL 4-7 10/22/19 11:00 10/22/19 11:24 DC 10/22/19 11:20 Hydromorphone HCl (Dilaudid) 0.2 mg Q5MP PRN IV PAIN LEVEL 4-7 10/22/19 14:30 10/22/19 15:30 DC 10/22/19 15:20 Hydroxyzine HCl (Atarax) 50 mg Q6HP PRN PO ANXIETY 10/22/19 12:15 10/29/19 21:05 Ketorolac Tromethamine (ToRADol) 10 mg Q6HP PRN PO MODERATE PAIN (PS 5-7) 10/22/19 11:00 10/22/19 10:50 DC Ketorolac Tromethamine (ToRADol) 10 mg Q6HP PRN PO MODERATE PAIN (PS 5-7) 10/22/19 16:00 10/27/19 15:59 DC 10/24/19 01:17 Ketorolac Tromethamine (ToRADol) 30 mg ONCE PRN IV PAIN 10/22/19 13:15 10/22/19 13:34 DC 10/22/19 10:17 Labetalol HCl (Normodyne, Trandate) 5 mg Q5M IV 10/22/19 12:45 10/22/19 16:56 DC 10/22/19 12:31 Lactated Ringer's 1,000 ml @ 100 mls/hr Q10H IV 10/22/19 11:00 10/22/19 12:00 DC 10/22/19 09:55 Lidocaine (Lidoderm Patch) 1 patch DAILY PRN TD MILD/MODERATE PAIN (PS 1-7) 10/28/19 09:00 Lidocaine (Lidoderm Patch) 2 patch DAILY PRN TD MODERATE/SEVERE PAIN (PS 5-10) 10/28/19 09:00 10/28/19 12:31 Metronidazole (Flagyl) 500 mg Q8H PO 10/28/19 14:00 10/31/19 10:25 DC 10/31/19 05:21 Non-Formulary Medication ( See Comment Field Below ) REMOVE LIDODERM PATCH DAILY@21 XX 10/28/19 21:00 Omeprazole (PriLOSEC) 20 mg BID PO 10/22/19 21:00 10/31/19 10:05 Ondansetron HCl (ZOFRAN INJection) 4 mg Q4H PRN IV NAUSEA 10/22/19 11:00 10/30/19 14:53 Ondansetron HCl (ZOFRAN INJection) 4 mg Q4HP PRN IV NAUSEA OR VOMITING 10/22/19 11:00 10/22/19 12:00 DC 10/22/19 10:15 Ondansetron HCl (Zofran Odt) 4 mg Q4HP PRN PO NAUSEA OR VOMITING 10/30/19 22:00 10/31/19 05:21 Oxycodone/ Acetaminophen (Percocet 5mg/ 325mg Tablet) 1 tab ASDIRECTED PRN PO PAIN LEVEL 1-4 10/22/19 11:00 10/22/19 11:24 DC 10/22/19 11:00 Oxycodone/ Acetaminophen (Percocet 5mg/ 325mg Tablet) 1 tab Q4H PRN PO SEVERE PAIN (PS 8-10) 10/22/19 11:00 10/29/19 16:28 DC 10/29/19 14:45 Oxycodone/ Acetaminophen (Percocet 5mg/ 325mg Tablet) 2 tab Q6HP PRN PO SEVERE PAIN (PS 8-10) 10/29/19 16:30 10/31/19 10:05 Sucralfate (Carafate) 1 gm BID PO 10/22/19 21:00 10/31/19 10:06 Terazosin HCl (Hytrin) 5 mg DAILY@2100 PO 10/22/19 21:00 10/30/19 21:26 Tolterodine Tartrate (Detrol La) 4 mg DAILY PO 10/23/19 09:00 10/31/19 10:04 Tramadol HCl (Ultram) 50 mg Q6HP PRN PO MODERATE PAIN (PS 5-7) 10/23/19 12:00 10/31/19 13:56 Allergies Coded Allergies: morphine (Verified Adverse Reaction, Intermediate, nausea/vomiting, 10/22/19) Objective Physical Examination Examination GENERAL APPEARANCE:Patient seen, laying in bed, awake, alert, and oriented. Comfortable, in no acute distress. SKIN: Warm and moist. Incision intact. Flap viable. Sutures in place. TERESA drain 10cc/24 hrz LUNGS: Clear to auscultation bilaterally. No wheezing appreciated. HEART: No chest wall abnormalities. Regular rate and rhythm with no murmurs appreciated. EXTREMITIES: No edema identified. No calf tenderness. Vital Signs Vital Signs Date Time Temp Pulse Resp B/P (MAP) Pulse Ox O2 Delivery O2 Flow Rate FiO2 10/31/19 14:26 18 10/30/19 21:26 121/73 10/30/19 21:18 98.4 78 98 Room Air I&Os I&O- Last 24 Hours up to 6 AM 10/31/19 06:00 Intake Total 1820 ml Output Total 2650 ml Balance -830 ml Laboratory Data Microbiology Microbiology 10/22/19 Wound Culture - Final, Complete Streptococcus Group G Escherichia Coli 10/22/19 Anaerobic Culture - Final, Complete Prevotella Melaninogenica Impression Left ischial wound oren 4 S/p flap POD 9. Continue with bedrest total 3 weeks post op. Dressing changed. TERESA in place. Plan / VTE VTE Prophylaxis Ordered?: Yes (Lovenox SQ) RADHA ALTMAN DO Oct 31, 2019 15:34
[2019-10-31] MEDS: TERAZOSIN 5 MG CAP PO SCH (21:09)
[2019-10-31 22:00] VITALS: BP 120/81
[2019-11-01] MEDS: PERCOCET 5MG/325MG TAB PO PRN ×3 (00:52→18:24)
[2019-11-01] MEDS: traMADol 50 MG TAB PO PRN ×3 (04:07→20:43)
[2019-11-01 06:00] VITALS: BP 122/86
[2019-11-01] MEDS: buPROPion **SR TABLET** (ZYBAN) 150MG PO SCH ×2 (08:35→20:42)
[2019-11-01] MEDS: TOLTERODINE TARTRATE 2 MG LA CAP (DETROL LA) PO SCH (08:35)
[2019-11-01] MEDS: BACLOFEN 10 MG TAB PO SCH ×3 (08:35→20:42)
[2019-11-01] MEDS: ENOXAPARIN 40 MG/0.4 ML SYRINGE (J1650) SC SCH (08:36)
[2019-11-01] MEDS: SUCRALFATE 1 GM TAB PO SCH ×2 (08:36→20:43)
[2019-11-01] MEDS: OMEPRAZOLE 20 MG CAP PO SCH ×2 (08:36→20:42)
[2019-11-01] MEDS: ASCORBIC ACID 500 MG TAB PO SCH (08:36)
[2019-11-01] MEDS: DANTROLENE 25 MG CAP PO SCH ×2 (08:36→20:42)
--- NOTE | 2019-11-01 11:32 | IPNPDOC ---
Subjective General Date Seen: Nov 01, 2019 Subject Chief Complaint/History The patient is a 39-year-old male admitted with a reason for visit of Pressure Ulcer Left Buttock. s/p Left Ischial wound debridement and closure with posterior thigh flap POD 10. Doing well. No complains. Current Medications Current Medications Current Medications Medications (Trade) Dose Ordered Sig/Claudia Route PRN Reason Start Time Stop Time Status Last Admin Dose Admin Albuterol Sulfate (Proventil, Ventolin Hfa) 2 puff RQ6H PRN INH wheezing 10/22/19 12:15 Ascorbic Acid (Vitamin C) 500 mg DAILY PO 10/23/19 09:00 11/01/19 08:36 Baclofen (Lioresal) 20 mg TID PO 10/23/19 09:00 11/01/19 08:35 Bisacodyl (Dulcolax Tab) 5 mg DAILY PRN PO CONSTIPATION 10/22/19 12:15 Bupropion HCl (Zyban, Wellbutrin Sr) 150 mg BID PO 10/22/19 21:00 11/01/19 08:35 Cefazolin Sodium 1 gm/Dextrose 50 ml @ 100 mls/hr Q8H IV 10/22/19 16:00 10/25/19 14:30 DC 10/25/19 08:28 Ceftriaxone Sodium 1 gm/ Dextrose 50 ml @ 100 mls/hr Q12H IV 10/25/19 16:00 10/30/19 08:50 DC 10/30/19 03:51 Ceftriaxone Sodium 2 gm/ Dextrose 50 ml @ 100 mls/hr Q24H IV 10/31/19 09:00 Cancel Dantrolene Sodium (Dantrium) 50 mg BID PO 10/22/19 21:00 11/01/19 08:36 Enoxaparin Sodium (Lovenox) 40 mg DAILY SC 10/23/19 09:00 11/01/19 08:36 Fentanyl Citrate (Sublimaze) 25 mcg Q5MP PRN IV PAIN LEVEL 5-10 10/22/19 11:00 10/22/19 12:00 DC Hydralazine HCl (Apresoline) 5 mg Q5M IV 10/22/19 12:45 10/22/19 16:55 DC 10/22/19 12:44 Hydromorphone HCl (Dilaudid) 0.2 mg Q5MP PRN IV PAIN LEVEL 4-7 10/22/19 11:00 10/22/19 11:24 DC 10/22/19 11:20 Hydromorphone HCl (Dilaudid) 0.2 mg Q5MP PRN IV PAIN LEVEL 4-7 10/22/19 14:30 10/22/19 15:30 DC 10/22/19 15:20 Hydroxyzine HCl (Atarax) 50 mg Q6HP PRN PO ANXIETY 10/22/19 12:15 10/29/19 21:05 Ketorolac Tromethamine (ToRADol) 10 mg Q6HP PRN PO MODERATE PAIN (PS 5-7) 10/22/19 11:00 10/22/19 10:50 DC Ketorolac Tromethamine (ToRADol) 10 mg Q6HP PRN PO MODERATE PAIN (PS 5-7) 10/22/19 16:00 10/27/19 15:59 DC 10/24/19 01:17 Ketorolac Tromethamine (ToRADol) 30 mg ONCE PRN IV PAIN 10/22/19 13:15 10/22/19 13:34 DC 10/22/19 10:17 Labetalol HCl (Normodyne, Trandate) 5 mg Q5M IV 10/22/19 12:45 10/22/19 16:56 DC 10/22/19 12:31 Lactated Ringer's 1,000 ml @ 100 mls/hr Q10H IV 10/22/19 11:00 10/22/19 12:00 DC 10/22/19 09:55 Lidocaine (Lidoderm Patch) 1 patch DAILY PRN TD MILD/MODERATE PAIN (PS 1-7) 10/28/19 09:00 Lidocaine (Lidoderm Patch) 2 patch DAILY PRN TD MODERATE/SEVERE PAIN (PS 5-10) 10/28/19 09:00 10/28/19 12:31 Metronidazole (Flagyl) 500 mg Q8H PO 10/28/19 14:00 10/31/19 10:25 DC 10/31/19 05:21 Non-Formulary Medication ( See Comment Field Below ) REMOVE LIDODERM PATCH DAILY@21 XX 10/28/19 21:00 Omeprazole (PriLOSEC) 20 mg BID PO 10/22/19 21:00 11/01/19 08:36 Ondansetron HCl (ZOFRAN INJection) 4 mg Q4H PRN IV NAUSEA 10/22/19 11:00 10/30/19 14:53 Ondansetron HCl (ZOFRAN INJection) 4 mg Q4HP PRN IV NAUSEA OR VOMITING 10/22/19 11:00 10/22/19 12:00 DC 10/22/19 10:15 Ondansetron HCl (Zofran Odt) 4 mg Q4HP PRN PO NAUSEA OR VOMITING 10/30/19 22:00 10/31/19 05:21 Oxycodone/ Acetaminophen (Percocet 5mg/ 325mg Tablet) 1 tab ASDIRECTED PRN PO PAIN LEVEL 1-4 10/22/19 11:00 10/22/19 11:24 DC 10/22/19 11:00 Oxycodone/ Acetaminophen (Percocet 5mg/ 325mg Tablet) 1 tab Q4H PRN PO SEVERE PAIN (PS 8-10) 10/22/19 11:00 10/29/19 16:28 DC 10/29/19 14:45 Oxycodone/ Acetaminophen (Percocet 5mg/ 325mg Tablet) 2 tab Q6HP PRN PO SEVERE PAIN (PS 8-10) 10/29/19 16:30 11/01/19 08:35 Sucralfate (Carafate) 1 gm BID PO 10/22/19 21:00 11/01/19 08:36 Terazosin HCl (Hytrin) 5 mg DAILY@2100 PO 10/22/19 21:00 10/31/19 21:09 Tolterodine Tartrate (Detrol La) 4 mg DAILY PO 10/23/19 09:00 11/01/19 08:35 Tramadol HCl (Ultram) 50 mg Q6HP PRN PO MODERATE PAIN (PS 5-7) 10/23/19 12:00 11/01/19 04:07 Allergies Coded Allergies: morphine (Verified Adverse Reaction, Intermediate, nausea/vomiting, 10/22/19) Objective Physical Examination Examination GENERAL APPEARANCE:Patient seen, laying in bed, awake, alert, and oriented. Comfortable, in no acute distress. SKIN: Warm and moist. Flap viable, incision intact. HEART: No chest wall abnormalities. Regular rate and rhythm with no murmurs appreciated. ABDOMEN: Abdomen is soft, non-tender, non-distended. Vital Signs Vital Signs Date Time Temp Pulse Resp B/P (MAP) Pulse Ox O2 Delivery O2 Flow Rate FiO2 11/01/19 09:05 18 11/01/19 06:00 98.5 77 122/86 (98) 96 Room Air I&Os I&O- Last 24 Hours up to 6 AM 11/01/19 06:00 Intake Total 1880 ml Output Total 2660 ml Balance -780 ml Laboratory Data Microbiology Microbiology 10/22/19 Wound Culture - Final, Complete Streptococcus Group G Escherichia Coli 10/22/19 Anaerobic Culture - Final, Complete Prevotella Melaninogenica Impression s/p Left Ischial wound debridement and closure with posterior thigh flap POD 10. Continue with bedrest. Dressing change tomorrow. Monitor TERESA PT for upper extremities. Plan / VTE VTE Prophylaxis Ordered?: Yes (Lovenox SQ) RADHA ALTMAN DO Nov 01, 2019 11:32
[2019-11-01] MEDS: ONDANSETRON 4 MG ORAL DISINTEGRATING TAB (Q0162 PER 1MG) PO PRN (14:54)
[2019-11-01] MEDS: TERAZOSIN 5 MG CAP PO SCH (20:43)
[2019-11-01] MEDS: LIDOCAINE 5% (LIDODERM) PATCH TD PRN (23:14)
[2019-11-02] MEDS: PERCOCET 5MG/325MG TAB PO PRN ×3 (01:12→16:21)
[2019-11-02 05:43] VITALS: BP 136/92
[2019-11-02] MEDS: traMADol 50 MG TAB PO PRN ×3 (06:12→20:00)
[2019-11-02] MEDS: buPROPion **SR TABLET** (ZYBAN) 150MG PO SCH ×2 (09:44→19:59)
[2019-11-02] MEDS: SUCRALFATE 1 GM TAB PO SCH ×2 (09:45→19:59)
[2019-11-02] MEDS: TOLTERODINE TARTRATE 2 MG LA CAP (DETROL LA) PO SCH (09:45)
[2019-11-02] MEDS: DANTROLENE 25 MG CAP PO SCH ×2 (09:45→19:59)
[2019-11-02] MEDS: BACLOFEN 10 MG TAB PO SCH ×3 (09:45→19:58)
[2019-11-02] MEDS: OMEPRAZOLE 20 MG CAP PO SCH ×2 (09:45→19:59)
[2019-11-02] MEDS: ASCORBIC ACID 500 MG TAB PO SCH (09:45)
[2019-11-02] MEDS: ENOXAPARIN 40 MG/0.4 ML SYRINGE (J1650) SC SCH (09:46)
--- NOTE | 2019-11-02 12:37 | IPNPDOC ---
Subjective General Date Seen: Nov 02, 2019 Subject Chief Complaint/History The patient is a 39-year-old male admitted with a reason for visit of Pressure Ulcer Left Buttock. S/p Left ischial stage 4 wound I/D, posterior thigh flap closure POD 11. Doing well. No complains. Current Medications Current Medications Current Medications Medications (Trade) Dose Ordered Sig/Claduia Route PRN Reason Start Time Stop Time Status Last Admin Dose Admin Albuterol Sulfate (Proventil, Ventolin Hfa) 2 puff RQ6H PRN INH wheezing 10/22/19 12:15 Ascorbic Acid (Vitamin C) 500 mg DAILY PO 10/23/19 09:00 11/02/19 09:45 Baclofen (Lioresal) 20 mg TID PO 10/23/19 09:00 11/02/19 09:45 Bisacodyl (Dulcolax Tab) 5 mg DAILY PRN PO CONSTIPATION 10/22/19 12:15 Bupropion HCl (Zyban, Wellbutrin Sr) 150 mg BID PO 10/22/19 21:00 11/02/19 09:44 Cefazolin Sodium 1 gm/Dextrose 50 ml @ 100 mls/hr Q8H IV 10/22/19 16:00 10/25/19 14:30 DC 10/25/19 08:28 Ceftriaxone Sodium 1 gm/ Dextrose 50 ml @ 100 mls/hr Q12H IV 10/25/19 16:00 10/30/19 08:50 DC 10/30/19 03:51 Ceftriaxone Sodium 2 gm/ Dextrose 50 ml @ 100 mls/hr Q24H IV 10/31/19 09:00 Cancel Dantrolene Sodium (Dantrium) 50 mg BID PO 10/22/19 21:00 11/02/19 09:45 Enoxaparin Sodium (Lovenox) 40 mg DAILY SC 10/23/19 09:00 11/02/19 09:46 Fentanyl Citrate (Sublimaze) 25 mcg Q5MP PRN IV PAIN LEVEL 5-10 10/22/19 11:00 10/22/19 12:00 DC Hydralazine HCl (Apresoline) 5 mg Q5M IV 10/22/19 12:45 10/22/19 16:55 DC 10/22/19 12:44 Hydromorphone HCl (Dilaudid) 0.2 mg Q5MP PRN IV PAIN LEVEL 4-7 10/22/19 11:00 10/22/19 11:24 DC 10/22/19 11:20 Hydromorphone HCl (Dilaudid) 0.2 mg Q5MP PRN IV PAIN LEVEL 4-7 10/22/19 14:30 10/22/19 15:30 DC 10/22/19 15:20 Hydroxyzine HCl (Atarax) 50 mg Q6HP PRN PO ANXIETY 10/22/19 12:15 10/29/19 21:05 Ketorolac Tromethamine (ToRADol) 10 mg Q6HP PRN PO MODERATE PAIN (PS 5-7) 10/22/19 11:00 10/22/19 10:50 DC Ketorolac Tromethamine (ToRADol) 10 mg Q6HP PRN PO MODERATE PAIN (PS 5-7) 10/22/19 16:00 10/27/19 15:59 DC 10/24/19 01:17 Ketorolac Tromethamine (ToRADol) 30 mg ONCE PRN IV PAIN 10/22/19 13:15 10/22/19 13:34 DC 10/22/19 10:17 Labetalol HCl (Normodyne, Trandate) 5 mg Q5M IV 10/22/19 12:45 10/22/19 16:56 DC 10/22/19 12:31 Lactated Ringer's 1,000 ml @ 100 mls/hr Q10H IV 10/22/19 11:00 10/22/19 12:00 DC 10/22/19 09:55 Lidocaine (Lidoderm Patch) 1 patch DAILY PRN TD MILD/MODERATE PAIN (PS 1-7) 10/28/19 09:00 Lidocaine (Lidoderm Patch) 2 patch DAILY PRN TD MODERATE/SEVERE PAIN (PS 5-10) 10/28/19 09:00 11/01/19 23:14 Metronidazole (Flagyl) 500 mg Q8H PO 10/28/19 14:00 10/31/19 10:25 DC 10/31/19 05:21 Non-Formulary Medication ( See Comment Field Below ) REMOVE LIDODERM PATCH DAILY@21 XX 10/28/19 21:00 Omeprazole (PriLOSEC) 20 mg BID PO 10/22/19 21:00 11/02/19 09:45 Ondansetron HCl (ZOFRAN INJection) 4 mg Q4H PRN IV NAUSEA 10/22/19 11:00 10/30/19 14:53 Ondansetron HCl (ZOFRAN INJection) 4 mg Q4HP PRN IV NAUSEA OR VOMITING 10/22/19 11:00 10/22/19 12:00 DC 10/22/19 10:15 Ondansetron HCl (Zofran Odt) 4 mg Q4HP PRN PO NAUSEA OR VOMITING 10/30/19 22:00 11/01/19 14:54 Oxycodone/ Acetaminophen (Percocet 5mg/ 325mg Tablet) 1 tab ASDIRECTED PRN PO PAIN LEVEL 1-4 10/22/19 11:00 10/22/19 11:24 DC 10/22/19 11:00 Oxycodone/ Acetaminophen (Percocet 5mg/ 325mg Tablet) 1 tab Q4H PRN PO SEVERE PAIN (PS 8-10) 10/22/19 11:00 10/29/19 16:28 DC 10/29/19 14:45 Oxycodone/ Acetaminophen (Percocet 5mg/ 325mg Tablet) 2 tab Q6HP PRN PO SEVERE PAIN (PS 8-10) 10/29/19 16:30 11/02/19 09:44 Sucralfate (Carafate) 1 gm BID PO 10/22/19 21:00 11/02/19 09:45 Terazosin HCl (Hytrin) 5 mg DAILY@2100 PO 10/22/19 21:00 11/01/19 20:43 Tolterodine Tartrate (Detrol La) 4 mg DAILY PO 10/23/19 09:00 11/02/19 09:45 Tramadol HCl (Ultram) 50 mg Q6HP PRN PO MODERATE PAIN (PS 5-7) 10/23/19 12:00 11/02/19 06:12 Allergies Coded Allergies: morphine (Verified Adverse Reaction, Intermediate, nausea/vomiting, 10/22/19) Objective Physical Examination Examination GENERAL APPEARANCE:Patient seen, laying in bed, awake, alert, and oriented. Comfortable, in no acute distress. SKIN: Warm and moist. Incision intact. Nylon sutures in place. TERESA drain with minimal drainage. Flap viable. LUNGS: Clear to auscultation bilaterally. No wheezing appreciated. HEART: No chest wall abnormalities. Regular rate and rhythm with no murmurs appreciated. ABDOMEN: Abdomen is soft, non-tender, non-distended. EXTREMITIES: No edema identified. No calf tenderness. Vital Signs Vital Signs Date Time Temp Pulse Resp B/P (MAP) Pulse Ox O2 Delivery O2 Flow Rate FiO2 11/02/19 10:14 18 11/02/19 05:43 96.4 64 136/92 (107) 97 Room Air I&Os I&O- Last 24 Hours up to 6 AM 11/02/19 06:00 Intake Total 420 ml Output Total 2250 ml Balance -1830 ml Impression Healing well. Continue with bedrest. TERESA removed today. Dressing changed. Next dressing change Monday. Plan / VTE VTE Prophylaxis Ordered?: Yes (Lovenox SQ) RADHA ALTMAN DO Nov 02, 2019 12:37
[2019-11-02 15:39] VITALS: BP 137/92
[2019-11-02] MEDS: TERAZOSIN 5 MG CAP PO SCH (21:32)
[2019-11-02] MEDS: BISACODYL 5 MG TAB PO PRN (21:32)
[2019-11-02] MEDS: LIDOCAINE 5% (LIDODERM) PATCH TD PRN (21:33)
[2019-11-02 22:00] VITALS: BP 118/74
[2019-11-03] MEDS: PERCOCET 5MG/325MG TAB PO PRN ×4 (01:24→23:20)
[2019-11-03 06:00] VITALS: BP 120/72
[2019-11-03] MEDS: traMADol 50 MG TAB PO PRN ×3 (06:37→20:46)
[2019-11-03] MEDS: OMEPRAZOLE 20 MG CAP PO SCH ×2 (09:47→20:45)
[2019-11-03] MEDS: BACLOFEN 10 MG TAB PO SCH ×3 (09:47→20:45)
[2019-11-03] MEDS: BISACODYL 5 MG TAB PO PRN (09:47)
[2019-11-03] MEDS: SUCRALFATE 1 GM TAB PO SCH ×2 (09:47→20:45)
[2019-11-03] MEDS: ASCORBIC ACID 500 MG TAB PO SCH (09:48)
[2019-11-03] MEDS: ENOXAPARIN 40 MG/0.4 ML SYRINGE (J1650) SC SCH (09:48)
[2019-11-03] MEDS: buPROPion **SR TABLET** (ZYBAN) 150MG PO SCH ×2 (09:48→20:44)
[2019-11-03] MEDS: TOLTERODINE TARTRATE 2 MG LA CAP (DETROL LA) PO SCH (09:48)
[2019-11-03] MEDS: DANTROLENE 25 MG CAP PO SCH ×2 (09:48→20:45)
--- NOTE | 2019-11-03 11:59 | IPNPDOC ---
Text Note Date of Service The patient was seen on 11/03/19. NOTE Subjective: Pt is seen laying in bed this morning with family present. No acute events overnight. Pt bed is now working which gives him some relief from back/hip pain. He complains of constipation. Says now that the flagyl is finished his nausea is better. he had not been able to eat much last few days because of the nausea. His appetite is better today. Did not have much output in the colostomy since monday. He is currently on bed rest x 3 weeks per plastic surgery. Objective Physical Examination General Exam: Positive: Alert, Cooperative, No Acute Distress Eye Exam: Positive: PERRLA, Conjunctiva & lids normal, EOMI; Negative: Sclera icteric ENT Exam: Positive: Atraumatic, Mucous membr. moist/pink, Pharynx Normal Neck Exam: Positive: Supple; Negative: thyromegaly Chest Exam: Positive: Clear to auscultation, Normal air movement Heart Exam: Positive: Rate Normal, Regular Rhythm, Normal S1, Normal S2; Negative: Murmurs, Rubs Telemetry: Positive: No significant arrhythmia Abdomen Exam: Positive: Normal bowel sounds, Soft, Other (functioning colostomy present and suprapubic cath present); Negative: Tenderness, Hepatospenomegaly Extremity Exam: Negative: Clubbing, Cyanosis, Edema Skin Exam: Positive: Nl turgor and temperature; Negative: Breakdown, Lesion Neuro Exam: Positive: Other (quadriplegic) Psych Exam: Positive: Mood NL, Oriented x 3 Assessment /Plan Assessment Pt is a 39 year old male with a history of traumatic quadriplegia, stage 4 sacral decubital ulcer, now reduced in stage to stage 4 ischial wound. He was admitted for an ischial flap closer of left ischial pressure ulcer by Dr. Khan. Wound culture positive for Escherichia coli and Streptococcus group G sensitive to ceftriaxone. Cefazolin was switched to ceftriaxone on 10/25/19. Also positive for Provotella melaninogenica - Flagyl added 10/28/2019 Stage 4 ischial pressure wound - s/p Excision of Left Ischial wound, irrigation and debridement, bone reduction Left ischium, posterior thigh fasciocutaneous flap closure of left ischial wound with application of EpiFix. - Dr Khan follows patient - Bed rest (x 3 weeks) with bed PT - finished ceftriaxone and flagyl. - Continued pain management with Percocet and Tramadol Traumatic Quadriplegia C5, C6 injury in 2004 -Muscle spasms due to history of C5 injury - continue Baclofen and Dantrolene Osteoporosis 2/2 [id number]: - currently bed rest with nursing position changes and bed PT per plastic surgeon MDD and Anxiety - Continue Hydroxyzine, Wellbutrin Chronic urinary retention - Patient has suprapubic catheter - continue Detrol La GERD - continue PPI, sucralfate Sciatica, right - Lidocaine patch to right hip - elevate HOB for some positional relief as discussed H/O Severe protein malnutrition in 2018 - improved with diverting colostomy and normal caloric intake Plan/VTE VTE Prophylaxis Ordered?: Yes (Lovenox SQ) VS,Fishbone, I+O VS, Fishbone, I+O Vital Signs Date Time Temp Pulse Resp B/P (MAP) Pulse Ox O2 Delivery O2 Flow Rate FiO2 11/03/19 10:17 20 11/03/19 06:00 97.9 72 120/72 (88) 95 Room Air I&O- Last 24 Hours up to 6 AM 11/03/19 06:00 Intake Total 1280 ml Output Total 2450 ml Balance -1170 ml CELESTINA SAINI MD Nov 03, 2019 11:59
[2019-11-03 14:00] VITALS: BP 119/71
[2019-11-03] MEDS: SENNA 8.6 MG TAB (SENOKOT) PO SCH (20:45)
[2019-11-03] MEDS: TERAZOSIN 5 MG CAP PO SCH (20:45)
[2019-11-04 06:00] VITALS: BP 128/62
[2019-11-04] MEDS: traMADol 50 MG TAB PO PRN ×2 (06:11→21:49)
[2019-11-04] MEDS: buPROPion **SR TABLET** (ZYBAN) 150MG PO SCH ×2 (09:06→21:48)
[2019-11-04] MEDS: DANTROLENE 25 MG CAP PO SCH ×2 (09:06→21:48)
[2019-11-04] MEDS: ASCORBIC ACID 500 MG TAB PO SCH (09:06)
[2019-11-04] MEDS: TOLTERODINE TARTRATE 2 MG LA CAP (DETROL LA) PO SCH (09:06)
[2019-11-04] MEDS: BACLOFEN 10 MG TAB PO SCH ×3 (09:07→21:48)
[2019-11-04] MEDS: OMEPRAZOLE 20 MG CAP PO SCH ×2 (09:07→21:48)
[2019-11-04] MEDS: SUCRALFATE 1 GM TAB PO SCH ×2 (09:07→21:48)
[2019-11-04] MEDS: BISACODYL 5 MG TAB PO SCH (09:07)
[2019-11-04] MEDS: ENOXAPARIN 40 MG/0.4 ML SYRINGE (J1650) SC SCH (09:07)
[2019-11-04] MEDS: PERCOCET 5MG/325MG TAB PO PRN ×2 (09:10→16:39)
[2019-11-04 14:00] VITALS: BP 121/69
--- NOTE | 2019-11-04 17:27 | IPNPDOC ---
Subjective General Date Seen: Nov 04, 2019 Subject Chief Complaint/History The patient is a 39-year-old male admitted with a reason for visit of Pressure Ulcer Left Buttock. S/p left posterior flap closure of the left ischium wound stage 4. POD 13. Doing well. No complains. Current Medications Current Medications Current Medications Medications (Trade) Dose Ordered Sig/Claudia Route PRN Reason Start Time Stop Time Status Last Admin Dose Admin Albuterol Sulfate (Proventil, Ventolin Hfa) 2 puff RQ6H PRN INH wheezing 10/22/19 12:15 Ascorbic Acid (Vitamin C) 500 mg DAILY PO 10/23/19 09:00 11/04/19 09:06 Baclofen (Lioresal) 20 mg TID PO 10/23/19 09:00 11/04/19 16:39 Bisacodyl (Dulcolax Tab) 5 mg DAILY PO 11/04/19 09:00 11/04/19 09:07 Bisacodyl (Dulcolax Tab) 5 mg DAILY PRN PO CONSTIPATION 10/22/19 12:15 11/03/19 11:35 DC 11/03/19 09:47 Bupropion HCl (Zyban, Wellbutrin Sr) 150 mg BID PO 10/22/19 21:00 11/04/19 09:06 Cefazolin Sodium 1 gm/Dextrose 50 ml @ 100 mls/hr Q8H IV 10/22/19 16:00 10/25/19 14:30 DC 10/25/19 08:28 Ceftriaxone Sodium 1 gm/ Dextrose 50 ml @ 100 mls/hr Q12H IV 10/25/19 16:00 10/30/19 08:50 DC 10/30/19 03:51 Ceftriaxone Sodium 2 gm/ Dextrose 50 ml @ 100 mls/hr Q24H IV 10/31/19 09:00 Cancel Dantrolene Sodium (Dantrium) 50 mg BID PO 10/22/19 21:00 11/04/19 09:06 Enoxaparin Sodium (Lovenox) 40 mg DAILY SC 10/23/19 09:00 11/04/19 09:07 Fentanyl Citrate (Sublimaze) 25 mcg Q5MP PRN IV PAIN LEVEL 5-10 10/22/19 11:00 10/22/19 12:00 DC Hydralazine HCl (Apresoline) 5 mg Q5M IV 10/22/19 12:45 10/22/19 16:55 DC 10/22/19 12:44 Hydromorphone HCl (Dilaudid) 0.2 mg Q5MP PRN IV PAIN LEVEL 4-7 10/22/19 11:00 10/22/19 11:24 DC 10/22/19 11:20 Hydromorphone HCl (Dilaudid) 0.2 mg Q5MP PRN IV PAIN LEVEL 4-7 10/22/19 14:30 10/22/19 15:30 DC 10/22/19 15:20 Hydroxyzine HCl (Atarax) 50 mg Q6HP PRN PO ANXIETY 10/22/19 12:15 10/29/19 21:05 Ketorolac Tromethamine (ToRADol) 10 mg Q6HP PRN PO MODERATE PAIN (PS 5-7) 10/22/19 11:00 10/22/19 10:50 DC Ketorolac Tromethamine (ToRADol) 10 mg Q6HP PRN PO MODERATE PAIN (PS 5-7) 10/22/19 16:00 10/27/19 15:59 DC 10/24/19 01:17 Ketorolac Tromethamine (ToRADol) 30 mg ONCE PRN IV PAIN 10/22/19 13:15 10/22/19 13:34 DC 10/22/19 10:17 Labetalol HCl (Normodyne, Trandate) 5 mg Q5M IV 10/22/19 12:45 10/22/19 16:56 DC 10/22/19 12:31 Lactated Ringer's 1,000 ml @ 100 mls/hr Q10H IV 10/22/19 11:00 10/22/19 12:00 DC 10/22/19 09:55 Lidocaine (Lidoderm Patch) 1 patch DAILY PRN TD MILD/MODERATE PAIN (PS 1-7) 10/28/19 09:00 Lidocaine (Lidoderm Patch) 2 patch DAILY PRN TD MODERATE/SEVERE PAIN (PS 5-10) 10/28/19 09:00 11/02/19 21:33 Metronidazole (Flagyl) 500 mg Q8H PO 10/28/19 14:00 10/31/19 10:25 DC 10/31/19 05:21 Miscellaneous (Unresolved Clarification Entry) SEE LABEL COMMENTS DAILY XX 11/03/19 09:00 11/03/19 11:55 DC Non-Formulary Medication ( See Comment Field Below ) REMOVE LIDODERM PATCH DAILY@21 XX 10/28/19 21:00 11/03/19 21:00 Omeprazole (PriLOSEC) 20 mg BID PO 10/22/19 21:00 11/04/19 09:07 Ondansetron HCl (ZOFRAN INJection) 4 mg Q4H PRN IV NAUSEA 10/22/19 11:00 10/30/19 14:53 Ondansetron HCl (ZOFRAN INJection) 4 mg Q4HP PRN IV NAUSEA OR VOMITING 10/22/19 11:00 10/22/19 12:00 DC 10/22/19 10:15 Ondansetron HCl (Zofran Odt) 4 mg Q4HP PRN PO NAUSEA OR VOMITING 10/30/19 22:00 11/01/19 14:54 Oxycodone/ Acetaminophen (Percocet 5mg/ 325mg Tablet) 1 tab ASDIRECTED PRN PO PAIN LEVEL 1-4 10/22/19 11:00 10/22/19 11:24 DC 10/22/19 11:00 Oxycodone/ Acetaminophen (Percocet 5mg/ 325mg Tablet) 1 tab Q4H PRN PO SEVERE PAIN (PS 8-10) 10/22/19 11:00 10/29/19 16:28 DC 10/29/19 14:45 Oxycodone/ Acetaminophen (Percocet 5mg/ 325mg Tablet) 2 tab Q6HP PRN PO SEVERE PAIN (PS 8-10) 10/29/19 16:30 11/04/19 16:39 Senna (Senokot) 2 tab QHS PO 11/03/19 21:00 11/03/19 20:45 Sucralfate (Carafate) 1 gm BID PO 10/22/19 21:00 11/04/19 09:07 Terazosin HCl (Hytrin) 5 mg DAILY@2100 PO 10/22/19 21:00 11/03/19 20:45 Tolterodine Tartrate (Detrol La) 4 mg DAILY PO 10/23/19 09:00 11/04/19 09:06 Tramadol HCl (Ultram) 50 mg Q6HP PRN PO MODERATE PAIN (PS 5-7) 10/23/19 12:00 11/04/19 06:11 Allergies Coded Allergies: morphine (Verified Adverse Reaction, Intermediate, nausea/vomiting, 10/22/19) Objective Physical Examination Examination GENERAL APPEARANCE:Patient seen, laying in bed, awake, alert, and oriented. Comfortable, in no acute distress. SKIN: Warm and moist. Left posterior thigh flap, viable. Sutures in place. LUNGS: Clear to auscultation bilaterally. No wheezing appreciated. HEART: No chest wall abnormalities. Regular rate and rhythm with no murmurs appreciated. ABDOMEN: Abdomen is soft, non-tender, non-distended. Colostomy functioning. EXTREMITIES: No edema identified. No calf tenderness. Vital Signs Vital Signs Date Time Temp Pulse Resp B/P (MAP) Pulse Ox O2 Delivery O2 Flow Rate FiO2 11/04/19 16:39 18 Room Air 11/04/19 14:00 98.4 77 121/69 (86) 93 I&Os l I&O- Last 24 Hours up to 6 AM 11/04/19 06:00 Intake Total 2120 ml Output Total 2250 ml Balance -130 ml Impression S/p Left posterior flap to ischial wound stage 4. POD 13 Continue with bedrest until day 21. Plan for acute rehab evaluation at the end of the week. Plan to take out sutures end of the week. Improving, healing expectantly. Plan / VTE VTE Prophylaxis Ordered?: Yes (Lovenox SQ) ARDHA ALTMAN DO Nov 04, 2019 17:27
[2019-11-04] MEDS: SENNA 8.6 MG TAB (SENOKOT) PO SCH (21:00)
[2019-11-04] MEDS: TERAZOSIN 5 MG CAP PO SCH (21:49)
[2019-11-05] MEDS: PERCOCET 5MG/325MG TAB PO PRN ×3 (05:51→21:40)
[2019-11-05 06:33] VITALS: BP 118/74
[2019-11-05] MEDS: traMADol 50 MG TAB PO PRN ×2 (08:30→16:26)
[2019-11-05] MEDS: buPROPion **SR TABLET** (ZYBAN) 150MG PO SCH ×2 (09:04→21:39)
[2019-11-05] MEDS: SUCRALFATE 1 GM TAB PO SCH ×2 (09:05→21:39)
[2019-11-05] MEDS: BISACODYL 5 MG TAB PO SCH (09:05)
[2019-11-05] MEDS: TOLTERODINE TARTRATE 2 MG LA CAP (DETROL LA) PO SCH (09:05)
[2019-11-05] MEDS: BACLOFEN 10 MG TAB PO SCH ×3 (09:05→21:40)
[2019-11-05] MEDS: ASCORBIC ACID 500 MG TAB PO SCH (09:05)
[2019-11-05] MEDS: OMEPRAZOLE 20 MG CAP PO SCH ×2 (09:05→21:39)
[2019-11-05] MEDS: ENOXAPARIN 40 MG/0.4 ML SYRINGE (J1650) SC SCH (09:06)
[2019-11-05] MEDS: DANTROLENE 25 MG CAP PO SCH ×2 (09:06→21:40)
[2019-11-05 09:30] VITALS: BP 120/70
[2019-11-05 13:23] VITALS: BP 120/79
[2019-11-05] MEDS: SENNA 8.6 MG TAB (SENOKOT) PO SCH (21:40)
[2019-11-05] MEDS: TERAZOSIN 5 MG CAP PO SCH (21:41)
[2019-11-06] MEDS: PERCOCET 5MG/325MG TAB PO PRN ×3 (05:35→21:45)
[2019-11-06 05:41] VITALS: BP 113/64
[2019-11-06 08:30] VITALS: BP 112/65
[2019-11-06] MEDS: TOLTERODINE TARTRATE 2 MG LA CAP (DETROL LA) PO SCH (09:53)
[2019-11-06] MEDS: buPROPion **SR TABLET** (ZYBAN) 150MG PO SCH ×2 (09:54→21:45)
[2019-11-06] MEDS: DANTROLENE 25 MG CAP PO SCH ×2 (09:54→21:45)
[2019-11-06] MEDS: BISACODYL 5 MG TAB PO SCH (09:55)
[2019-11-06] MEDS: SUCRALFATE 1 GM TAB PO SCH ×2 (09:55→21:48)
[2019-11-06] MEDS: OMEPRAZOLE 20 MG CAP PO SCH ×2 (09:56→21:48)
[2019-11-06] MEDS: BACLOFEN 10 MG TAB PO SCH ×3 (09:56→21:45)
[2019-11-06] MEDS: ENOXAPARIN 40 MG/0.4 ML SYRINGE (J1650) SC SCH (09:58)
[2019-11-06] MEDS: ASCORBIC ACID 500 MG TAB PO SCH (10:18)
--- NOTE | 2019-11-06 13:46 | IPNPDOC ---
Subjective General Date Seen: Nov 06, 2019 Subject Chief Complaint/History The patient is a 39-year-old male admitted with a reason for visit of Pressure Ulcer Left Buttock. S/p Left ischial wound debridement, Left lateral based posterior flap closure POD 14. Doing well. No complains. Current Medications Current Medications Current Medications Medications (Trade) Dose Ordered Sig/Claudia Route PRN Reason Start Time Stop Time Status Last Admin Dose Admin Albuterol Sulfate (Proventil, Ventolin Hfa) 2 puff RQ6H PRN INH wheezing 10/22/19 12:15 Ascorbic Acid (Vitamin C) 500 mg DAILY PO 10/23/19 09:00 11/06/19 10:18 Baclofen (Lioresal) 20 mg TID PO 10/23/19 09:00 11/06/19 09:56 Bisacodyl (Dulcolax Tab) 5 mg DAILY PO 11/04/19 09:00 11/06/19 09:55 Bisacodyl (Dulcolax Tab) 5 mg DAILY PRN PO CONSTIPATION 10/22/19 12:15 11/03/19 11:35 DC 11/03/19 09:47 Bupropion HCl (Zyban, Wellbutrin Sr) 150 mg BID PO 10/22/19 21:00 11/06/19 09:54 Cefazolin Sodium 1 gm/Dextrose 50 ml @ 100 mls/hr Q8H IV 10/22/19 16:00 10/25/19 14:30 DC 10/25/19 08:28 Ceftriaxone Sodium 1 gm/ Dextrose 50 ml @ 100 mls/hr Q12H IV 10/25/19 16:00 10/30/19 08:50 DC 10/30/19 03:51 Ceftriaxone Sodium 2 gm/ Dextrose 50 ml @ 100 mls/hr Q24H IV 10/31/19 09:00 Cancel Dantrolene Sodium (Dantrium) 50 mg BID PO 10/22/19 21:00 11/06/19 09:54 Enoxaparin Sodium (Lovenox) 40 mg DAILY SC 10/23/19 09:00 11/06/19 09:58 Fentanyl Citrate (Sublimaze) 25 mcg Q5MP PRN IV PAIN LEVEL 5-10 10/22/19 11:00 10/22/19 12:00 DC Hydralazine HCl (Apresoline) 5 mg Q5M IV 10/22/19 12:45 10/22/19 16:55 DC 10/22/19 12:44 Hydromorphone HCl (Dilaudid) 0.2 mg Q5MP PRN IV PAIN LEVEL 4-7 10/22/19 11:00 10/22/19 11:24 DC 10/22/19 11:20 Hydromorphone HCl (Dilaudid) 0.2 mg Q5MP PRN IV PAIN LEVEL 4-7 10/22/19 14:30 10/22/19 15:30 DC 10/22/19 15:20 Hydroxyzine HCl (Atarax) 50 mg Q6HP PRN PO ANXIETY 10/22/19 12:15 10/29/19 21:05 Ketorolac Tromethamine (ToRADol) 10 mg Q6HP PRN PO MODERATE PAIN (PS 5-7) 10/22/19 11:00 10/22/19 10:50 DC Ketorolac Tromethamine (ToRADol) 10 mg Q6HP PRN PO MODERATE PAIN (PS 5-7) 10/22/19 16:00 10/27/19 15:59 DC 10/24/19 01:17 Ketorolac Tromethamine (ToRADol) 30 mg ONCE PRN IV PAIN 10/22/19 13:15 10/22/19 13:34 DC 10/22/19 10:17 Labetalol HCl (Normodyne, Trandate) 5 mg Q5M IV 10/22/19 12:45 10/22/19 16:56 DC 10/22/19 12:31 Lactated Ringer's 1,000 ml @ 100 mls/hr Q10H IV 10/22/19 11:00 10/22/19 12:00 DC 10/22/19 09:55 Lidocaine (Lidoderm Patch) 1 patch DAILY PRN TD MILD/MODERATE PAIN (PS 1-7) 10/28/19 09:00 Lidocaine (Lidoderm Patch) 2 patch DAILY PRN TD MODERATE/SEVERE PAIN (PS 5-10) 10/28/19 09:00 11/02/19 21:33 Metronidazole (Flagyl) 500 mg Q8H PO 10/28/19 14:00 10/31/19 10:25 DC 10/31/19 05:21 Miscellaneous (Unresolved Clarification Entry) SEE LABEL COMMENTS DAILY XX 11/03/19 09:00 11/03/19 11:55 DC Non-Formulary Medication ( See Comment Field Below ) REMOVE LIDODERM PATCH DAILY@21 XX 10/28/19 21:00 11/03/19 21:00 Omeprazole (PriLOSEC) 20 mg BID PO 10/22/19 21:00 11/06/19 09:56 Ondansetron HCl (ZOFRAN INJection) 4 mg Q4H PRN IV NAUSEA 10/22/19 11:00 10/30/19 14:53 Ondansetron HCl (ZOFRAN INJection) 4 mg Q4HP PRN IV NAUSEA OR VOMITING 10/22/19 11:00 10/22/19 12:00 DC 10/22/19 10:15 Ondansetron HCl (Zofran Odt) 4 mg Q4HP PRN PO NAUSEA OR VOMITING 10/30/19 22:00 11/01/19 14:54 Oxycodone/ Acetaminophen (Percocet 5mg/ 325mg Tablet) 1 tab ASDIRECTED PRN PO PAIN LEVEL 1-4 10/22/19 11:00 10/22/19 11:24 DC 10/22/19 11:00 Oxycodone/ Acetaminophen (Percocet 5mg/ 325mg Tablet) 1 tab Q4H PRN PO SEVERE PAIN (PS 8-10) 10/22/19 11:00 10/29/19 16:28 DC 10/29/19 14:45 Oxycodone/ Acetaminophen (Percocet 5mg/ 325mg Tablet) 2 tab Q6HP PRN PO SEVERE PAIN (PS 8-10) 10/29/19 16:30 11/06/19 05:35 Senna (Senokot) 2 tab QHS PO 11/03/19 21:00 11/05/19 21:40 Sucralfate (Carafate) 1 gm BID PO 10/22/19 21:00 11/06/19 09:55 Terazosin HCl (Hytrin) 5 mg DAILY@2100 PO 10/22/19 21:00 11/05/19 21:41 Tolterodine Tartrate (Detrol La) 4 mg DAILY PO 10/23/19 09:00 11/06/19 09:53 Tramadol HCl (Ultram) 50 mg Q6HP PRN PO MODERATE PAIN (PS 5-7) 10/23/19 12:00 11/05/19 16:26 Allergies Coded Allergies: morphine (Verified Adverse Reaction, Intermediate, nausea/vomiting, 10/22/19) Objective Physical Examination Examination GENERAL APPEARANCE:Patient seen, laying in bed, awake, alert, and oriented. Comfortable, in no acute distress. SKIN: Warm and moist. Left posterior thigh incision intact. Flap viable, pink, warm. LUNGS: Clear to auscultation bilaterally. No wheezing appreciated. HEART: No chest wall abnormalities. Regular rate and rhythm with no murmurs appreciated. ABDOMEN: Abdomen is soft, non-tender, non-distended. EXTREMITIES: No edema identified. No calf tenderness. Vital Signs Vital Signs Date Time Temp Pulse Resp B/P (MAP) Pulse Ox O2 Delivery O2 Flow Rate FiO2 11/06/19 08:30 97.6 79 16 112/65 (81) 98 Room Air I&Os I&O- Last 24 Hours up to 6 AM 11/06/19 06:00 Intake Total 1610 ml Output Total 1600 ml Balance 10 ml Impression Left ischium wound stage 4 S/p flap closure POD 14. Dressing changed today. Continue with off loading. Plan to remove Nylon sutures tomorrow. healing well Continue with bedrest until day 21. Evaluation from PT for returning for base function after bedrest is suspended next week. Plan / VTE VTE Prophylaxis Ordered?: Yes (Lovenox SQ) RADHA ALTMAN DO Nov 06, 2019 13:46
[2019-11-06] MEDS: SENNA 8.6 MG TAB (SENOKOT) PO SCH (21:48)
[2019-11-06] MEDS: TERAZOSIN 5 MG CAP PO SCH (21:48)
[2019-11-07 06:41] VITALS: BP 119/78
[2019-11-07] MEDS: traMADol 50 MG TAB PO PRN ×2 (06:44→09:25)
[2019-11-07] MEDS: TOLTERODINE TARTRATE 2 MG LA CAP (DETROL LA) PO SCH (09:02)
[2019-11-07] MEDS: buPROPion **SR TABLET** (ZYBAN) 150MG PO SCH ×2 (09:02→22:41)
[2019-11-07] MEDS: OMEPRAZOLE 20 MG CAP PO SCH ×2 (09:03→22:45)
[2019-11-07] MEDS: BISACODYL 5 MG TAB PO SCH (09:03)
[2019-11-07] MEDS: BACLOFEN 10 MG TAB PO SCH ×3 (09:03→22:45)
[2019-11-07] MEDS: ASCORBIC ACID 500 MG TAB PO SCH (09:04)
[2019-11-07] MEDS: SUCRALFATE 1 GM TAB PO SCH ×2 (09:04→22:45)
[2019-11-07] MEDS: ENOXAPARIN 40 MG/0.4 ML SYRINGE (J1650) SC SCH (09:11)
[2019-11-07] MEDS: DANTROLENE 25 MG CAP PO SCH ×2 (09:25→22:42)
[2019-11-07 10:12] VITALS: BP 120/69
[2019-11-07] MEDS: hydrOXYzine 50 MG TAB PO PRN (13:42)
[2019-11-07] MEDS: PERCOCET 5MG/325MG TAB PO PRN ×2 (13:42→22:45)
--- NOTE | 2019-11-07 14:13 | IPNPDOC ---
Subjective General Date Seen: Nov 07, 2019 Subject Chief Complaint/History The patient is a 39-year-old male admitted with a reason for visit of Pressure Ulcer Left Buttock. Left ischial wound stage 4 S/p debridement, left posterior thigh flap coverage POD 16 Doing well. Patient states he has intermittent anxiety. He wanders if antianxiety meds could be prescribed. Current Medications Current Medications Current Medications Medications (Trade) Dose Ordered Sig/Claudia Route PRN Reason Start Time Stop Time Status Last Admin Dose Admin Albuterol Sulfate (Proventil, Ventolin Hfa) 2 puff RQ6H PRN INH wheezing 10/22/19 12:15 Ascorbic Acid (Vitamin C) 500 mg DAILY PO 10/23/19 09:00 11/07/19 09:04 Baclofen (Lioresal) 20 mg TID PO 10/23/19 09:00 11/07/19 09:03 Bisacodyl (Dulcolax Tab) 5 mg DAILY PO 11/04/19 09:00 11/07/19 09:03 Bisacodyl (Dulcolax Tab) 5 mg DAILY PRN PO CONSTIPATION 10/22/19 12:15 11/03/19 11:35 DC 11/03/19 09:47 Bupropion HCl (Zyban, Wellbutrin Sr) 150 mg BID PO 10/22/19 21:00 11/07/19 09:02 Cefazolin Sodium 1 gm/Dextrose 50 ml @ 100 mls/hr Q8H IV 10/22/19 16:00 10/25/19 14:30 DC 10/25/19 08:28 Ceftriaxone Sodium 1 gm/ Dextrose 50 ml @ 100 mls/hr Q12H IV 10/25/19 16:00 10/30/19 08:50 DC 10/30/19 03:51 Ceftriaxone Sodium 2 gm/ Dextrose 50 ml @ 100 mls/hr Q24H IV 10/31/19 09:00 Cancel Dantrolene Sodium (Dantrium) 50 mg BID PO 10/22/19 21:00 11/07/19 09:25 Enoxaparin Sodium (Lovenox) 40 mg DAILY SC 10/23/19 09:00 11/07/19 09:11 Fentanyl Citrate (Sublimaze) 25 mcg Q5MP PRN IV PAIN LEVEL 5-10 10/22/19 11:00 10/22/19 12:00 DC Hydralazine HCl (Apresoline) 5 mg Q5M IV 10/22/19 12:45 10/22/19 16:55 DC 10/22/19 12:44 Hydromorphone HCl (Dilaudid) 0.2 mg Q5MP PRN IV PAIN LEVEL 4-7 10/22/19 11:00 10/22/19 11:24 DC 10/22/19 11:20 Hydromorphone HCl (Dilaudid) 0.2 mg Q5MP PRN IV PAIN LEVEL 4-7 10/22/19 14:30 10/22/19 15:30 DC 10/22/19 15:20 Hydroxyzine HCl (Atarax) 50 mg Q6HP PRN PO ANXIETY 10/22/19 12:15 11/07/19 13:42 Ketorolac Tromethamine (ToRADol) 10 mg Q6HP PRN PO MODERATE PAIN (PS 5-7) 10/22/19 11:00 10/22/19 10:50 DC Ketorolac Tromethamine (ToRADol) 10 mg Q6HP PRN PO MODERATE PAIN (PS 5-7) 10/22/19 16:00 10/27/19 15:59 DC 10/24/19 01:17 Ketorolac Tromethamine (ToRADol) 30 mg ONCE PRN IV PAIN 10/22/19 13:15 10/22/19 13:34 DC 10/22/19 10:17 Labetalol HCl (Normodyne, Trandate) 5 mg Q5M IV 10/22/19 12:45 10/22/19 16:56 DC 10/22/19 12:31 Lactated Ringer's 1,000 ml @ 100 mls/hr Q10H IV 10/22/19 11:00 10/22/19 12:00 DC 10/22/19 09:55 Lidocaine (Lidoderm Patch) 1 patch DAILY PRN TD MILD/MODERATE PAIN (PS 1-7) 10/28/19 09:00 Lidocaine (Lidoderm Patch) 2 patch DAILY PRN TD MODERATE/SEVERE PAIN (PS 5-10) 10/28/19 09:00 11/02/19 21:33 Metronidazole (Flagyl) 500 mg Q8H PO 10/28/19 14:00 10/31/19 10:25 DC 10/31/19 05:21 Miscellaneous (Unresolved Clarification Entry) SEE LABEL COMMENTS DAILY XX 11/03/19 09:00 11/03/19 11:55 DC Non-Formulary Medication ( See Comment Field Below ) REMOVE LIDODERM PATCH DAILY@21 XX 10/28/19 21:00 11/06/19 21:48 Omeprazole (PriLOSEC) 20 mg BID PO 10/22/19 21:00 11/07/19 09:03 Ondansetron HCl (ZOFRAN INJection) 4 mg Q4H PRN IV NAUSEA 10/22/19 11:00 10/30/19 14:53 Ondansetron HCl (ZOFRAN INJection) 4 mg Q4HP PRN IV NAUSEA OR VOMITING 10/22/19 11:00 10/22/19 12:00 DC 10/22/19 10:15 Ondansetron HCl (Zofran Odt) 4 mg Q4HP PRN PO NAUSEA OR VOMITING 10/30/19 22:00 11/01/19 14:54 Oxycodone/ Acetaminophen (Percocet 5mg/ 325mg Tablet) 1 tab ASDIRECTED PRN PO PAIN LEVEL 1-4 10/22/19 11:00 10/22/19 11:24 DC 10/22/19 11:00 Oxycodone/ Acetaminophen (Percocet 5mg/ 325mg Tablet) 1 tab Q4H PRN PO SEVERE PAIN (PS 8-10) 10/22/19 11:00 10/29/19 16:28 DC 10/29/19 14:45 Oxycodone/ Acetaminophen (Percocet 5mg/ 325mg Tablet) 2 tab Q6HP PRN PO SEVERE PAIN (PS 8-10) 10/29/19 16:30 11/07/19 13:42 Senna (Senokot) 2 tab QHS PO 11/03/19 21:00 11/06/19 21:48 Sucralfate (Carafate) 1 gm BID PO 10/22/19 21:00 11/07/19 09:04 Terazosin HCl (Hytrin) 5 mg DAILY@2100 PO 10/22/19 21:00 11/06/19 21:48 Tolterodine Tartrate (Detrol La) 4 mg DAILY PO 10/23/19 09:00 11/07/19 09:02 Tramadol HCl (Ultram) 50 mg Q6HP PRN PO MODERATE PAIN (PS 5-7) 10/23/19 12:00 11/07/19 09:25 Allergies Coded Allergies: morphine (Verified Adverse Reaction, Intermediate, nausea/vomiting, 10/22/19) Objective Physical Examination Examination GENERAL APPEARANCE:Patient seen, laying in bed, awake, alert, and oriented. Comfortable, in no acute distress. SKIN: Warm and moist. Flap viable, pink, warm. Healing well. Sutures in place. LUNGS: Clear to auscultation bilaterally. No wheezing appreciated. HEART: No chest wall abnormalities. Regular rate and rhythm with no murmurs appreciated. ABDOMEN: Abdomen is soft, non-tender, non-distended. Incision intact. Working colostomy. EXTREMITIES: No edema identified. No calf tenderness. Vital Signs Vital Signs Date Time Temp Pulse Resp B/P (MAP) Pulse Ox O2 Delivery O2 Flow Rate FiO2 11/07/19 14:04 14 Room Air 11/07/19 10:12 73 120/69 (86) 98 11/07/19 06:41 97.9 I&Os I&O- Last 24 Hours up to 6 AM 11/07/19 06:00 Intake Total 570 ml Output Total 1900 ml Balance -1330 ml Impression Sutures removed today. Steri strips in place, protective dressing. Ok with antianxiety meds, per medical team. Plan to remain on bedrest until POD 21 (november 11) Plan / VTE VTE Prophylaxis Ordered?: Yes (Lovenox SQ) RADHA ALTMAN DO Nov 07, 2019 14:13
[2019-11-07] MEDS: SENNA 8.6 MG TAB (SENOKOT) PO SCH (21:00)
[2019-11-07] MEDS: TERAZOSIN 5 MG CAP PO SCH (22:44)
[2019-11-08] MEDS: traMADol 50 MG TAB PO PRN (01:15)
[2019-11-08] MEDS: PERCOCET 5MG/325MG TAB PO PRN ×3 (06:58→22:27)
[2019-11-08 07:02] VITALS: BP 115/69
[2019-11-08] MEDS: BISACODYL 5 MG TAB PO SCH (09:00)
[2019-11-08] MEDS: buPROPion **SR TABLET** (ZYBAN) 150MG PO SCH ×2 (09:31→22:22)
[2019-11-08] MEDS: TOLTERODINE TARTRATE 2 MG LA CAP (DETROL LA) PO SCH (09:32)
[2019-11-08] MEDS: OMEPRAZOLE 20 MG CAP PO SCH ×2 (09:32→22:22)
[2019-11-08] MEDS: DANTROLENE 25 MG CAP PO SCH ×2 (09:33→22:23)
[2019-11-08] MEDS: BACLOFEN 10 MG TAB PO SCH ×3 (09:33→22:22)
[2019-11-08] MEDS: SUCRALFATE 1 GM TAB PO SCH ×2 (09:34→22:23)
[2019-11-08] MEDS: ASCORBIC ACID 500 MG TAB PO SCH (09:34)
[2019-11-08] MEDS: ENOXAPARIN 40 MG/0.4 ML SYRINGE (J1650) SC SCH (09:39)
[2019-11-08] MEDS: hydrOXYzine 50 MG TAB PO PRN ×2 (16:08→22:32)
[2019-11-08] MEDS: SENNA 8.6 MG TAB (SENOKOT) PO SCH (22:23)
[2019-11-08] MEDS: TERAZOSIN 5 MG CAP PO SCH (22:26)
[2019-11-09 06:00] VITALS: BP 117/72
[2019-11-09] MEDS: TOLTERODINE TARTRATE 2 MG LA CAP (DETROL LA) PO SCH (08:38)
[2019-11-09] MEDS: buPROPion **SR TABLET** (ZYBAN) 150MG PO SCH ×2 (08:38→21:37)
[2019-11-09] MEDS: BACLOFEN 10 MG TAB PO SCH ×3 (08:39→21:37)
[2019-11-09] MEDS: BISACODYL 5 MG TAB PO SCH (08:39)
[2019-11-09] MEDS: OMEPRAZOLE 20 MG CAP PO SCH ×2 (08:39→21:37)
[2019-11-09] MEDS: ASCORBIC ACID 500 MG TAB PO SCH (08:39)
[2019-11-09] MEDS: DANTROLENE 25 MG CAP PO SCH ×2 (08:39→21:37)
[2019-11-09] MEDS: SUCRALFATE 1 GM TAB PO SCH ×2 (08:40→21:37)
[2019-11-09] MEDS: ENOXAPARIN 40 MG/0.4 ML SYRINGE (J1650) SC SCH (08:45)
[2019-11-09 08:57] VITALS: BP 117/71
[2019-11-09 08:59] VITALS: BP 117/71
[2019-11-09] MEDS: PERCOCET 5MG/325MG TAB PO PRN ×2 (10:06→17:15)
[2019-11-09] MEDS: hydrOXYzine 50 MG TAB PO PRN ×2 (14:03→21:38)
[2019-11-09] MEDS: SENNA 8.6 MG TAB (SENOKOT) PO SCH (21:37)
[2019-11-09] MEDS: TERAZOSIN 5 MG CAP PO SCH (21:37)
[2019-11-09] MEDS: traMADol 50 MG TAB PO PRN (21:38)
[2019-11-10 06:00] VITALS: BP 128/78
[2019-11-10] MEDS: hydrOXYzine 50 MG TAB PO PRN ×3 (06:25→20:52)
[2019-11-10] MEDS: PERCOCET 5MG/325MG TAB PO PRN ×3 (06:26→20:50)
[2019-11-10] MEDS: ENOXAPARIN 40 MG/0.4 ML SYRINGE (J1650) SC SCH (08:47)
[2019-11-10] MEDS: SUCRALFATE 1 GM TAB PO SCH ×2 (08:47→20:51)
[2019-11-10] MEDS: OMEPRAZOLE 20 MG CAP PO SCH ×2 (08:47→20:50)
[2019-11-10] MEDS: buPROPion **SR TABLET** (ZYBAN) 150MG PO SCH ×2 (09:39→20:49)
[2019-11-10] MEDS: TOLTERODINE TARTRATE 2 MG LA CAP (DETROL LA) PO SCH (09:39)
[2019-11-10] MEDS: BACLOFEN 10 MG TAB PO SCH ×3 (09:39→20:52)
[2019-11-10] MEDS: ASCORBIC ACID 500 MG TAB PO SCH (09:40)
[2019-11-10] MEDS: DANTROLENE 25 MG CAP PO SCH ×2 (09:40→20:49)
[2019-11-10] MEDS: BISACODYL 5 MG TAB PO SCH (09:40)
--- NOTE | 2019-11-10 11:31 | IPNPDOC ---
Subjective Date Seen The patient was seen on 11/10/19. Subjective Chief Complaint/HPI Kina is comfortable. No complaints, plastic surgery follow-up appreciated General: Denies: ROS Unobtainable, Chills, Night Sweats, Fatigue, Malaise, Normal Appetite, Other Symptoms Constitutional: Denies: Chills, Fever, Malaise, Night Sweats, Weakness, Fatigue, Weight Loss, Lethargy, Other Skin: Denies: Rash, Lesions, Jaundice, Bruising, Itching, Dry, Breakdown, Nail Changes, Other Pulmonary: Denies: Dyspnea, Cough, Pleuritic Chest Pain, Other Symptoms Cardiovascular: Denies: Chest Pain, Palpitations, Orthopnea, Paroxysmal Noc. Dyspnea, Edema, Lt Headedness, Other Symptoms Gastrointestinal: Denies: Nausea, Vomiting, Abdominal Pain, Diarrhea, Constipation, Melena, Hematochezia, Other Symptoms Musculoskeletal: Denies: Neck Pain, Back Pain, Shoulder Pain, Arm Pain, Hand Pain, Leg Pain, Foot Pain, Joint Pain, Muscle Pain, Spasms, Other Symptoms Neurological: Denies: Weakness, Numbness, Incoordination, Change in speech, Confusion, Seizures, Other Symptoms Objective Physical Examination General Exam: Positive: Alert, Cooperative, No Acute Distress Eye Exam: Positive: PERRLA, Conjunctiva & lids normal, EOMI; Negative: Sclera icteric ENT Exam: Positive: Atraumatic, Mucous membr. moist/pink, Pharynx Normal Neck Exam: Positive: Supple; Negative: thyromegaly Chest Exam: Positive: Clear to auscultation, Normal air movement Heart Exam: Positive: Rate Normal, Regular Rhythm, Normal S1, Normal S2; Negative: Murmurs, Rubs Telemetry: Positive: No significant arrhythmia Abdomen Exam: Positive: Normal bowel sounds, Soft, Other (colostomy present and suprapubic cath present); Negative: Tenderness, Hepatospenomegaly Extremity Exam: Negative: Clubbing, Cyanosis, Edema Skin Exam: Positive: Nl turgor and temperature; Negative: Breakdown, Lesion Neuro Exam: Positive: Other (quadriplegic) Psych Exam: Positive: Mood NL, Oriented x 3 Assessment /Plan Plan/VTE VTE Prophylaxis Ordered?: Yes (Lovenox SQ) Plan Pt is a 39 year old male with a history of traumatic quadriplegia, stage 4 s acral decubital ulcer, now reduced in stage to stage 4 ischial wound. He was admitted for an ischial flap closer of left ischial pressure ulcer by Dr. Khan. Wound culture positive for Escherichia coli and Streptococcus group G sensitive to ceftriaxone. Cefazolin was switched to ceftriaxone on 10/25/19. Also positive for Provotella melaninogenica - Flagyl added 10/28/2019 Stage 4 ischial pressure wound s/p Excision of Left Ischial wound, irrigation and debridement, bone reduction Left ischium, posterior thigh fasciocutaneous flap closure of left ischial wound with application of EpiFix. Dr Khan follow-up appreciated Bed rest (x 3 weeks) with bed PT finished ceftriaxone and flagyl. Continued pain management with Percocet and Tramadol Awaiting placement Traumatic Quadriplegia C5, C6 injury in 2004 Muscle spasms due to history of C5 injury continue Baclofen and Dantrolene Osteoporosis / [id number]: currently bed rest with nursing position changes and bed PT per plastic surgeon MDD and Anxiety Continue Hydroxyzine, Wellbutrin Chronic urinary retention Patient has suprapubic catheter continue Detrol La GERD continue PPI, sucralfate Sciatica, right Lidocaine patch to right hip elevate HOB for some positional relief as discussed H/O Severe protein malnutrition in 2019 improved with diverting colostomy and normal caloric intake Plan/VTE VTE Prophylaxis Ordered?: Yes (Lovenox SQ) VS, I&O, 24H, Fishbone Vital Signs/I&O Vital Signs Date Time Temp Pulse Resp B/P (MAP) Pulse Ox O2 Delivery O2 Flow Rate FiO2 11/10/19 06:56 18 Room Air 11/10/19 06:00 98.4 91 128/78 (95) 98 I&O- Last 24 Hours up to 6 AM 11/10/19 06:00 Intake Total 1380 ml Output Total 600 ml Balance 780 ml DOLLY JOY MD Nov 10, 2019 11:31
--- NOTE | 2019-11-10 12:28 | IPNPDOC ---
Subjective General Date Seen: Nov 10, 2019 Subject Chief Complaint/History The patient is a 39-year-old male admitted with a reason for visit of Pressure Ulcer Left Buttock. Patient is s/p Left ischium stage 4 wound debridement and posterior lateral thigh flap closure POD 19. Doing well. Compliant with turning and positioning. Current Medications Current Medications Current Medications Medications (Trade) Dose Ordered Sig/Claudia Route PRN Reason Start Time Stop Time Status Last Admin Dose Admin Albuterol Sulfate (Proventil, Ventolin Hfa) 2 puff RQ6H PRN INH wheezing 10/22/19 12:15 Ascorbic Acid (Vitamin C) 500 mg DAILY PO 10/23/19 09:00 11/10/19 09:40 Baclofen (Lioresal) 20 mg TID PO 10/23/19 09:00 11/10/19 09:39 Bisacodyl (Dulcolax Tab) 5 mg DAILY PO 11/04/19 09:00 11/10/19 09:40 Bisacodyl (Dulcolax Tab) 5 mg DAILY PRN PO CONSTIPATION 10/22/19 12:15 11/03/19 11:35 DC 11/03/19 09:47 Bupropion HCl (Zyban, Wellbutrin Sr) 150 mg BID PO 10/22/19 21:00 11/10/19 09:39 Cefazolin Sodium 1 gm/Dextrose 50 ml @ 100 mls/hr Q8H IV 10/22/19 16:00 10/25/19 14:30 DC 10/25/19 08:28 Ceftriaxone Sodium 1 gm/ Dextrose 50 ml @ 100 mls/hr Q12H IV 10/25/19 16:00 10/30/19 08:50 DC 10/30/19 03:51 Ceftriaxone Sodium 2 gm/ Dextrose 50 ml @ 100 mls/hr Q24H IV 10/31/19 09:00 Cancel Dantrolene Sodium (Dantrium) 50 mg BID PO 10/22/19 21:00 11/10/19 09:40 Enoxaparin Sodium (Lovenox) 40 mg DAILY SC 10/23/19 09:00 11/10/19 08:47 Fentanyl Citrate (Sublimaze) 25 mcg Q5MP PRN IV PAIN LEVEL 5-10 10/22/19 11:00 10/22/19 12:00 DC Hydralazine HCl (Apresoline) 5 mg Q5M IV 10/22/19 12:45 10/22/19 16:55 DC 10/22/19 12:44 Hydromorphone HCl (Dilaudid) 0.2 mg Q5MP PRN IV PAIN LEVEL 4-7 10/22/19 11:00 10/22/19 11:24 DC 10/22/19 11:20 Hydromorphone HCl (Dilaudid) 0.2 mg Q5MP PRN IV PAIN LEVEL 4-7 10/22/19 14:30 10/22/19 15:30 DC 10/22/19 15:20 Hydroxyzine HCl (Atarax) 50 mg Q6HP PRN PO ANXIETY 10/22/19 12:15 11/10/19 06:25 Ketorolac Tromethamine (ToRADol) 10 mg Q6HP PRN PO MODERATE PAIN (PS 5-7) 10/22/19 11:00 10/22/19 10:50 DC Ketorolac Tromethamine (ToRADol) 10 mg Q6HP PRN PO MODERATE PAIN (PS 5-7) 10/22/19 16:00 10/27/19 15:59 DC 10/24/19 01:17 Ketorolac Tromethamine (ToRADol) 30 mg ONCE PRN IV PAIN 10/22/19 13:15 10/22/19 13:34 DC 10/22/19 10:17 Labetalol HCl (Normodyne, Trandate) 5 mg Q5M IV 10/22/19 12:45 10/22/19 16:56 DC 10/22/19 12:31 Lactated Ringer's 1,000 ml @ 100 mls/hr Q10H IV 10/22/19 11:00 10/22/19 12:00 DC 10/22/19 09:55 Lidocaine (Lidoderm Patch) 1 patch DAILY PRN TD MILD/MODERATE PAIN (PS 1-7) 10/28/19 09:00 Lidocaine (Lidoderm Patch) 2 patch DAILY PRN TD MODERATE/SEVERE PAIN (PS 5-10) 10/28/19 09:00 11/02/19 21:33 Metronidazole (Flagyl) 500 mg Q8H PO 10/28/19 14:00 10/31/19 10:25 DC 10/31/19 05:21 Miscellaneous (Unresolved Clarification Entry) SEE LABEL COMMENTS DAILY XX 11/03/19 09:00 11/03/19 11:55 DC Miscellaneous (Unresolved Clarification Entry) SEE LABEL COMMENTS DAILY XX 11/09/19 09:00 11/09/19 17:40 DC 11/09/19 11:49 Miscellaneous (Unresolved Clarification Entry) SEE LABEL COMMENTS DAILY XX 11/09/19 09:00 11/09/19 18:27 DC Non-Formulary Medication ( See Comment Field Below ) REMOVE LIDODERM PATCH DAILY@21 XX 10/28/19 21:00 11/08/19 22:23 Omeprazole (PriLOSEC) 20 mg BID PO 10/22/19 21:00 11/10/19 08:47 Ondansetron HCl (ZOFRAN INJection) 4 mg Q4H PRN IV NAUSEA 10/22/19 11:00 10/30/19 14:53 Ondansetron HCl (ZOFRAN INJection) 4 mg Q4HP PRN IV NAUSEA OR VOMITING 10/22/19 11:00 10/22/19 12:00 DC 10/22/19 10:15 Ondansetron HCl (Zofran Odt) 4 mg Q4HP PRN PO NAUSEA OR VOMITING 10/30/19 22:00 11/01/19 14:54 Oxycodone/ Acetaminophen (Percocet 5mg/ 325mg Tablet) 1 tab ASDIRECTED PRN PO PAIN LEVEL 1-4 10/22/19 11:00 10/22/19 11:24 DC 10/22/19 11:00 Oxycodone/ Acetaminophen (Percocet 5mg/ 325mg Tablet) 1 tab Q4H PRN PO SEVERE PAIN (PS 8-10) 10/22/19 11:00 10/29/19 16:28 DC 10/29/19 14:45 Oxycodone/ Acetaminophen (Percocet 5mg/ 325mg Tablet) 2 tab Q6HP PRN PO SEVERE PAIN (PS 8-10) 10/29/19 16:30 11/10/19 06:26 Senna (Senokot) 2 tab QHS PO 11/03/19 21:00 11/09/19 21:37 Sucralfate (Carafate) 1 gm BID PO 10/22/19 21:00 11/10/19 08:47 Terazosin HCl (Hytrin) 5 mg DAILY@2100 PO 10/22/19 21:00 11/09/19 21:37 Tolterodine Tartrate (Detrol La) 4 mg DAILY PO 10/23/19 09:00 11/10/19 09:39 Tramadol HCl (Ultram) 50 mg Q6HP PRN PO MODERATE PAIN (PS 5-7) 10/23/19 12:00 11/09/19 21:38 Allergies Coded Allergies: morphine (Verified Adverse Reaction, Intermediate, nausea/vomiting, 10/22/19) Objective Physical Examination Examination GENERAL APPEARANCE:Patient seen, laying in bed, awake, alert, and oriented. Comfortable, in no acute distress. SKIN: Warm and moist. Left posterior thigh flap viable, intact. Incision intact. Middle of incision sutures dissolving with minimal serous drainage. Slight redness. No tenderness. LUNGS: Clear to auscultation bilaterally. No wheezing appreciated. HEART: No chest wall abnormalities. Regular rate and rhythm with no murmurs appreciated. ABDOMEN: Abdomen is soft, non-tender, non-distended. Functional colostromy. EXTREMITIES: No edema identified. No calf tenderness. Vital Signs Vital Signs Date Time Temp Pulse Resp B/P (MAP) Pulse Ox O2 Delivery O2 Flow Rate FiO2 11/10/19 06:56 18 Room Air 11/10/19 06:00 98.4 91 128/78 (95) 98 I&Os I&O- Last 24 Hours up to 6 AM 11/10/19 05:59 Intake Total 1180 ml Output Total 500 ml Balance 680 ml Impression Flap viable. Sutures removed Settling well. Dressing changed today, Silver foam dressing. Keep bedrest until 11/11 Plan to go to rehab. Healing well. Plan / VTE VTE Prophylaxis Ordered?: Yes (Lovenox SQ) RADHA ALTMAN DO Nov 10, 2019 12:28
[2019-11-10] MEDS: MAALOX 30 ML SUSP *UDC PO PRN (13:51)
[2019-11-10] MEDS: TERAZOSIN 5 MG CAP PO SCH (20:51)
[2019-11-10] MEDS: SENNA 8.6 MG TAB (SENOKOT) PO SCH ×2 (20:52→21:00)
[2019-11-11] MEDS: PERCOCET 5MG/325MG TAB PO PRN ×4 (03:25→22:12)
[2019-11-11] MEDS: hydrOXYzine 50 MG TAB PO PRN ×4 (03:25→22:12)
[2019-11-11 06:00] VITALS: BP 132/83
[2019-11-11 06:05] LABS: BASO % 0.4 % (0.0-1.0); EOS # 0.3 10^3/uL (0.0-0.5); EOS % 6.2 % (0.0-3.0); HEMATOCRIT 38.5 % (42.0-52.0); HEMOGLOBIN 12.7 g/dl (13.5-17.5); LYMPH # 1.8 10^3/uL (1.5-5.0); LYMPH % 33.1 % (24.0-44.0); MEAN CORPUSCULAR HEMOGLOBIN 30.8 pg (27.0-33.0); MEAN CORPUSCULAR VOLUME 93.2 fl (80.0-96.0); MONO # 0.6 10^3/uL (0.0-0.8); MONO % 10.9 % (0.0-5.0); NEUTROPHILS # 2.6 10^3/uL (1.5-8.5); NEUTROPHILS % 48.8 % (36.0-66.0); PLATELET COUNT, AUTOMATED 312 10^3/uL (150-450); RED BLOOD COUNT 4.13 10^6/uL (4.30-6.10); WHITE BLOOD COUNT 5.3 10^3/uL (4.0-10.0)
[2019-11-11 06:34] LABS: ALBUMIN 3.4 GM/DL (3.2-5.2); ALT/SGPT 34 U/L (12-78); BILIRUBIN,TOTAL 0.2 MG/DL (0.2-1.0); BLOOD UREA NITROGEN 9 MG/DL (7-18); CALCIUM LEVEL 8.8 MG/DL (8.5-10.1); CARBON DIOXIDE LEVEL 26 MEQ/L (21-32); CHLORIDE LEVEL 107 MEQ/L (98-107); CREATININE FOR GFR 0.43 MG/DL (0.70-1.30); GLOMERULAR FILTRATION RATE > 60.0 (>60); GLUCOSE, FASTING 92 MG/DL (70-100); POTASSIUM SERUM 3.7 MEQ/L (3.5-5.1); SODIUM LEVEL 137 MEQ/L (136-145); TOTAL PROTEIN 7.2 GM/DL (6.4-8.2)
[2019-11-11] MEDS: BISACODYL 5 MG TAB PO SCH ×2 (09:00→10:18)
[2019-11-11] MEDS: ASCORBIC ACID 500 MG TAB PO SCH (10:16)
[2019-11-11] MEDS: OMEPRAZOLE 20 MG CAP PO SCH ×2 (10:17→21:42)
[2019-11-11] MEDS: BACLOFEN 10 MG TAB PO SCH ×3 (10:17→21:41)
[2019-11-11] MEDS: SUCRALFATE 1 GM TAB PO SCH ×2 (10:18→21:42)
[2019-11-11] MEDS: DANTROLENE 25 MG CAP PO SCH ×2 (10:18→21:41)
[2019-11-11] MEDS: ENOXAPARIN 40 MG/0.4 ML SYRINGE (J1650) SC SCH (10:19)
[2019-11-11] MEDS: TOLTERODINE TARTRATE 2 MG LA CAP (DETROL LA) PO SCH (10:41)
[2019-11-11] MEDS: buPROPion **SR TABLET** (ZYBAN) 150MG PO SCH ×2 (10:41→21:41)
[2019-11-11] MEDS: traMADol 50 MG TAB PO PRN (14:24)
[2019-11-11 21:41] VITALS: BP 110/63
[2019-11-11] MEDS: TERAZOSIN 5 MG CAP PO SCH (21:41)
[2019-11-11] MEDS: SENNA 8.6 MG TAB (SENOKOT) PO SCH (21:42)
[2019-11-11] MEDS: MAALOX 30 ML SUSP *UDC PO PRN (22:59)
[2019-11-12 06:00] VITALS: BP 111/64
[2019-11-12] MEDS: PERCOCET 5MG/325MG TAB PO PRN ×3 (06:51→18:32)
[2019-11-12] MEDS: hydrOXYzine 50 MG TAB PO PRN ×3 (06:51→18:31)
[2019-11-12] MEDS: DANTROLENE 25 MG CAP PO SCH ×2 (09:19→21:10)
[2019-11-12] MEDS: SUCRALFATE 1 GM TAB PO SCH ×2 (09:19→21:11)
[2019-11-12] MEDS: buPROPion **SR TABLET** (ZYBAN) 150MG PO SCH ×2 (09:19→21:10)
[2019-11-12] MEDS: BISACODYL 5 MG TAB PO SCH (09:19)
[2019-11-12] MEDS: TOLTERODINE TARTRATE 2 MG LA CAP (DETROL LA) PO SCH (09:20)
[2019-11-12] MEDS: BACLOFEN 10 MG TAB PO SCH ×3 (09:20→21:10)
[2019-11-12] MEDS: ENOXAPARIN 40 MG/0.4 ML SYRINGE (J1650) SC SCH (09:21)
[2019-11-12] MEDS: OMEPRAZOLE 20 MG CAP PO SCH ×2 (09:21→21:10)
[2019-11-12] MEDS: ASCORBIC ACID 500 MG TAB PO SCH (09:21)
[2019-11-12] MEDS: MAALOX 30 ML SUSP *UDC PO PRN (09:30)
[2019-11-12] MEDS: traMADol 50 MG TAB PO PRN ×2 (16:01→21:11)
--- NOTE | 2019-11-12 16:12 | IPNPDOC ---
Subjective General Date Seen: Nov 12, 2019 Subject Chief Complaint/History The patient is a 39-year-old male admitted with a reason for visit of Pressure Ulcer Left Buttock. Patient s/p debridement Left ischial stage 4 wound with posterior lateral thigh flap closure POD 21. Doing well. Current Medications Current Medications Current Medications Medications (Trade) Dose Ordered Sig/Claudia Route PRN Reason Start Time Stop Time Status Last Admin Dose Admin Al Hydrox/Mg Hydrox/Simethicone (Mylanta) 30 ml Q4HP PRN PO INDIGESTION 11/10/19 12:45 11/12/19 09:30 Albuterol Sulfate (Proventil, Ventolin Hfa) 2 puff RQ6H PRN INH wheezing 10/22/19 12:15 Ascorbic Acid (Vitamin C) 500 mg DAILY PO 10/23/19 09:00 11/12/19 09:21 Baclofen (Lioresal) 20 mg TID PO 10/23/19 09:00 11/12/19 16:02 Bisacodyl (Dulcolax Tab) 5 mg DAILY PO 11/04/19 09:00 11/12/19 09:19 Bisacodyl (Dulcolax Tab) 5 mg DAILY PRN PO CONSTIPATION 10/22/19 12:15 11/03/19 11:35 DC 11/03/19 09:47 Bupropion HCl (Zyban, Wellbutrin Sr) 150 mg BID PO 10/22/19 21:00 11/12/19 09:19 Cefazolin Sodium 1 gm/Dextrose 50 ml @ 100 mls/hr Q8H IV 10/22/19 16:00 10/25/19 14:30 DC 10/25/19 08:28 Ceftriaxone Sodium 1 gm/ Dextrose 50 ml @ 100 mls/hr Q12H IV 10/25/19 16:00 10/30/19 08:50 DC 10/30/19 03:51 Ceftriaxone Sodium 2 gm/ Dextrose 50 ml @ 100 mls/hr Q24H IV 10/31/19 09:00 Cancel Dantrolene Sodium (Dantrium) 50 mg BID PO 10/22/19 21:00 11/12/19 09:19 Enoxaparin Sodium (Lovenox) 40 mg DAILY SC 10/23/19 09:00 11/12/19 09:21 Fentanyl Citrate (Sublimaze) 25 mcg Q5MP PRN IV PAIN LEVEL 5-10 10/22/19 11:00 10/22/19 12:00 DC Hydralazine HCl (Apresoline) 5 mg Q5M IV 10/22/19 12:45 10/22/19 16:55 DC 10/22/19 12:44 Hydromorphone HCl (Dilaudid) 0.2 mg Q5MP PRN IV PAIN LEVEL 4-7 10/22/19 11:00 10/22/19 11:24 DC 10/22/19 11:20 Hydromorphone HCl (Dilaudid) 0.2 mg Q5MP PRN IV PAIN LEVEL 4-7 10/22/19 14:30 10/22/19 15:30 DC 10/22/19 15:20 Hydroxyzine HCl (Atarax) 50 mg Q6HP PRN PO ANXIETY 10/22/19 12:15 11/12/19 12:36 Ketorolac Tromethamine (ToRADol) 10 mg Q6HP PRN PO MODERATE PAIN (PS 5-7) 10/22/19 11:00 10/22/19 10:50 DC Ketorolac Tromethamine (ToRADol) 10 mg Q6HP PRN PO MODERATE PAIN (PS 5-7) 10/22/19 16:00 10/27/19 15:59 DC 10/24/19 01:17 Ketorolac Tromethamine (ToRADol) 30 mg ONCE PRN IV PAIN 10/22/19 13:15 10/22/19 13:34 DC 10/22/19 10:17 Labetalol HCl (Normodyne, Trandate) 5 mg Q5M IV 10/22/19 12:45 10/22/19 16:56 DC 10/22/19 12:31 Lactated Ringer's 1,000 ml @ 100 mls/hr Q10H IV 10/22/19 11:00 10/22/19 12:00 DC 10/22/19 09:55 Lidocaine (Lidoderm Patch) 1 patch DAILY PRN TD MILD/MODERATE PAIN (PS 1-7) 10/28/19 09:00 Lidocaine (Lidoderm Patch) 2 patch DAILY PRN TD MODERATE/SEVERE PAIN (PS 5-10) 10/28/19 09:00 11/02/19 21:33 Metronidazole (Flagyl) 500 mg Q8H PO 10/28/19 14:00 10/31/19 10:25 DC 10/31/19 05:21 Miscellaneous (Unresolved Clarification Entry) SEE LABEL COMMENTS DAILY XX 11/03/19 09:00 11/03/19 11:55 DC Miscellaneous (Unresolved Clarification Entry) SEE LABEL COMMENTS DAILY XX 11/09/19 09:00 11/09/19 17:40 DC 11/09/19 11:49 Miscellaneous (Unresolved Clarification Entry) SEE LABEL COMMENTS DAILY XX 11/09/19 09:00 11/09/19 18:27 DC Non-Formulary Medication ( See Comment Field Below ) REMOVE LIDODERM PATCH DAILY@21 XX 10/28/19 21:00 11/11/19 21:42 Omeprazole (PriLOSEC) 20 mg BID PO 10/22/19 21:00 11/12/19 09:21 Ondansetron HCl (ZOFRAN INJection) 4 mg Q4H PRN IV NAUSEA 10/22/19 11:00 10/30/19 14:53 Ondansetron HCl (ZOFRAN INJection) 4 mg Q4HP PRN IV NAUSEA OR VOMITING 10/22/19 11:00 10/22/19 12:00 DC 10/22/19 10:15 Ondansetron HCl (Zofran Odt) 4 mg Q4HP PRN PO NAUSEA OR VOMITING 10/30/19 22:00 11/01/19 14:54 Oxycodone/ Acetaminophen (Percocet 5mg/ 325mg Tablet) 1 tab ASDIRECTED PRN PO PAIN LEVEL 1-4 10/22/19 11:00 10/22/19 11:24 DC 10/22/19 11:00 Oxycodone/ Acetaminophen (Percocet 5mg/ 325mg Tablet) 1 tab Q4H PRN PO SEVERE PAIN (PS 8-10) 10/22/19 11:00 10/29/19 16:28 DC 10/29/19 14:45 Oxycodone/ Acetaminophen (Percocet 5mg/ 325mg Tablet) 2 tab Q6HP PRN PO SEVERE PAIN (PS 8-10) 10/29/19 16:30 11/12/19 12:38 Senna (Senokot) 2 tab QHS PO 11/03/19 21:00 11/11/19 21:42 Sucralfate (Carafate) 1 gm BID PO 10/22/19 21:00 11/12/19 09:19 Terazosin HCl (Hytrin) 5 mg DAILY@2100 PO 10/22/19 21:00 11/11/19 21:41 Tolterodine Tartrate (Detrol La) 4 mg DAILY PO 10/23/19 09:00 11/12/19 09:20 Tramadol HCl (Ultram) 50 mg Q6HP PRN PO MODERATE PAIN (PS 5-7) 10/23/19 12:00 11/12/19 16:01 Allergies Coded Allergies: morphine (Verified Adverse Reaction, Intermediate, nausea/vomiting, 10/22/19) Objective Physical Examination Examination GENERAL APPEARANCE:Patient seen, laying in bed, awake, alert, and oriented. Com fortable, in no acute distress. SKIN: Warm and moist. Left posterior thigh flap healed. Small amount of diminishing redness, where sutures spit. No infection. LUNGS: Clear to auscultation bilaterally. No wheezing appreciated. HEART: No chest wall abnormalities. Regular rate and rhythm with no murmurs appreciated. ABDOMEN: Abdomen is soft, non-tender, non-distended. Functioning colostomy. Vital Signs Vital Signs Date Time Temp Pulse Resp B/P (MAP) Pulse Ox O2 Delivery O2 Flow Rate FiO2 11/12/19 16:01 18 Room Air 11/12/19 06:00 97.6 73 111/64 (80) 98 I&Os I&O- Last 24 Hours up to 6 AM 11/12/19 06:00 Intake Total 1490 ml Output Total 2350 ml Balance -860 ml Impression S/p flap left posterior thigh to Left ischial wound. Healed. D/c bedrest. May start restorative PT/OT Patient has poor sensation in the gluteal area, needs to be repositioned every 1.5-2 hrs while sitting to offload the wound. He is not ready to be transferred home for independent living. Patient to be assessed and transferred to appropriate level of rehab after evaluation with PT/OT. Findings and plan discussed with patient and his mother, both agree with plan. Dressing changed today: Xeroform/dry gauze. Plan / VTE VTE Prophylaxis Ordered?: Yes (Lovenox SQ) RADHA ALTMAN DO Nov 12, 2019 16:12
[2019-11-12] MEDS: SENNA 8.6 MG TAB (SENOKOT) PO SCH (21:10)
[2019-11-12] MEDS: TERAZOSIN 5 MG CAP PO SCH (21:10)
[2019-11-12] MEDS ORDERED: SODIUM CHLORIDE NASAL 0.65% SPRAY BTL (OCEAN) PRN (21:30)
[2019-11-13] MEDS: hydrOXYzine 50 MG TAB PO PRN ×2 (00:06→13:45)
[2019-11-13] MEDS: traMADol 50 MG TAB PO PRN (00:06)
[2019-11-13 05:32] VITALS: BP 123/82
[2019-11-13] MEDS: ENOXAPARIN 40 MG/0.4 ML SYRINGE (J1650) SC SCH (09:13)
[2019-11-13] MEDS: TOLTERODINE TARTRATE 2 MG LA CAP (DETROL LA) PO SCH (09:13)
[2019-11-13] MEDS: ASCORBIC ACID 500 MG TAB PO SCH (09:14)
[2019-11-13] MEDS: BACLOFEN 10 MG TAB PO SCH (09:14)
[2019-11-13] MEDS: BISACODYL 5 MG TAB PO SCH (09:14)
[2019-11-13] MEDS: OMEPRAZOLE 20 MG CAP PO SCH (09:14)
[2019-11-13] MEDS: DANTROLENE 25 MG CAP PO SCH (09:14)
[2019-11-13] MEDS: SUCRALFATE 1 GM TAB PO SCH (09:14)
[2019-11-13] MEDS ORDERED: TRAM50TA2 PO (11:30)
[2019-11-13] MEDS ORDERED: MYLASSUD PO (11:30)
[2019-11-13] MEDS ORDERED: SENN18TA PO (11:30)
[2019-11-13] MEDS ORDERED: PERCOCET PO (11:30)
[2019-11-13] MEDS ORDERED: ASCO50TA PO (11:30)
[2019-11-13] MEDS ORDERED: BISAC5TA PO (11:30)
[2019-11-13] MEDS: buPROPion **SR TABLET** (ZYBAN) 150MG PO SCH (11:55)
[2019-11-13] MEDS: PERCOCET 5MG/325MG TAB PO PRN (11:55)
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
== END 2019-11-13 14:30 | DRG 573 ==
LOC: M OR 06:07 → M MS5PR 16:10
PROVIDERS: ADMIT Plastic Surgery Surgery of the Hand; ATTEND Internal Medicine Nephrology
PROC: 0QB30ZZ Excision of Left Pelvic Bone, Open Approach (ICD-10-PCS; 2019-10-22)
PROC: 0JXM0ZC Transfer Left Upper Leg Subcutaneous Tissue and Fascia with Skin, Subcutaneous Tissue and Fascia, Open Approach (ICD-10-PCS; principal; 2019-10-22 07:30)
DX: L89.324 Pressure ulcer of left buttock, stage 4 (principal); G82.53 Quadriplegia, C5-C7 complete; Z79.899 Other long term (current) drug therapy; B95.4 Other streptococcus as the cause of diseases classified elsewhere; M81.8 Other osteoporosis without current pathological fracture; M43.22 Fusion of spine, cervical region; M62.838 Other muscle spasm; K21.9 Gastro-esophageal reflux disease without esophagitis; F32.9 Major depressive disorder, single episode, unspecified; F41.9 Anxiety disorder, unspecified; G90.4 Autonomic dysreflexia; B96.20 Unspecified Escherichia coli [E. coli] as the cause of diseases classified elsewhere; M54.31 Sciatica, right side; B96.6 Bacteroides fragilis [B. fragilis] as the cause of diseases classified elsewhere; Z88.5 Allergy status to narcotic agent; Z87.891 Personal history of nicotine dependence

== ENCOUNTER 2019-11-13 12:14 | Inpatient (IN) | payer MEDICARE, MEDICAID ==
[~2019-11-13] VITALS: Ht 167.6 cm; Wt 72.6 kg
[~2019-11-13 12:14] MED LIST changes: +ASCO50TA PO; +BISAC5TA PO; -LR 1,000 ML IV ONE; +MYLASSUD PO; +PERCOCET PO; +SENN18TA PO; +TRAM50TA2 PO; -ceFAZolin SOD 1 GM in D5W MINI-BAG PLUS 50 ML IV ONE
[2019-11-13 14:26] VITALS: BP 138/63
[2019-11-13] MEDS ORDERED: ALBUTEROL SULFATE 2.5 MG/0.5 ML INH NEB SOLN NEB PRN (17:15)
[2019-11-13] MEDS: LACTOBACILLUS ACIDOPHILUS CAP (BACID) PO SCH (17:57)
[2019-11-13] MEDS: BACLOFEN 10 MG TAB PO SCH ×2 (17:57→21:03)
[2019-11-13] MEDS: SUCRALFATE 1 GM TAB PO SCH (17:58)
[2019-11-13] MEDS: ACETAMINOPHEN 500 MG TAB PO SCH ×2 (17:58→21:05)
[2019-11-13 21:00] VITALS: BP 122/69
[2019-11-13] MEDS ORDERED: **NOTE PATIENT COMMENT** MISC XX SCH (21:00)
[2019-11-13] MEDS: hydrOXYzine 50 MG TAB PO PRN (21:03)
[2019-11-13] MEDS: buPROPion **SR TABLET** (ZYBAN) 150MG PO SCH (21:05)
[2019-11-13] MEDS: DANTROLENE 25 MG CAP GT SCH (21:05)
[2019-11-13] MEDS: oxyCODONE 5MG TAB PO PRN (21:06)
[2019-11-13] MEDS: TERAZOSIN 5 MG CAP PO SCH (21:06)
[2019-11-13] MEDS: SODIUM CHLORIDE NASAL 0.65% SPRAY BTL (OCEAN) SCH (21:07)
[2019-11-14 05:42] VITALS: BP 120/66
[2019-11-14] MEDS: SUCRALFATE 1 GM TAB PO SCH ×2 (07:32→16:30)
[2019-11-14] MEDS: oxyCODONE 5MG TAB PO PRN ×4 (07:32→20:36)
[2019-11-14 07:45] LABS: HEMATOCRIT 38.7 % (42.0-52.0); HEMOGLOBIN 12.9 g/dl (13.5-17.5); MEAN CORPUSCULAR HEMOGLOBIN 31.3 pg (27.0-33.0); MEAN CORPUSCULAR HGB CONC 33.3 g/dl (32.0-36.5); MEAN CORPUSCULAR VOLUME 93.9 fl (80.0-96.0); PLATELET COUNT, AUTOMATED 300 10^3/uL (150-450); RED BLOOD COUNT 4.12 10^6/uL (4.30-6.10); WHITE BLOOD COUNT 3.8 10^3/uL (4.0-10.0)
[2019-11-14] MEDS: LACTOBACILLUS ACIDOPHILUS CAP (BACID) PO SCH (08:10)
[2019-11-14] MEDS: BISACODYL 5 MG TAB PO SCH (08:10)
[2019-11-14] MEDS: DANTROLENE 25 MG CAP GT SCH (08:10)
[2019-11-14] MEDS: TOLTERODINE TARTRATE 2 MG LA CAP (DETROL LA) PO SCH (08:10)
[2019-11-14] MEDS: buPROPion **SR TABLET** (ZYBAN) 150MG PO SCH ×2 (08:10→20:35)
[2019-11-14] MEDS: SODIUM CHLORIDE NASAL 0.65% SPRAY BTL (OCEAN) SCH ×3 (08:11→20:36)
[2019-11-14] MEDS: ASCORBIC ACID 500 MG TAB PO SCH (08:11)
[2019-11-14] MEDS: BACLOFEN 10 MG TAB PO SCH ×3 (08:11→20:34)
[2019-11-14] MEDS: ACETAMINOPHEN 500 MG TAB PO SCH ×3 (08:11→20:34)
[2019-11-14] MEDS: ENOXAPARIN 40 MG/0.4 ML SYRINGE (J1650) SC SCH (08:11)
[2019-11-14 08:22] LABS: ALBUMIN 3.3 GM/DL (3.2-5.2); ALT/SGPT 35 U/L (12-78); BILIRUBIN,TOTAL 0.2 MG/DL (0.2-1.0); BLOOD UREA NITROGEN 14 MG/DL (7-18); CALCIUM LEVEL 8.8 MG/DL (8.5-10.1); CARBON DIOXIDE LEVEL 24 MEQ/L (21-32); CHLORIDE LEVEL 112 MEQ/L (98-107); CREATININE FOR GFR 0.43 MG/DL (0.70-1.30); GLOMERULAR FILTRATION RATE > 60.0 (>60); GLUCOSE, FASTING 97 MG/DL (70-100); SODIUM LEVEL 142 MEQ/L (136-145); TOTAL PROTEIN 6.7 GM/DL (6.4-8.2)
[2019-11-14 08:47] LABS: ATYPICAL LYMPH 1 % (0-5); BASOPHILS 1 % (0-1); EOSINOPHILS 6 % (0-3); LYMPHOCYTES 48 % (16-44); MONOCYTES 8 % (0-5); NEUTROPHILS 35 % (28-66); PLATELET ESTIMATE NORMAL (NORMAL)
[2019-11-14] MEDS ORDERED: LIDOCAINE 5% (LIDODERM) PATCH TD SCH (09:00)
[2019-11-14] MEDS: hydrOXYzine 50 MG TAB PO PRN ×2 (10:17→20:35)
[2019-11-14 10:57] LABS: BASO % 0.8 % (0.0-1.0); EOS # 0.3 10^3/uL (0.0-0.5); EOS % 7.1 % (0.0-3.0); LYMPH # 1.5 10^3/uL (1.5-5.0); LYMPH % 39.8 % (24.0-44.0); MONO # 0.4 10^3/uL (0.0-0.8); MONO % 11.3 % (0.0-5.0); NEUTROPHILS # 1.5 10^3/uL (1.5-8.5); NEUTROPHILS % 40.7 % (36.0-66.0)
[2019-11-14 14:00] VITALS: BP 129/68
--- NOTE | 2019-11-14 14:09 | CR.PDOC ---
General Date of Consultation: Nov 14, 2019 Consultation REASON FOR CONSULTATION/CHIEF COMPLAINT: Management of medical comorbidities while on the rehabilitation unit HISTORY OF PRESENT ILLNESS: Mr. Arias is a 39-year-old male who has been t ransferred to acute rehabilitation from the [facility]. The patient was admitted by plastic surgery for I & D and flap repair of a stage IV sacral decubital ulcer with ischial osteomyelitis. Procedure was completed by Dr. Khan on 10/22. Wound cultures taken at the time of the procedure were positive for Escherichia coli, Strep. G and P. Melaninogenica. Patient was treated to completion with Rocephin and and Flagyl. Patient was placed on strict 3 week bed rest by his surgeon in order to preserve the flap. During that time, he received bed PT only , which has resulted in physical deconditioning. Patient was assessed and deemed suitable for transfer to the acute rehabilitation unit on 11/12. Patient is seen sitting up today with his mother present. He stated he is doing very well. He has some mild pain in the lower back, likely due to him sitting up for some time today. No further complaints ALLERGIES: Please see below. HOME MEDICATIONS: Please see below. PAST MEDICAL/SURGICAL HISTORY: Traumatic quadriplegia, 2005 Stage IV sacral decubital ulcer with ischial osteomyelitis Diverting colostomy in 2018 Osteoporosis. Chronic urinary retention with supra-pubic catheter, since 2007 Partial resection of the left hip, 2004. Tracheostomy, 2004. C4-C7 fusion, 2004 FAMILY HISTORY: Father: Heart disease Mother: Hypertension SOCIAL HISTORY: Tobacco use: Previous smoker ETOH: Denied Illicit drug use: Denied IV drug use: Denied REVIEW OF SYSTEMS: Constitutional: Denies: Chills, Fever, Night Sweats Eyes: Denies: Pain ENT: Denies: Head Aches Skin: Denies: Rash Pulmonary: Denies: Dyspnea, Cough Cardiovascular: Denies: Chest Pain, Palpitations, Orthopnea, Paroxysmal Noc. Dy spnea, Lt Headedness Gastrointestinal: Denies: Nausea, Vomiting, Abdominal Pain, Diarrhea Genitourinary: Denies: Dysuria Musculoskeletal: Reports: mild lower back/sacral pain Denies: Neck Pain, Joint Pain, Muscle Pain, Spasms Neurological: Denies: Weakness, Numbness Psych: Reports: Mood Normal; PHYSICAL EXAMINATION: VITAL SIGNS: Please see below. General Exam: Positive: Alert, Cooperative, No Acute Distress Eye Exam: Positive: PERRLA, Conjunctiva & lids normal, EOMI; Negative: Sclera icteric ENT Exam: Positive: Atraumatic, Mucous membr. moist/pink, Pharynx Normal Neck Exam: Positive: Supple; Negative: thyromegaly Chest Exam: Positive: Clear to auscultation, Normal air movement Heart Exam: Positive: Rate Normal, Regular Rhythm, Normal S1, Normal S2; Negative: Murmurs, Rubs Telemetry: Positive: No significant arrhythmia Abdomen Exam: Positive: Normal bowel sounds, Soft, Other (colostomy present and suprapubic cath present); Negative: Tenderness Extremity Exam: Negative: Clubbing, Cyanosis, Edema Skin Exam: Positive: Nl turgor and temperature; Negative: Breakdown, Lesion Neuro Exam: Positive: Other (quadriplegic) Psych Exam: Positive: Mood NL, Oriented x 3 LABORATORY DATA: Please see below. ASSESSMENT/PLAN: 1. Traumatic quadriplegia with physical deconditioning. Continued rehabilitation per physiatry 2. Stage IV left ischial pressure wound. -S/P flap closure per Dr. Khan Has completed 3 weeks of strict bedrest, ceftriaxone and Flagyl therapy directed by positive wound cultures. Cleared by plastic surgery to start physical therapy/acute rehabilitation 3. Mood disorder and anxiety. Continue Wellbutrin and Vistaril 4. Chronic urinary retention. Continue Detrol La and Terazosin Suprapubic catheter in place 5. GERD. Continue sucralfate, PPI 6. Muscle spasms. Due to history of a C5 injury. Continue baclofen and dantrolene DVT prophylaxis: Lovenox Vital Signs/I&O Vital Signs Date Time Temp Pulse Resp B/P (MAP) Pulse Ox O2 Delivery O2 Flow Rate FiO2 11/14/19 13:02 19 11/14/19 05:42 97.0 70 120/66 (84) 96 Room Air I&O- Last 24 Hours up to 6 AM 11/14/19 06:00 Intake Total 470 ml Output Total 1825 ml Balance -1355 ml Laboratory Data Labs 24H Laboratory Tests 2 11/14/19 07:30: Immature Granulocyte % (Auto) 0.3, Neutrophils (%) (Auto) 40.7, Lymphocytes (%) (Auto) 39.8, Monocytes (%) (Auto) 11.3H, Eosinophils (%) (Auto) 7.1H, Basophils (%) (Auto) 0.8, Immature Granulocyte # (Auto) 0.0, Neutrophils # (Auto) 1.5, Lymphocytes # (Auto) 1.5, Monocytes # (Auto) 0.4, Eosinophils # (Auto) 0.3, Basophils # (Auto) 0.0, Nucleated Red Blood Cells % (auto) 0.0, Neutrophils 35, Band Neutrophils 1, Lymphocytes (Manual) 48H, Monocytes (Manual) 8H, Eosinophils (Manual) 6H, Basophils (Manual) 1, Atypical Lymphocytes 1, Platelet Estimate NORMAL, Anion Gap 6L, Glomerular Filtration Rate > 60.0, Calcium Level 8.8, Total Bilirubin 0.2, Aspartate Amino Transf (AST/SGOT) 14, Alanine Aminotransferase (ALT/SGPT) 35, Alkaline Phosphatase 92, Total Protein 6.7, Albumin 3.3, Albumin/Globulin Ratio 0.97L CBC/BMP Laboratory Tests 11/14/19 07:30 Allergies Coded Allergies: morphine (Verified Adverse Reaction, Intermediate, nausea/vomiting, 10/22/19) Home Medications Scheduled Ascorbic Acid (Vitamin C) 500 Mg Tablet, 500 MG PO DAILY, #30 Baclofen (Baclofen) 20 Mg Tab, 20 MG PO TID, (Reported) Bisacodyl (Bisacodyl) 5 Mg Tablet.dr, 5 MG PO DAILY, #30 Bupropion HCl (Bupropion HCl Sr) 150 Mg Tab, 150 MG PO BID for 30 Days, #60 (Reported) Calcium Carbonate (Calcium) 600 Mg Tab, 600 MG PO BID, (Reported) Dantrolene Sodium (Dantrolene Sodium) 25 Mg Cap, 50 MG PO BID for 30 Days, #120 Lactobacillus Acidophilus (Probiotic Acidophilus) 1 Cap Cap, 1 CAP PO DAILY for 30 Days, #30 (Reported) Multivitamin (Multivitamins) 1 Cap Cap, 1 CAP PO DAILY for 30 Days, #30 (Reported) Omeprazole (Omeprazole) 20 Mg Tab, 20 MG PO BID, (Reported) Senna (Senna Lax) 8.6 Mg Tablet, 2 TAB PO QHS, #60 Sucralfate (Sucralfate) 1 Gm Tab, 1 GM PO BID for 30 Days, #60 Terazosin HCl (Terazosin HCl) 5 Mg Cap, 5 MG PO DAILY, (Reported) Tolterodine Tartrate (Tolterodine Tartrate ER) 4 Mg Cap, 4 MG PO DAILY for 30 Days, #30 (Reported) Scheduled PRN Albuterol Sulf (Albuterol Sulfate) 2.5 Mg/3 Ml Nebu, 2.5 MGDR INH QIDP PRN for SHORTNESS OF BREATH, (Reported) Albuterol Sulfate (Ventolin Hfa) 108 Mcg/Act Aer, 2 PUFF INH Q4-6HP PRN for wheezing for 30 Days, #1 (Reported) Aluminum/Magnesium/Simeth (Mag-Al Plus Suspension) 30 Ml Oral.susp, 30 ML PO Q4HP PRN for INDIGESTION, #300 Hydroxyzine HCl (Hydroxyzine HCl) 50 Mg Tab, 50 MG PO Q6HP PRN for ANXIETY, #30 Oxycodone/Acetaminophen (Oxycodone-Acetaminophen 5-325) 1 Each Tablet, 2 TAB PO Q8HP PRN for SEVERE PAIN (PS 8-10), #20 Tramadol HCl (Tramadol HCl) 50 Mg Tablet, 50 MG PO Q6HP PRN for MODERATE PAIN (PS 5-7), #20 RADHA YO PA-C Nov 14, 2019 14:09
--- NOTE | 2019-11-14 14:34 | HPEPDOC ---
[employer] Repairer Note DATE OF ADMISSION: 11-13-19 DATE OF SERVICE: 11-14-19 TIME OF ADMISSION: Please refer to physician's admission order. 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 He was kept on bedrest for 3 weeks, with daily dressing changes and pain management. Due to longstanding immobility patients bed mobility, ADLs, and ability to transfer with a slide board were diminished. He had persistent pain in his left leg, and deemed medically appropriate for discharge to ARU for rehab. REVIEW OF SYSTEMS: The following is a completed review of systems and has been reviewed. Review of systems otherwise unremarkable. PAIN: Patient self reports left leg pain EYES: No recent vision changes EARS, NOSE, & THROAT: No throat pain, or dysphagia, or rhinorrhea CARDIOVASCULAR: Denies chest pain or palpitations PULMONARY: Denies shortness of breath GASTROINTESTINAL: Denies constipation/diarrhea GENITOURINARY: +SPC MUSCULOSKELETAL: +tetraplegia NEUROLOGICAL: +tetraplegia HEMATOLOGICAL: denies easy bruising SKIN: left ischial wound PSYCHIATRIC: Unremarkable All other review of systems found to be negative. PAST MEDICAL HISTORY: as per HPI PAST SURGICAL HISTORY: Tracheostomy 2004, left hip partial resection 2004 for cervical fusion, IVC filter 2004 ALLERGIES: Please see below. MEDICATIONS: Please see below. FAMILY HISTORY: Cardiac/HTN SOCIAL HISTORY: former smoker, occasional ETOH, no illicit drugs DIET: regular PHYSICAL EXAMINATION: VITAL SIGNS: Please see below. GENERAL: Pleasant and cooperative. No acute distress. HEENT: PERRL. Extraocular movements intact. Clear conjunctiva CARDIOVASCULAR: Regular rate and rhythm. No murmurs, rubs, or gallops LUNGS: Clear to auscultation bilaterally. No wheezes. No rhonchi ABDOMEN: Soft, mildly-distended. Positive bowel sounds. NEUROLOGICAL: Alert and oriented times three. Cranial nerves II through XII grossly intact. Sensation diminished to light touch throughout all 4 limbs and trunk excluding C2-C5 dermatomes (+) bilat clonus EXTREMITIES: 4/5 bilat shoulder abduction and elbow flexion, 3/5 left wrist extension and 3+/5 right wrist extension, 0/5 for remainder of MMT exam SKIN: no skin breakdown bilat heels, left ischial wound with bandage (c/d/i without per-wound induration/erythema) LABORATORY DATA: Please see below. IMAGING:Imaging documentation personally reviewed by record FUNCTIONAL STATUS: Premorbid: Min-assistance with slide board transfers up until 1 year ago, Mod-I for bed mobility, requiring assistance with Upper body dressing and colostomy care On Admission: Max assist for bed mobility, dressing, toileting, transfers GOALS: Min-assistance with slide board transfers, Mod-I for bed mobility, min assistance for Upper body dressing and colostomy care, medical optimization, and assess needs for DMEs ASSESSMENT: 39-year-old M with past medical history of C-6 complete tetraplegia who presents status post left ischial wound flap surgery. PLAN: 1. Rehab- PT- advance slide board transfers and bed mobility, over-teach pressure relief both in bed and while in the chair -OT advance ADL management for colostomy care, upper body dressing 2. Neuro: s/p C6 complete tetraplegia since 2004, monitor for autonomic dysreflexia -tone/spasticity c/u baclofen and dantrium 3. Cardiac: no known Hx, monitor BPs 4. resp: encourage incentive spirometry, monitor for infection 5. Skin: s/p left ischial stage 4 wound debridement and flap- f/u with plastics 6. DVT ppx: c/u Lovenox +IVC filter 7. GI ppx: sucralfate -bisacodyl tab po daily 8. Pain: Tylenol and oxycodone prn 9. Psych: c/u Bupropion and Atarax for anxiety 10. : +suprapubic catheter c/u Detrol and terazosin 11. Dispo: TBD POST ADMISSION PHYSICIAN EVALUATION: Medical and functional status: Description of medical status, medical assessment: As above. Rehabilitation diagnosis and current and prior cold morbid medical conditions as above. Risk of complications and plans to mitigate them as above. Description of functional status current status is as above. Prior status as above. Status compared to preadmission: There are no clinically significant differences between the patient's current status and the information described on the preadmission screening document. Treatment plan anticipated: Treatment plan is as described above. Required disciplines including physical therapy, occupational therapy, others as noted above Intensity of services: 3 hours a day, 6 days a week. Special considerations: There are no specific special or safety considerations that would likely preclude immediate implementation of an intensive rehabilitation program or subsequently influence the plan of care. ATTESTATION: Considering all the information above, it is my best judgment that this patient requires intensive rehabilitation therapy as described above and an inpatient hospital environment due to the complexity of nursing, medical, and rehabilitation needs required by the patient. Furthermore, this patient can reasonably be expected to participate in an benefit from an inpatient rehabilitation stay with an interdisciplinary team approach to the delivery of rehabilitation care under the direction and supervision of rehabilitation physician. PROGNOSIS: good ESTIMATED LENGTH OF STAY:10-14 days. PROJECTED DISCHARGE DESTINATION: Home with family support and any durable medical equipment required to increase functional safety and mobility TIME SPENT COUNSELING AND COORDINATING INITIAL CARE: Greater than 70 minutes. Vital Signs Vital Sign - Last 24 Hours 11/13/19 11/13/19 11/13/19 11/13/19 14:26 21:00 21:06 21:06 Temp 98.1 97.9 Pulse 71 77 Resp 16 18 18 B/P (MAP) 138/63 (88) 122/69 (86) 122/69 Pulse Ox 97 99 O2 Delivery Room Air Room Air 11/13/19 11/14/19 11/14/19 11/14/19 21:36 05:42 07:32 08:13 Temp 97.0 Pulse 70 Resp 18 18 18 19 B/P (MAP) 120/66 (84) Pulse Ox 96 O2 Delivery Room Air 11/14/19 11/14/19 12:08 13:02 Resp 18 19 Laboratory Data CBC/BMP Laboratory Tests 11/14/19 07:30 Labs 24H Laboratory Tests 2 11/14/19 07:30: Immature Granulocyte % (Auto) 0.3, Neutrophils (%) (Auto) 40.7, Lymphocytes (%) (Auto) 39.8, Monocytes (%) (Auto) 11.3H, Eosinophils (%) (Auto) 7.1H, Basophils (%) (Auto) 0.8, Immature Granulocyte # (Auto) 0.0, Neutrophils # (Auto) 1.5, Lymphocytes # (Auto) 1.5, Monocytes # (Auto) 0.4, Eosinophils # (Auto) 0.3, Basophils # (Auto) 0.0, Nucleated Red Blood Cells % (auto) 0.0, Neutrophils 35, Band Neutrophils 1, Lymphocytes (Manual) 48H, Monocytes (Manual) 8H, Eosinophils (Manual) 6H, Basophils (Manual) 1, Atypical Lymphocytes 1, Platelet Estimate NORMAL, Anion Gap 6L, Glomerular Filtration Rate > 60.0, Calcium Level 8.8, Total Bilirubin 0.2, Aspartate Amino Transf (AST/SGOT) 14, Alanine Aminotransferase (ALT/SGPT) 35, Alkaline Phosphatase 92, Total Protein 6.7, Albumin 3.3, Albumin/Globulin Ratio 0.97L Home Medications Scheduled Ascorbic Acid (Vitamin C) 500 Mg Tablet, 500 MG PO DAILY Baclofen (Baclofen) 20 Mg Tab, 20 MG PO TID, (Reported) Bisacodyl (Bisacodyl) 5 Mg Tablet.dr, 5 MG PO DAILY Bupropion HCl (Bupropion HCl Sr) 150 Mg Tab, 150 MG PO BID, (Reported) Calcium Carbonate (Calcium) 600 Mg Tab, 600 MG PO BID, (Reported) Dantrolene Sodium (Dantrolene Sodium) 25 Mg Cap, 50 MG PO BID Lactobacillus Acidophilus (Probiotic Acidophilus) 1 Cap Cap, 1 CAP PO DAILY, (Reported) Multivitamin (Multivitamins) 1 Cap Cap, 1 CAP PO DAILY, (Reported) Omeprazole (Omeprazole) 20 Mg Tab, 20 MG PO BID, (Reported) Senna (Senna Lax) 8.6 Mg Tablet, 2 TAB PO QHS Sucralfate (Sucralfate) 1 Gm Tab, 1 GM PO BID Terazosin HCl (Terazosin HCl) 5 Mg Cap, 5 MG PO DAILY, (Reported) Tolterodine Tartrate (Tolterodine Tartrate ER) 4 Mg Cap, 4 MG PO DAILY, (Reported) Scheduled PRN Albuterol Sulf (Albuterol Sulfate) 2.5 Mg/3 Ml Nebu, 2.5 MGDR INH QIDP PRN for SHORTNESS OF BREATH, (Reported) Albuterol Sulfate (Ventolin Hfa) 108 Mcg/Act Aer, 2 PUFF INH Q4-6HP PRN for wheezing, (Reported) Aluminum/Magnesium/Simeth (Mag-Al Plus Suspension) 30 Ml Oral.susp, 30 ML PO Q4HP PRN for INDIGESTION Hydroxyzine HCl (Hydroxyzine HCl) 50 Mg Tab, 50 MG PO Q6HP PRN for ANXIETY Oxycodone/Acetaminophen (Oxycodone-Acetaminophen 5-325) 1 Each Tablet, 2 TAB PO Q8HP PRN for SEVERE PAIN (PS 8-10) Tramadol HCl (Tramadol HCl) 50 Mg Tablet, 50 MG PO Q6HP PRN for MODERATE PAIN (PS 5-7) Allergies Coded Allergies: morphine (Verified Adverse Reaction, Intermediate, nausea/vomiting, 10/22/19) A-FIB/CHADSVASC A-FIB History Current/History of A-Fib/PAF?: No STAR WRIGHT MD Nov 14, 2019 14:34
--- NOTE | 2019-11-14 16:24 | REP ---
Duplex extremity venous ultrasound: Bilateral lower extremities. History: Immobility. Traumatic quadriplegia. Rule out DVT. Findings: The deep veins are anechoic and fully compressible from the groin to the popliteal fossa in the left and right lower extremity. Color flow imaging is homogeneous. Spectral Doppler interrogation demonstrates intact respiratory variation in flow and normal manual augmentation of flow. There is no evidence of deep vein thrombosis. Impression: Negative bilateral lower extremity duplex venous ultrasound. No evidence of deep vein thrombosis. Electronically Signed by Jeremy Mahmood MD 11/14/2019 04:16 P
[2019-11-14] MEDS: TERAZOSIN 5 MG CAP PO SCH (20:35)
[2019-11-14] MEDS: DANTROLENE 25 MG CAP PO SCH (20:36)
[2019-11-14] MEDS: FLUTICASONE PROP 0.05% NASAL SPRAY 16 GM (FLONASE) NARES SCH (20:39)
[2019-11-14 21:00] VITALS: BP 109/63
[2019-11-15 06:45] VITALS: BP 143/83
[2019-11-15] MEDS: LACTOBACILLUS ACIDOPHILUS CAP (BACID) PO SCH (08:59)
[2019-11-15] MEDS: buPROPion **SR TABLET** (ZYBAN) 150MG PO SCH ×2 (08:59→20:41)
[2019-11-15] MEDS: TOLTERODINE TARTRATE 2 MG LA CAP (DETROL LA) PO SCH (08:59)
[2019-11-15] MEDS: ENOXAPARIN 40 MG/0.4 ML SYRINGE (J1650) SC SCH (08:59)
[2019-11-15] MEDS: BACLOFEN 10 MG TAB PO SCH ×3 (08:59→20:41)
[2019-11-15] MEDS: DANTROLENE 25 MG CAP PO SCH ×2 (08:59→20:41)
[2019-11-15] MEDS: SUCRALFATE 1 GM TAB PO SCH ×2 (08:59→17:33)
[2019-11-15] MEDS: ASCORBIC ACID 500 MG TAB PO SCH (09:00)
[2019-11-15] MEDS: BISACODYL 5 MG TAB PO SCH (09:00)
[2019-11-15] MEDS: ACETAMINOPHEN 500 MG TAB PO SCH ×3 (09:01→20:41)
[2019-11-15] MEDS: oxyCODONE 5MG TAB PO PRN ×4 (09:01→23:17)
[2019-11-15] MEDS: SODIUM CHLORIDE NASAL 0.65% SPRAY BTL (OCEAN) SCH ×3 (09:05→20:42)
[2019-11-15] MEDS: FLUTICASONE PROP 0.05% NASAL SPRAY 16 GM (FLONASE) NARES SCH ×2 (09:06→20:42)
--- NOTE | 2019-11-15 11:42 | IPNPDOC ---
PM&R Progress Note DATE OF SERVICE: Nov 15, 2019 [employer] Set Up Operator Progress Note Subjective: Patient reporting he is interested in obtaining pressure mapping for his wheelchair cushion. REVIEW OF SYSTEMS: The following is a completed review of systems and has been reviewed. Review of systems otherwise unremarkable. PAIN: Patient self reports left leg pain EYES: No recent vision changes EARS, NOSE, & THROAT: No throat pain, or dysphagia, or rhinorrhea CARDIOVASCULAR: Denies chest pain or palpitations PULMONARY: Denies shortness of breath GASTROINTESTINAL: Denies constipation/diarrhea GENITOURINARY: +SPC MUSCULOSKELETAL: +tetraplegia NEUROLOGICAL: +tetraplegia HEMATOLOGICAL: denies easy bruising SKIN: left ischial wound PSYCHIATRIC: Unremarkable All other review of systems found to be negative. PHYSICAL EXAMINATION: VITAL SIGNS: Please see below. GENERAL: Pleasant and cooperative. No acute distress. HEENT: PERRL. Extraocular movements intact. Clear conjunctiva CARDIOVASCULAR: Regular rate and rhythm. No murmurs, rubs, or gallops LUNGS: Clear to auscultation bilaterally. No wheezes. No rhonchi ABDOMEN: Soft, mildly-distended. Positive bowel sounds. NEUROLOGICAL: Alert and oriented times three. Cranial nerves II through XII grossly intact. Sensation diminished to light touch throughout all 4 limbs and trunk excluding C2-C5 dermatomes (+) bilat clonus EXTREMITIES: 4/5 bilat shoulder abduction and elbow flexion, 3/5 left wrist extension and 3+/5 right wrist extension, 0/5 for remainder of MMT exam SKIN: no skin breakdown bilat heels, left ischial wound c/d/i without induration/erythema ASSESSMENT: 39-year-old M with past medical history of C-6 complete tetraplegia who presents status post left ischial wound flap surgery. PLAN: 1. Rehab- PT- advance slide board transfers and bed mobility, over-teach pressure relief both in bed and while in the chair -OT advance ADL management for colostomy care, upper body dressing -[employer] equipment contacted for pressure mapping and will f/u with patient to schedule this 2. Neuro: s/p C6 complete tetraplegia since 2004, monitor for autonomic dysreflexia -tone/spasticity c/u baclofen and dantrium 3. Cardiac: no known Hx, monitor BPs 4. resp: encourage incentive spirometry, monitor for infection 5. Skin: s/p left ischial stage 4 wound debridement and flap- f/u with plastics, recs appreciated, daily dressing changes ordered 6. DVT ppx: c/u Lovenox during hospital stay since for post-op DVT prevention +IVC filter, admission doppler negative for DVT 7. GI ppx: sucralfate -bisacodyl tab po daily 8. Pain: Tylenol and oxycodone prn 9. Psych: c/u Bupropion and Atarax for anxiety 10. : +suprapubic catheter c/u Detrol and terazosin 11. Dispo: TBD Allergies Coded Allergies: morphine (Verified Adverse Reaction, Intermediate, nausea/vomiting, 10/22/19) Vital Signs Vital Signs Date Time Temp Pulse Resp B/P (MAP) Pulse Ox O2 Delivery O2 Flow Rate FiO2 11/15/19 09:31 16 11/15/19 06:45 97.8 62 143/83 (103) 98 Room Air Current Medications Current Medications Current Medications Medications (Trade) Dose Ordered Sig/Claudia Route PRN Reason Start Time Stop Time Status Last Admin Dose Admin Acetaminophen (Tylenol Tab) 1,000 mg TID PO 11/13/19 16:00 11/15/19 09:01 Albuterol Sulfate (Proventil Neb) 2.5 mg Q4HP PRN NEB SOB/WHEEZING 11/13/19 17:15 Ascorbic Acid (Vitamin C) 500 mg DAILY PO 11/14/19 09:00 11/15/19 09:00 Baclofen (Lioresal) 20 mg TID PO 11/13/19 16:00 11/15/19 08:59 Bisacodyl (Dulcolax Tab) 5 mg DAILY PO 11/14/19 09:00 11/15/19 09:00 Bupropion HCl (Zyban, Wellbutrin Sr) 150 mg BID PO 11/13/19 21:00 11/15/19 08:59 Dantrolene Sodium (Dantrium) 50 mg BID GT 11/13/19 21:00 11/14/19 08:58 DC 11/14/19 08:10 Dantrolene Sodium (Dantrium) 50 mg BID PO 11/14/19 21:00 11/15/19 08:59 Enoxaparin Sodium (Lovenox) 40 mg DAILY SC 11/14/19 09:00 11/15/19 08:59 Fluticasone Propionate (Flonase 0.05% Nasal [place]) 1 spray BID NARES 11/14/19 21:00 11/15/19 09:06 Hydroxyzine HCl (Atarax) 50 mg Q6HP PRN PO anxiety 11/13/19 17:15 11/14/19 20:35 Lactobacillus Acidophilus (Bacid) 1 ea DAILY PO 11/13/19 09:00 11/15/19 08:59 Lidocaine (Lidoderm Patch) 1 patch DAILY TD 11/14/19 09:00 11/13/19 17:43 DC Non-Formulary Medication ( See Comment Field Below ) REMOVE LIDODERM PATCH DAILY@ XX 11/13/19 21:00 11/13/19 17:44 DC Oxycodone HCl (Roxicodone, Oxyir) 5 mg Q4HP PRN PO PAIN 11/13/19 17:15 11/15/19 09:01 Sodium Chloride ([place] Nasal [place]) 2 spray TID NA 11/13/19 21:00 11/15/19 09:05 Sucralfate (Carafate) 1 gm BID@0730,1730 PO 11/13/19 17:30 11/15/19 08:59 Terazosin HCl (Hytrin) 5 mg QHS PO 11/13/19 21:00 11/14/19 20:35 Tolterodine Tartrate (Detrol La) 4 mg DAILY PO 11/14/19 09:00 11/15/19 08:59 STAR WRIGHT MD Nov 15, 2019 11:42
[2019-11-15] MEDS: hydrOXYzine 50 MG TAB PO PRN ×2 (12:18→20:40)
[2019-11-15 14:00] VITALS: BP 100/60
[2019-11-15 20:20] VITALS: BP 140/64
[2019-11-15] MEDS: TERAZOSIN 5 MG CAP PO SCH (20:42)
[2019-11-16] MEDS: oxyCODONE 5MG TAB PO PRN ×4 (05:11→23:34)
[2019-11-16] MEDS: hydrOXYzine 50 MG TAB PO PRN ×3 (05:11→19:34)
[2019-11-16 05:46] VITALS: BP 124/68
[2019-11-16 07:35] LABS: HEMATOCRIT 37.7 % (42.0-52.0); HEMOGLOBIN 12.4 g/dl (13.5-17.5); MEAN CORPUSCULAR HEMOGLOBIN 30.8 pg (27.0-33.0); MEAN CORPUSCULAR HGB CONC 32.9 g/dl (32.0-36.5); MEAN CORPUSCULAR VOLUME 93.5 fl (80.0-96.0); PLATELET COUNT, AUTOMATED 258 10^3/uL (150-450); RED BLOOD COUNT 4.03 10^6/uL (4.30-6.10); WHITE BLOOD COUNT 4.4 10^3/uL (4.0-10.0)
[2019-11-16 08:02] LABS: BLOOD UREA NITROGEN 16 MG/DL (7-18); CALCIUM LEVEL 8.2 MG/DL (8.5-10.1); CARBON DIOXIDE LEVEL 25 MEQ/L (21-32); CHLORIDE LEVEL 110 MEQ/L (98-107); CREATININE FOR GFR 0.46 MG/DL (0.70-1.30); GLOMERULAR FILTRATION RATE > 60.0 (>60); GLUCOSE, FASTING 88 MG/DL (70-100); POTASSIUM SERUM 3.5 MEQ/L (3.5-5.1); SODIUM LEVEL 141 MEQ/L (136-145)
[2019-11-16] MEDS: ENOXAPARIN 40 MG/0.4 ML SYRINGE (J1650) SC SCH (08:45)
[2019-11-16] MEDS: ASCORBIC ACID 500 MG TAB PO SCH (08:46)
[2019-11-16] MEDS: TOLTERODINE TARTRATE 2 MG LA CAP (DETROL LA) PO SCH (08:46)
[2019-11-16] MEDS: ACETAMINOPHEN 500 MG TAB PO SCH ×3 (08:46→20:38)
[2019-11-16] MEDS: DANTROLENE 25 MG CAP PO SCH ×2 (08:46→20:38)
[2019-11-16] MEDS: BACLOFEN 10 MG TAB PO SCH ×3 (08:46→20:37)
[2019-11-16] MEDS: SUCRALFATE 1 GM TAB PO SCH ×2 (08:46→16:39)
[2019-11-16] MEDS: LACTOBACILLUS ACIDOPHILUS CAP (BACID) PO SCH (08:46)
[2019-11-16] MEDS: buPROPion **SR TABLET** (ZYBAN) 150MG PO SCH ×2 (08:46→20:38)
[2019-11-16] MEDS: BISACODYL 5 MG TAB PO SCH (08:46)
[2019-11-16] MEDS: SODIUM CHLORIDE NASAL 0.65% SPRAY BTL (OCEAN) SCH ×3 (08:47→20:37)
[2019-11-16] MEDS: FLUTICASONE PROP 0.05% NASAL SPRAY 16 GM (FLONASE) NARES SCH ×2 (08:47→20:37)
[2019-11-16 14:00] VITALS: BP 150/70
[2019-11-16 20:00] VITALS: BP 129/58
[2019-11-16] MEDS: TERAZOSIN 5 MG CAP PO SCH (20:37)
[2019-11-17 06:13] VITALS: BP 118/60
[2019-11-17] MEDS: hydrOXYzine 50 MG TAB PO PRN ×3 (06:19→22:09)
[2019-11-17] MEDS: oxyCODONE 5MG TAB PO PRN ×3 (06:20→22:08)
[2019-11-17] MEDS: ENOXAPARIN 40 MG/0.4 ML SYRINGE (J1650) SC SCH (07:54)
[2019-11-17] MEDS: BACLOFEN 10 MG TAB PO SCH ×3 (07:55→22:09)
[2019-11-17] MEDS: LACTOBACILLUS ACIDOPHILUS CAP (BACID) PO SCH (07:55)
[2019-11-17] MEDS: ACETAMINOPHEN 500 MG TAB PO SCH ×3 (07:55→22:05)
[2019-11-17] MEDS: SUCRALFATE 1 GM TAB PO SCH ×2 (07:56→17:31)
[2019-11-17] MEDS: BISACODYL 5 MG TAB PO SCH (07:56)
[2019-11-17] MEDS: buPROPion **SR TABLET** (ZYBAN) 150MG PO SCH ×2 (07:56→22:05)
[2019-11-17] MEDS: ASCORBIC ACID 500 MG TAB PO SCH (07:56)
[2019-11-17] MEDS: DANTROLENE 25 MG CAP PO SCH ×2 (07:56→22:09)
[2019-11-17] MEDS: TOLTERODINE TARTRATE 2 MG LA CAP (DETROL LA) PO SCH (07:56)
[2019-11-17] MEDS: SODIUM CHLORIDE NASAL 0.65% SPRAY BTL (OCEAN) SCH ×3 (07:57→22:11)
[2019-11-17] MEDS: FLUTICASONE PROP 0.05% NASAL SPRAY 16 GM (FLONASE) NARES SCH ×2 (07:57→22:11)
[2019-11-17 14:00] VITALS: BP 120/69
[2019-11-17 19:50] VITALS: BP 100/58
[2019-11-17] MEDS: TERAZOSIN 5 MG CAP PO SCH (22:06)
[2019-11-18 06:00] VITALS: BP 118/80
[2019-11-18] MEDS: hydrOXYzine 50 MG TAB PO PRN ×3 (06:43→22:52)
[2019-11-18] MEDS: SUCRALFATE 1 GM TAB PO SCH ×2 (06:43→17:43)
[2019-11-18] MEDS: oxyCODONE 5MG TAB PO PRN ×3 (06:43→21:11)
[2019-11-18] MEDS: LACTOBACILLUS ACIDOPHILUS CAP (BACID) PO SCH (09:00)
[2019-11-18] MEDS: ACETAMINOPHEN 500 MG TAB PO SCH ×3 (10:51→21:10)
[2019-11-18] MEDS: BACLOFEN 10 MG TAB PO SCH ×3 (10:53→21:10)
[2019-11-18] MEDS: TOLTERODINE TARTRATE 2 MG LA CAP (DETROL LA) PO SCH (10:54)
[2019-11-18] MEDS: DANTROLENE 25 MG CAP PO SCH ×2 (10:56→21:09)
[2019-11-18] MEDS: BISACODYL 5 MG TAB PO SCH (10:59)
[2019-11-18] MEDS: ASCORBIC ACID 500 MG TAB PO SCH (10:59)
[2019-11-18] MEDS: ENOXAPARIN 40 MG/0.4 ML SYRINGE (J1650) SC SCH (11:00)
[2019-11-18] MEDS: buPROPion **SR TABLET** (ZYBAN) 150MG PO SCH ×2 (11:00→21:09)
[2019-11-18] MEDS: SODIUM CHLORIDE NASAL 0.65% SPRAY BTL (OCEAN) SCH ×3 (11:01→21:11)
[2019-11-18] MEDS: FLUTICASONE PROP 0.05% NASAL SPRAY 16 GM (FLONASE) NARES SCH ×2 (11:02→21:11)
[2019-11-18 14:00] VITALS: BP 109/76
--- NOTE | 2019-11-18 17:01 | REP ---
Urinary tract sonogram: History: History of kidney stones. Back pain. Comparison: No comparison study. Findings: Scanning at the level of the urinary bladder shows no abnormality. The patient has an indwelling suprapubic catheter. Calculated bladder volume of 49.5 ml. Renal cortical echogenicity pattern is normal bilaterally and contours are smooth. There is no evidence of hydronephrosis, cyst, mass, or calculus in either kidney. The right kidney measures 9.6 x 4.3 x 4.8 cm. Left renal dimensions are 10.4 x 4.4 x 4.8 cm. Impression: Normal urinary tract sonography. Electronically Signed by Jeremy Mahmood MD 11/18/2019 04:52 P
[2019-11-18 20:00] VITALS: BP 105/68
[2019-11-18] MEDS: TERAZOSIN 5 MG CAP PO SCH (21:09)
[2019-11-19 06:22] VITALS: BP 127/76
[2019-11-19 06:45] LABS: HEMATOCRIT 40.2 % (42.0-52.0); HEMOGLOBIN 13.4 g/dl (13.5-17.5); MEAN CORPUSCULAR HEMOGLOBIN 31.4 pg (27.0-33.0); MEAN CORPUSCULAR HGB CONC 33.3 g/dl (32.0-36.5); MEAN CORPUSCULAR VOLUME 94.1 fl (80.0-96.0); PLATELET COUNT, AUTOMATED 253 10^3/uL (150-450); RED BLOOD COUNT 4.27 10^6/uL (4.30-6.10); WHITE BLOOD COUNT 4.9 10^3/uL (4.0-10.0)
[2019-11-19 07:22] LABS: BLOOD UREA NITROGEN 13 MG/DL (7-18); CALCIUM LEVEL 8.6 MG/DL (8.5-10.1); CARBON DIOXIDE LEVEL 23 MEQ/L (21-32); CHLORIDE LEVEL 112 MEQ/L (98-107); CREATININE FOR GFR 0.45 MG/DL (0.70-1.30); GLOMERULAR FILTRATION RATE > 60.0 (>60); GLUCOSE, FASTING 92 MG/DL (70-100); POTASSIUM SERUM 3.7 MEQ/L (3.5-5.1); SODIUM LEVEL 141 MEQ/L (136-145)
[2019-11-19] MEDS: ASCORBIC ACID 500 MG TAB PO SCH (09:23)
[2019-11-19] MEDS: ENOXAPARIN 40 MG/0.4 ML SYRINGE (J1650) SC SCH (09:23)
[2019-11-19] MEDS: DANTROLENE 25 MG CAP PO SCH ×2 (09:23→20:21)
[2019-11-19] MEDS: LACTOBACILLUS ACIDOPHILUS CAP (BACID) PO SCH (09:23)
[2019-11-19] MEDS: SUCRALFATE 1 GM TAB PO SCH ×2 (09:23→17:30)
[2019-11-19] MEDS: TOLTERODINE TARTRATE 2 MG LA CAP (DETROL LA) PO SCH (09:23)
[2019-11-19] MEDS: hydrOXYzine 50 MG TAB PO PRN ×2 (09:24→18:08)
[2019-11-19] MEDS: buPROPion **SR TABLET** (ZYBAN) 150MG PO SCH ×2 (09:24→20:21)
[2019-11-19] MEDS: ACETAMINOPHEN 500 MG TAB PO SCH ×3 (09:24→21:56)
[2019-11-19] MEDS: oxyCODONE 5MG TAB PO PRN ×3 (09:25→23:33)
[2019-11-19] MEDS: BACLOFEN 10 MG TAB PO SCH ×3 (09:26→20:21)
[2019-11-19] MEDS: SODIUM CHLORIDE NASAL 0.65% SPRAY BTL (OCEAN) SCH ×3 (09:26→21:56)
[2019-11-19] MEDS: BISACODYL 5 MG TAB PO SCH (09:26)
[2019-11-19] MEDS: FLUTICASONE PROP 0.05% NASAL SPRAY 16 GM (FLONASE) NARES SCH ×2 (09:26→21:56)
[2019-11-19 14:00] VITALS: BP 95/50
--- NOTE | 2019-11-19 15:07 | IPNPDOC ---
PM&R Progress Note DATE OF SERVICE: Nov 18, 2019 Policyholder Information Clerk Progress Note Subjective: Patient reporting he was having bladder spasms over the weekend and low back pain and is concerned he might have a UTI or something wrong with his kidneys. REVIEW OF SYSTEMS: The following is a completed review of systems and has been reviewed. Review of systems otherwise unremarkable. PAIN: Patient self reports left leg pain EYES: No recent vision changes EARS, NOSE, & THROAT: No throat pain, or dysphagia, or rhinorrhea CARDIOVASCULAR: Denies chest pain or palpitations PULMONARY: Denies shortness of breath GASTROINTESTINAL: Denies constipation/diarrhea GENITOURINARY: +SPC MUSCULOSKELETAL: +tetraplegia NEUROLOGICAL: +tetraplegia HEMATOLOGICAL: denies easy bruising SKIN: left ischial wound PSYCHIATRIC: Unremarkable All other review of systems found to be negative. PHYSICAL EXAMINATION: VITAL SIGNS: Please see below. GENERAL: Pleasant and cooperative. No acute distress. HEENT: PERRL. Extraocular movements intact. Clear conjunctiva CARDIOVASCULAR: Regular rate and rhythm. No murmurs, rubs, or gallops LUNGS: Clear to auscultation bilaterally. No wheezes. No rhonchi ABDOMEN: Soft, mildly-distended. Positive bowel sounds. NEUROLOGICAL: Alert and oriented times three. Cranial nerves II through XII grossly intact. Sensation diminished to light touch throughout all 4 limbs and trunk excluding C2-C5 dermatomes (+) bilat clonus EXTREMITIES: 4/5 bilat shoulder abduction and elbow flexion, 3/5 left wrist extension and 3+/5 right wrist extension, 0/5 for remainder of MMT exam SKIN: no skin breakdown bilat heels, left ischial wound c/d/i without induration/erythema ASSESSMENT: 39-year-old M with past medical history of C-6 complete tetraplegia who presents status post left ischial wound flap surgery. PLAN: 1. Rehab- PT- advance slide board transfers and bed mobility, over-teach pressure relief both in bed and while in the chair -OT advance ADL management for colostomy care, upper body dressing -[employer] equipment contacted for pressure mapping and will f/u with patient to schedule this 2. Neuro: s/p C6 complete tetraplegia since 2004, monitor for autonomic dysreflexia -tone/spasticity c/u baclofen and dantrium 3. Cardiac: no known Hx, monitor BPs 4. resp: encourage incentive spirometry, monitor for infection 5. Skin: s/p left ischial stage 4 wound debridement and flap- f/u with plastics, recs appreciated, daily dressing changes ordered 6. DVT ppx: c/u Lovenox during hospital stay since for post-op DVT prevention +IVC filter, admission doppler negative for DVT 7. GI ppx: sucralfate -bisacodyl tab po daily 8. Pain: Tylenol and oxycodone prn 9. Psych: c/u Bupropion and Atarax for anxiety 10. : +suprapubic catheter c/u Detrol and terazosin -Renal US ordered and UA 11. Dispo: TBD Allergies Coded Allergies: morphine (Verified Adverse Reaction, Intermediate, nausea/vomiting, 10/22/19) Vital Signs Vital Signs Date Time Temp Pulse Resp B/P (MAP) Pulse Ox O2 Delivery O2 Flow Rate FiO2 11/19/19 14:02 16 11/19/19 06:22 98.0 76 127/76 (93) 96 Room Air Laboratory Data CBC/BMP Laboratory Tests 11/19/19 06:35 Labs 24H Laboratory Tests 2 11/18/19 21:21: Urine Color YELLOW, Urine Appearance HAZY, Urine pH 5.0, Urine Specific [place] 1.014, Urine Protein NEGATIVE, Urine Glucose (UA) NEGATIVE, Urine Ketones NEGATIVE, Urine Blood NEGATIVE, Urine Nitrite POSITIVEH, Urine Bilirubin NEGATIVE, Urine Urobilinogen 0.2, Urine Leukocyte Esterase 3+H, Urine WBC (Auto) 57H, Urine RBC (Auto) 7H, Urine Hyaline Casts (Auto) 0, Urine Bacteria (Auto) 3+H, Urine Squamous Epithelial Cells 2, Urine Transitional Epithelial Cells <1, Urine Mucus (Auto) SMALL, Urine Sperm (Auto) 11/19/19 06:35: Nucleated Red Blood Cells % (auto) 0.0, Anion Gap 6L, Glomerular Filtration Rate > 60.0, Calcium Level 8.6 Microbiology Microbiology 11/18/19 Urine Culture, Received Pending Current Medications Current Medications Current Medications Medications (Trade) Dose Ordered Sig/Claudia Route PRN Reason Start Time Stop Time Status Last Admin Dose Admin Acetaminophen (Tylenol Tab) 1,000 mg TID PO 11/13/19 16:00 11/19/19 09:24 Albuterol Sulfate (Proventil Neb) 2.5 mg Q4HP PRN NEB SOB/WHEEZING 11/13/19 17:15 Ascorbic Acid (Vitamin C) 500 mg DAILY PO 11/14/19 09:00 11/19/19 09:23 Baclofen (Lioresal) 20 mg TID PO 11/13/19 16:00 11/19/19 09:26 Bisacodyl (Dulcolax Tab) 5 mg DAILY PO 11/14/19 09:00 11/19/19 09:26 Bupropion HCl (Zyban, Wellbutrin Sr) 150 mg BID PO 11/13/19 21:00 11/19/19 09:24 Dantrolene Sodium (Dantrium) 50 mg BID GT 11/13/19 21:00 11/14/19 08:58 DC 11/14/19 08:10 Dantrolene Sodium (Dantrium) 50 mg BID PO 11/14/19 21:00 11/19/19 09:23 Enoxaparin Sodium (Lovenox) 40 mg DAILY SC 11/14/19 09:00 11/19/19 09:23 Fluticasone Propionate (Flonase 0.05% Nasal [place]) 1 spray BID NARES 11/14/19 21:00 11/19/19 09:26 Hydroxyzine HCl (Atarax) 50 mg Q6HP PRN PO anxiety 11/13/19 17:15 11/19/19 09:24 Lactobacillus Acidophilus (Bacid) 1 ea DAILY PO 11/13/19 09:00 11/19/19 09:23 Lidocaine (Lidoderm Patch) 1 patch DAILY TD 11/14/19 09:00 11/13/19 17:43 DC Non-Formulary Medication ( See Comment Field Below ) REMOVE LIDODERM PATCH DAILY@21 XX 11/13/19 21:00 11/13/19 17:44 DC Oxycodone HCl (Roxicodone, Oxyir) 5 mg Q4HP PRN PO PAIN 11/13/19 17:15 11/19/19 14:02 Sodium Chloride ([place] Nasal [place]) 2 spray TID NA 11/13/19 21:00 11/19/19 09:26 Sucralfate (Carafate) 1 gm BID@0730,1730 PO 11/13/19 17:30 11/19/19 09:23 Terazosin HCl (Hytrin) 5 mg QHS PO 11/13/19 21:00 11/18/19 21:09 Tolterodine Tartrate (Detrol La) 4 mg DAILY PO 11/14/19 09:00 11/19/19 09:23 STAR WRIGHT MD Nov 19, 2019 15:07
--- NOTE | 2019-11-19 15:11 | IPNPDOC ---
PM&R Progress Note DATE OF SERVICE: Nov 19, 2019 Corporate Attorney Progress Note Subjective: Patient concerned about drainage on his sacral bandage, after changing he was reassure his incision is completely intact and the drainage was scant. REVIEW OF SYSTEMS: The following is a completed review of systems and has been reviewed. Review of systems otherwise unremarkable. PAIN: Patient self reports left leg pain EYES: No recent vision changes EARS, NOSE, & THROAT: No throat pain, or dysphagia, or rhinorrhea CARDIOVASCULAR: Denies chest pain or palpitations PULMONARY: Denies shortness of breath GASTROINTESTINAL: Denies constipation/diarrhea GENITOURINARY: +SPC MUSCULOSKELETAL: +tetraplegia NEUROLOGICAL: +tetraplegia HEMATOLOGICAL: denies easy bruising SKIN: left ischial wound PSYCHIATRIC: Unremarkable All other review of systems found to be negative. PHYSICAL EXAMINATION: VITAL SIGNS: Please see below. GENERAL: Pleasant and cooperative. No acute distress. HEENT: PERRL. Extraocular movements intact. Clear conjunctiva CARDIOVASCULAR: Regular rate and rhythm. No murmurs, rubs, or gallops LUNGS: Clear to auscultation bilaterally. No wheezes. No rhonchi ABDOMEN: Soft, mildly-distended. Positive bowel sounds. NEUROLOGICAL: Alert and oriented times three. Cranial nerves II through XII grossly intact. Sensation diminished to light touch throughout all 4 limbs and trunk excluding C2-C5 dermatomes (+) bilat clonus EXTREMITIES: 4/5 bilat shoulder abduction and elbow flexion, 3/5 left wrist extension and 3+/5 right wrist extension, 0/5 for remainder of MMT exam SKIN: no skin breakdown bilat heels, left ischial wound c/d/i without induration/erythema ASSESSMENT: 39-year-old M with past medical history of C-6 complete tetraplegia who presents status post left ischial wound flap surgery. PLAN: 1. Rehab- PT- advance slide board transfers and bed mobility, over-teach pressure relief both in bed and while in the chair -OT advance ADL management for colostomy care, upper body dressing -[facility] [facility] equipment contacted for pressure mapping and will f/u with patient to schedule this 2. Neuro: s/p C6 complete tetraplegia since 2004, monitor for autonomic dysreflexia -tone/spasticity c/u baclofen and dantrium 3. Cardiac: no known Hx, monitor BPs 4. resp: encourage incentive spirometry, monitor for infection 5. Skin: s/p left ischial stage 4 wound debridement and flap- f/u with plastics, recs appreciated, daily dressing changes ordered 6. DVT ppx: c/u Lovenox during hospital stay since for post-op DVT prevention +IVC filter, admission doppler negative for DVT 7. GI ppx: sucralfate -bisacodyl tab po daily 8. Pain: Tylenol and oxycodone prn 9. Psych: c/u Bupropion and Atarax for anxiety 10. : +suprapubic catheter c/u Detrol and terazosin -Renal US shows no hydronephrosis or cysts, UA +LE and nitrites, suspect colonization, patient reporting his bladder spasms are controlled by drinking more fluids in the morning, will consult Dr. Tinajero on whether to start antibiotics at tis time 11. Dispo: 11-22-19 to home, progressing towards goals Allergies Coded Allergies: morphine (Verified Adverse Reaction, Intermediate, nausea/vomiting, 10/22/19) Vital Signs Vital Signs Date Time Temp Pulse Resp B/P (MAP) Pulse Ox O2 Delivery O2 Flow Rate FiO2 11/19/19 14:02 16 11/19/19 06:22 98.0 76 127/76 (93) 96 Room Air Laboratory Data CBC/BMP Laboratory Tests 11/19/19 06:35 Labs 24H Laboratory Tests 2 11/18/19 21:21: Urine Color YELLOW, Urine Appearance HAZY, Urine pH 5.0, Urine Specific [place] 1.014, Urine Protein NEGATIVE, Urine Glucose (UA) NEGATIVE, Urine Ketones NEGATIVE, Urine Blood NEGATIVE, Urine Nitrite POSITIVEH, Urine Bilirubin NEGATIVE, Urine Urobilinogen 0.2, Urine Leukocyte Esterase 3+H, Urine WBC (Auto) 57H, Urine RBC (Auto) 7H, Urine Hyaline Casts (Auto) 0, Urine Bacteria (Auto) 3+H, Urine Squamous Epithelial Cells 2, Urine Transitional Epithelial Cells <1, Urine Mucus (Auto) SMALL, Urine Sperm (Auto) 11/19/19 06:35: Nucleated Red Blood Cells % (auto) 0.0, Anion Gap 6L, Glomerular Filtration Rate > 60.0, Calcium Level 8.6 Microbiology Microbiology 11/18/19 Urine Culture, Received Pending Current Medications Current Medications Current Medications Medications (Trade) Dose Ordered Sig/Claudia Route PRN Reason Start Time Stop Time Status Last Admin Dose Admin Acetaminophen (Tylenol Tab) 1,000 mg TID PO 11/13/19 16:00 11/19/19 09:24 Albuterol Sulfate (Proventil Neb) 2.5 mg Q4HP PRN NEB SOB/WHEEZING 11/13/19 17:15 Ascorbic Acid (Vitamin C) 500 mg DAILY PO 11/14/19 09:00 11/19/19 09:23 Baclofen (Lioresal) 20 mg TID PO 11/13/19 16:00 11/19/19 09:26 Bisacodyl (Dulcolax Tab) 5 mg DAILY PO 11/14/19 09:00 11/19/19 09:26 Bupropion HCl (Zyban, Wellbutrin Sr) 150 mg BID PO 11/13/19 21:00 11/19/19 09:24 Dantrolene Sodium (Dantrium) 50 mg BID GT 11/13/19 21:00 11/14/19 08:58 DC 11/14/19 08:10 Dantrolene Sodium (Dantrium) 50 mg BID PO 11/14/19 21:00 11/19/19 09:23 Enoxaparin Sodium (Lovenox) 40 mg DAILY SC 11/14/19 09:00 11/19/19 09:23 Fluticasone Propionate (Flonase 0.05% Nasal [place]) 1 spray BID NARES 11/14/19 21:00 11/19/19 09:26 Hydroxyzine HCl (Atarax) 50 mg Q6HP PRN PO anxiety 11/13/19 17:15 11/19/19 09:24 Lactobacillus Acidophilus (Bacid) 1 ea DAILY PO 11/13/19 09:00 11/19/19 09:23 Lidocaine (Lidoderm Patch) 1 patch DAILY TD 11/14/19 09:00 11/13/19 17:43 DC Non-Formulary Medication ( See Comment Field Below ) REMOVE LIDODERM PATCH DAILY@21 XX 11/13/19 21:00 11/13/19 17:44 DC Oxycodone HCl (Roxicodone, Oxyir) 5 mg Q4HP PRN PO PAIN 11/13/19 17:15 11/19/19 14:02 Sodium Chloride ([place] Nasal [place]) 2 spray TID NA 11/13/19 21:00 11/19/19 09:26 Sucralfate (Carafate) 1 gm BID@8014,9700 PO 11/13/19 17:30 11/19/19 09:23 Terazosin HCl (Hytrin) 5 mg QHS PO 11/13/19 21:00 11/18/19 21:09 Tolterodine Tartrate (Detrol La) 4 mg DAILY PO 11/14/19 09:00 11/19/19 09:23 STAR WRIGHT MD Nov 19, 2019 15:11
[2019-11-19 20:00] VITALS: BP 102/55
[2019-11-19] MEDS: TERAZOSIN 5 MG CAP PO SCH (20:23)
[2019-11-20] MEDS: hydrOXYzine 50 MG TAB PO PRN ×4 (01:04→21:13)
[2019-11-20 06:00] VITALS: BP 132/77
[2019-11-20] MEDS: ACETAMINOPHEN 500 MG TAB PO SCH ×3 (09:06→21:10)
[2019-11-20] MEDS: ENOXAPARIN 40 MG/0.4 ML SYRINGE (J1650) SC SCH (09:06)
[2019-11-20] MEDS: buPROPion **SR TABLET** (ZYBAN) 150MG PO SCH ×2 (09:07→21:10)
[2019-11-20] MEDS: BACLOFEN 10 MG TAB PO SCH ×3 (09:07→21:13)
[2019-11-20] MEDS: LACTOBACILLUS ACIDOPHILUS CAP (BACID) PO SCH (09:07)
[2019-11-20] MEDS: TOLTERODINE TARTRATE 2 MG LA CAP (DETROL LA) PO SCH (09:07)
[2019-11-20] MEDS: SUCRALFATE 1 GM TAB PO SCH ×2 (09:07→17:07)
[2019-11-20] MEDS: BISACODYL 5 MG TAB PO SCH (09:07)
[2019-11-20] MEDS: DANTROLENE 25 MG CAP PO SCH ×2 (09:07→21:13)
[2019-11-20] MEDS: ASCORBIC ACID 500 MG TAB PO SCH (09:07)
[2019-11-20] MEDS: SODIUM CHLORIDE NASAL 0.65% SPRAY BTL (OCEAN) SCH ×3 (09:08→21:13)
[2019-11-20] MEDS: oxyCODONE 5MG TAB PO PRN ×3 (09:08→21:12)
[2019-11-20] MEDS: FLUTICASONE PROP 0.05% NASAL SPRAY 16 GM (FLONASE) NARES SCH ×2 (09:08→21:13)
[2019-11-20 14:00] VITALS: BP 102/61
--- NOTE | 2019-11-20 16:05 | IPNPDOC ---
PM&R Progress Note DATE OF SERVICE: Nov 20, 2019 Special Librarian Progress Note Subjective: Patient reporting he feels well today, however has some bilateral shoulder soreness. REVIEW OF SYSTEMS: The following is a completed review of systems and has been reviewed. Review of systems otherwise unremarkable. PAIN: Patient self reports left leg pain EYES: No recent vision changes EARS, NOSE, & THROAT: No throat pain, or dysphagia, or rhinorrhea CARDIOVASCULAR: Denies chest pain or palpitations PULMONARY: Denies shortness of breath GASTROINTESTINAL: Denies constipation/diarrhea GENITOURINARY: +SPC MUSCULOSKELETAL: +tetraplegia NEUROLOGICAL: +tetraplegia HEMATOLOGICAL: denies easy bruising SKIN: left ischial wound PSYCHIATRIC: Unremarkable All other review of systems found to be negative. PHYSICAL EXAMINATION: VITAL SIGNS: Please see below. GENERAL: Pleasant and cooperative. No acute distress. HEENT: PERRL. Extraocular movements intact. Clear conjunctiva CARDIOVASCULAR: Regular rate and rhythm. No murmurs, rubs, or gallops LUNGS: Clear to auscultation bilaterally. No wheezes. No rhonchi ABDOMEN: Soft, mildly-distended. Positive bowel sounds. NEUROLOGICAL: Alert and oriented times three. Cranial nerves II through XII grossly intact. Sensation diminished to light touch throughout all 4 limbs and trunk excluding C2-C5 dermatomes (+) bilat clonus EXTREMITIES: 4/5 bilat shoulder abduction and elbow flexion, 3/5 left wrist extension and 3+/5 right wrist extension, 0/5 for remainder of MMT exam SKIN: no skin breakdown bilat heels, left ischial wound c/d/i without induration/erythema ASSESSMENT: 39-year-old M with past medical history of C-6 complete tetraplegia who presents status post left ischial wound flap surgery. PLAN: 1. Rehab- PT- advance slide board transfers and bed mobility, over-teach pressure relief both in bed and while in the chair -OT advance ADL management for colostomy care, upper body dressing -[employer] [facility] equipment contacted for pressure mapping and will f/u with patient to schedule this 2. Neuro: s/p C6 complete tetraplegia since 2004, monitor for autonomic dysref lexia -tone/spasticity c/u baclofen and dantrium 3. Cardiac: no known Hx, monitor BPs 4. resp: encourage incentive spirometry, monitor for infection 5. Skin: s/p left ischial stage 4 wound debridement and flap- f/u with plastics, recs appreciated, daily dressing changes ordered 6. DVT ppx: c/u Lovenox during hospital stay since for post-op DVT prevention +IVC filter, admission doppler negative for DVT 7. GI ppx: sucralfate -bisacodyl tab po daily 8. Pain: Tylenol and oxycodone prn 9. Psych: c/u Bupropion and Atarax for anxiety 10. : +suprapubic catheter c/u Detrol and terazosin -Renal US shows no hydronephrosis or cysts, UA +LE and nitrites, suspect colonization, patient reporting his bladder spasms are controlled by drinking more fluids in the morning, Dr. Tinajero consulted 11. Dispo: 11-22-19 to home, progressing towards goals Allergies Coded Allergies: morphine (Verified Adverse Reaction, Intermediate, nausea/vomiting, 10/22/19) Vital Signs Vital Signs Date Time Temp Pulse Resp B/P (MAP) Pulse Ox O2 Delivery O2 Flow Rate FiO2 11/20/19 15:21 16 11/20/19 14:00 97.5 69 102/61 (75) 98 Room Air Microbiology Microbiology 11/18/19 Urine Culture, Received Pending Current Medications Current Medications Current Medications Medications (Trade) Dose Ordered Sig/Claudia Route PRN Reason Start Time Stop Time Status Last Admin Dose Admin Acetaminophen (Tylenol Tab) 1,000 mg TID PO 11/13/19 16:00 11/20/19 15:20 Albuterol Sulfate (Proventil Neb) 2.5 mg Q4HP PRN NEB SOB/WHEEZING 11/13/19 17:15 Ascorbic Acid (Vitamin C) 500 mg DAILY PO 11/14/19 09:00 11/20/19 09:07 Baclofen (Lioresal) 20 mg TID PO 11/13/19 16:00 11/20/19 15:25 Bisacodyl (Dulcolax Tab) 5 mg DAILY PO 11/14/19 09:00 11/20/19 09:07 Bupropion HCl (Zyban, Wellbutrin Sr) 150 mg BID PO 11/13/19 21:00 11/20/19 09:07 Dantrolene Sodium (Dantrium) 50 mg BID GT 11/13/19 21:00 11/14/19 08:58 DC 11/14/19 08:10 Dantrolene Sodium (Dantrium) 50 mg BID PO 11/14/19 21:00 11/20/19 09:07 Enoxaparin Sodium (Lovenox) 40 mg DAILY SC 11/14/19 09:00 11/20/19 13:03 DC 11/20/19 09:06 Fluticasone Propionate (Flonase 0.05% Nasal [place]) 1 spray BID NARES 11/14/19 21:00 11/20/19 09:08 Hydroxyzine HCl (Atarax) 50 mg Q6HP PRN PO anxiety 11/13/19 17:15 11/20/19 15:20 Lactobacillus Acidophilus (Bacid) 1 ea DAILY PO 11/13/19 09:00 11/20/19 09:07 Lidocaine (Lidoderm Patch) 1 patch DAILY TD 11/14/19 09:00 11/13/19 17:43 DC Miscellaneous (Unresolved Clarification Entry) SEE LABEL COMMENTS DAILY XX 11/20/19 09:00 11/20/19 13:03 DC Non-Formulary Medication ( See Comment Field Below ) REMOVE LIDODERM PATCH DAILY@21 XX 11/13/19 21:00 11/13/19 17:44 DC Oxycodone HCl (Roxicodone, Oxyir) 5 mg Q4HP PRN PO PAIN 11/13/19 17:15 11/20/19 15:21 Sodium Chloride ([place] Nasal Ignacio) 2 spray TID NA 11/13/19 21:00 11/20/19 15:23 Sucralfate (Carafate) 1 gm BID@0730,1730 PO 11/13/19 17:30 11/20/19 09:07 Terazosin HCl (Hytrin) 5 mg QHS PO 11/13/19 21:00 11/19/19 20:23 Tolterodine Tartrate (Detrol La) 4 mg DAILY PO 11/14/19 09:00 11/20/19 09:07 STAR WRIGHT MD Nov 20, 2019 16:05
[2019-11-20 21:12] VITALS: BP 105/59
[2019-11-20] MEDS: TERAZOSIN 5 MG CAP PO SCH (21:12)
[2019-11-21 05:54] VITALS: BP 104/62
--- NOTE | 2019-11-21 05:54 | CR ---
DATE OF CONSULTATION: 11/19/2019 REASON FOR CONSULTATION: Recurrent urinary tract infection. REFERRING PHYSICIAN: Dr. Mark Sanderson. 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 The patient has a suprapubic catheter since 2007 and a diverting colostomy [place] [address] Steiner. He was hospitalized for sacral osteomyelitis in [address] Baird. He was admitted on October 22 for left ischial flap surgery for stage IV wound. The patient was treated while in the acute floor with cefazolin from October 22- and from October 25- with IV Rocephin. His wound culture intraoperatively was positive for group G Streptococcus, Escherichia coli (E-coli) and Prevotella. He remained afebrile. The wound has healed very nicely and he was transferred to acute rehab on November 12. The patient over the week started complaining of some increased bladder spasms which he relates to his urinary tract infection. He noted that his urine was more cloudy but he did not have any fever or chills and did not have a white count. There was some concern about a recurrent urinary tract infection but the patient stated after he drank for a couple days more water his symptoms have improved. He states he has many urinary tract infections (UTIs) in a year but he does not usually take antibiotics except maybe two or three times. He has Macrobid and ciprofloxacin on board at hand from his urologist, Dr. Khan and he states that he decide whether to use one or the other based on the smell of the urine. PAST MEDICAL HISTORY: His past medical history is significant for traumatic spinal cord injury with tetraplegia at C6, history of osteomyelitis of the left ischium, MRSA, recurrent urinary tract infection. PAST SURGICAL HISTORY: 1. Tracheostomy 2004. 2. Left hip partial resection. 3. Cervical fusion. 4. Inferior vena cava (IVC) filter and 2004. MEDICATIONS: - Dantrolene 50 mg by mouth twice a day - fluticasone 1 spray twice a day - Dulcolax 5 mg by mouth daily - vitamin C 500 mg by mouth daily - Detrol LA 4 mg by mouth daily - Zyban 150 mg by mouth twice a day - Slick spray nasal spray - terazosin 5 mg by mouth nightly - Carafate 1 gram by mouth twice a day - albuterol 2.5 mg every 4 as needed - hydroxyzine as needed for anxiety - probiotics 1 tablet daily ALLERGIES: MORPHINE. LABORATORY DATA: White count is 4.9, hemoglobin 13.4, hematocrit 40.2, platelets 253. Sodium 141, potassium 3.7, chloride 112, bicarb 23, BUN 13, creatinine 0.45, glucose 92, calcium 8.6, AST 14, ALT 35, alkaline phosphatase 92, total protein 6.7. Urinalysis has +3 leukocyte esterase, 57 white cells, 87red cells, zero hyaline casts, +3 bacteria. Urine culture is pending. Renal ultrasound done on 11/17 shows a urinary bladder with no abnormalities. Indwelling suprapubic catheter, bladder volume is 49.5 mL, renal cortical echogenicity normal bilaterally. Contours of the kidneys is normal with no hydronephrosis. Vascular ultrasound: Bilateral lower extremities was negative for deep venous thrombosis (DVT). PHYSICAL EXAMINATION: GENERAL: Pleasant gentleman in no acute distress. VITAL SIGNS: Temperature is 97.1, 68, respirations 18, blood pressure 102/55, O2 sat 97% on room air. HEART: Normal S1-S2. No murmurs, rubs or gallops. LUNGS: Clear. No wheezes or rhonchi. Abdomen: Soft, slightly obese, soft, nontender. No visceromegaly. Colostomy in left lower quadrant. NECK: Neck is supple with tracheostomy scar. EXTREMITIES: No clubbing, cyanosis or edema. I was not able to see his left ischial flap. Suprapubic catheter in place. Urine is clear, has little mucus debris. There is no surrounding purulent discharge at the suprapubic site. NEUROLOGIC EXAM: Quadriplegia with muscle may wasting. IMPRESSION: This of 39-year-old gentleman with quadriplegic with a history of recurrent urinary tract infection; currently the patient is doing fine. He feels he is at baseline. He had some increased bladder spasm over the weekend that currently has resolved. He has no fever, no chills, no white count and at this point the patient has asymptomatic bacteruria. No matter what his urine culture showed I do not recommend treating it. He has a history of methicillin resistant Staphylococcus aureus (MRSA) in the past. He is at very high risk of developing multidrug resistant organisms including extended spectrum beta-lactamases (ESBL) and carbapenems resistant Enterobacteriaceae if he is treated for every positive urine culture. PLAN: I agree with Dr. Saskia Flores not to treat this asymptomatic bacteruria, at this point he is back to his baseline. We will obtain the results of his previous urine culture from [facility] to review previous pathogens and resistance. The patient is in agreement that currently he is at baseline and does not think he needs antibiotics. ANTONIO
[2019-11-21] MEDS: oxyCODONE 5MG TAB PO PRN ×3 (07:28→20:53)
[2019-11-21] MEDS: hydrOXYzine 50 MG TAB PO PRN ×3 (07:28→20:52)
[2019-11-21] MEDS: SUCRALFATE 1 GM TAB PO SCH ×2 (07:28→17:02)
[2019-11-21] MEDS: BISACODYL 5 MG TAB PO SCH (09:00)
[2019-11-21] MEDS: DANTROLENE 25 MG CAP PO SCH ×2 (09:39→20:52)
[2019-11-21] MEDS: TOLTERODINE TARTRATE 2 MG LA CAP (DETROL LA) PO SCH (09:39)
[2019-11-21] MEDS: BACLOFEN 10 MG TAB PO SCH ×3 (09:41→20:52)
[2019-11-21] MEDS: buPROPion **SR TABLET** (ZYBAN) 150MG PO SCH ×2 (09:41→20:53)
[2019-11-21] MEDS: FLUTICASONE PROP 0.05% NASAL SPRAY 16 GM (FLONASE) NARES SCH ×2 (09:41→20:53)
[2019-11-21] MEDS: ACETAMINOPHEN 500 MG TAB PO SCH ×4 (09:41→20:52)
[2019-11-21] MEDS: ASCORBIC ACID 500 MG TAB PO SCH (09:41)
[2019-11-21] MEDS: SODIUM CHLORIDE NASAL 0.65% SPRAY BTL (OCEAN) SCH ×3 (09:42→20:53)
[2019-11-21] MEDS: LACTOBACILLUS ACIDOPHILUS CAP (BACID) PO SCH (09:42)
[2019-11-21 14:55] VITALS: BP 104/55
[2019-11-21 20:43] VITALS: BP 104/63
[2019-11-21 20:53] VITALS: BP 104/63
[2019-11-21] MEDS: TERAZOSIN 5 MG CAP PO SCH (20:53)
[2019-11-22 06:00] VITALS: BP 112/65
[2019-11-22 06:35] LABS: HEMATOCRIT 37.9 % (42.0-52.0); HEMOGLOBIN 12.8 g/dl (13.5-17.5); MEAN CORPUSCULAR HEMOGLOBIN 31.8 pg (27.0-33.0); MEAN CORPUSCULAR HGB CONC 33.8 g/dl (32.0-36.5); PLATELET COUNT, AUTOMATED 231 10^3/uL (150-450); RED BLOOD COUNT 4.03 10^6/uL (4.30-6.10); WHITE BLOOD COUNT 5.9 10^3/uL (4.0-10.0)
[2019-11-22] MEDS: LACTOBACILLUS ACIDOPHILUS CAP (BACID) PO SCH (09:23)
[2019-11-22] MEDS: ASCORBIC ACID 500 MG TAB PO SCH (09:23)
[2019-11-22] MEDS: DANTROLENE 25 MG CAP PO SCH (09:23)
[2019-11-22] MEDS: SUCRALFATE 1 GM TAB PO SCH (09:23)
[2019-11-22] MEDS: buPROPion **SR TABLET** (ZYBAN) 150MG PO SCH (09:24)
[2019-11-22] MEDS: BACLOFEN 10 MG TAB PO SCH (09:24)
[2019-11-22] MEDS: ACETAMINOPHEN 500 MG TAB PO SCH (09:24)
[2019-11-22] MEDS: TOLTERODINE TARTRATE 2 MG LA CAP (DETROL LA) PO SCH (09:24)
[2019-11-22] MEDS: BISACODYL 5 MG TAB PO SCH (09:24)
[2019-11-22] MEDS: FLUTICASONE PROP 0.05% NASAL SPRAY 16 GM (FLONASE) NARES SCH (09:25)
[2019-11-22] MEDS: SODIUM CHLORIDE NASAL 0.65% SPRAY BTL (OCEAN) SCH (09:25)
[2019-11-22] MEDS: hydrOXYzine 50 MG TAB PO PRN (09:28)
[2019-11-22] MEDS: oxyCODONE 5MG TAB PO PRN ×2 (09:29→12:25)
[2019-11-22] MEDS ORDERED: BISAC5TA PO (10:53)
[2019-11-22] MEDS ORDERED: MULTCAP PO (10:53)
[2019-11-22] MEDS ORDERED: ASCO50TA PO (10:53)
[2019-11-22] MEDS ORDERED: BACL1TAB9 PO (10:53)
[2019-11-22] MEDS ORDERED: SENN18TA PO (10:53)
[2019-11-22] MEDS ORDERED: TOLT4CAP3 PO (10:53)
[2019-11-22] MEDS ORDERED: PROB1CAP10 PO (10:53)
[2019-11-22] MEDS ORDERED: DANT25CA PO (10:53)
[2019-11-22] MEDS ORDERED: SUCR1TA PO (10:53)
[2019-11-22] MEDS ORDERED: HYDR1TAB33 PO (10:53)
[2019-11-22] MEDS ORDERED: BUPR1TAB53 PO (10:53)
[2019-11-22] MEDS ORDERED: TERA5CAP3 PO (10:53)
[2019-11-22] MEDS ORDERED: OXYC-517 PO (11:00)
--- NOTE | 2019-11-22 13:25 | IPNPDOC ---
Text Note Date of Service The patient was seen on 11/22/19. NOTE HISTORY OF PRESENT ILLNESS: Pt is seen sitting up in bed today. He denied any new or worsening symptoms. Pt is to be d/c home today and he is relieved and ready to go home. REVIEW OF SYSTEMS: Constitutional: Denies: Chills, Fever, Night Sweats Eyes: Denies: Pain ENT: Denies: Head Aches Skin: Denies: Rash Pulmonary: Denies: Dyspnea, Cough Cardiovascular: Denies: Chest Pain, Palpitations, Orthopnea, Paroxysmal Noc. Dyspnea, Lt Headedness Gastrointestinal: Denies: Nausea, Vomiting, Abdominal Pain, Diarrhea Genitourinary: Denies: Dysuria Musculoskeletal: Reports: mild lower back/sacral pain Denies: Neck Pain, Joint Pain, Muscle Pain, Spasms Neurological: Denies: Weakness, Numbness Psych: Reports: Mood Normal; PHYSICAL EXAMINATION: VITAL SIGNS: Please see below. General Exam: Positive: Alert, Cooperative, No Acute Distress Eye Exam: Positive: PERRLA, Conjunctiva & lids normal, EOMI; Negative: Sclera icteric ENT Exam: Positive: Atraumatic, Mucous membr. moist/pink, Pharynx Normal Neck Exam: Positive: Supple; Negative: thyromegaly Chest Exam: Positive: Clear to auscultation, Normal air movement Heart Exam: Positive: Rate Normal, Regular Rhythm, Normal S1, Normal S2; Negative: Murmurs, Rubs Telemetry: Positive: No significant arrhythmia Abdomen Exam: Positive: Normal bowel sounds, Soft, Other (colostomy present and suprapubic cath present); Negative: Tenderness Extremity Exam: Negative: Clubbing, Cyanosis, Edema Skin Exam: Positive: Nl turgor and temperature; Negative: Breakdown, Lesion Neuro Exam: Positive: Other (quadriplegic) Psych Exam: Positive: Mood NL, Oriented x 3 LABORATORY DATA: Please see below. ASSESSMENT/PLAN: Mr. Arias is a 39-year-old male who has been transferred to acute rehabilitation from the [facility]. The patient was admitted by plastic surgery for I & D and flap repair of a stage IV sacral decubital ulcer with ischial osteomyelitis. Procedure was completed by Dr. Khan on 10/22. Wound cultures taken at the time of the procedure were positive for Escherichia coli, Strep. G and P. Melaninogenica. Patient was treated to completion with Rocephin and and Flagyl. Patient was placed on strict 3 week bed rest by his surgeon in order to preserve the flap. During that time, he received bed PT only , which has resulted in physical deconditioning. Patient was assessed and deemed suitable for transfer to the acute rehabilitation unit on 11/12. Traumatic quadriplegia with physical deconditioning. Continued rehabilitation per physiatry Chronic urinary retention. Continue Detrol La and Terazosin Suprapubic catheter in place - UA completed on 11/18/[address] Flores +ve nitrites, with culture + E. coli and P. aeruginosa. Pt is asymptomatic, no treatment per Dr. Tinajero. Stage IV left ischial pressure wound. -S/P flap closure per Dr. Khan Has completed 3 weeks of strict bedrest, ceftriaxone and Flagyl therapy directed by positive wound cultures. Cleared by plastic surgery to start physical therapy/acute rehabilitation; now cleared for d/c Mood disorder and anxiety. Continue Wellbutrin and Vistaril GERD. Continue sucralfate, PPI Muscle spasms. Due to history of a C5 injury. Continue baclofen and dantrolene DVT prophylaxis: Lovenox VS,Fishbone, I+O VS, Fishbone, I+O Laboratory Tests 11/22/19 06:20 Vital Signs Date Time Temp Pulse Resp B/P (MAP) Pulse Ox O2 Delivery O2 Flow Rate FiO2 11/22/19 12:25 18 11/22/19 06:00 97.7 65 112/65 (81) 99 Room Air I&O- Last 24 Hours up to 6 AM 11/22/19 06:00 Intake Total 1960 ml Output Total 1400 ml Balance 560 ml RADHA YO PA-C Nov 22, 2019 13:25
--- NOTE | 2019-11-22 18:05 | IPN ---
DATE: 11/22/2019 Hari was not seen by me today, but I did a telephone call, as he had been discharged before I arrived to the floor. I did review with him the results of urine culture. He had an Escherichia (E) coli extended-spectrum beta-lactamases (ESBL), resistant to all cephalosporins, sensitive to carbapenems, resistant to levofloxacin, intermediate to Zosyn, sensitive to tigecycline, but sensitive to Macrobid. Pseudomonas aeruginosa was resistant to ceftazidime, sensitive to gentamicin, meropenem, Zosyn and tobramycin. I also reviewed cultures from February 2019 and July 2019. They were both positive for E-coli ESBL with sensitivity to Macrobid, Bactrim and carbapenems. LABORATORY DATA: Today: White count 5.9, hemoglobin 12.8, hematocrit 37.9, platelets 231. Sodium 141, potassium 3.7, chloride 112, bicarbonate 23, BUN 13, creatinine 0.5. Impression/ Plan The patient has remained afebrile. Asymptomatic bacteria. The patient was discharged from the hospital without treatment of this positive urine culture, as we believed that was asymptomatic bacteria. I had a discussion with the patient that he is always colonized with this E-coli ESBL, that his drug of choice would not be a quinolone but instead a Macrobid or Bactrim for the time being, but he also notes that he had a Pseudomonas aeruginosa that is not sensitive to either and his only choices for that would be an intravenous (IV) antibiotic. I also recommended that he had if he continues having recurrent urinary tract infections, that he follows up with infectious disease at [facility] with Dr. Cristobal Seth, who would be able to help him manage his recurrent urinary tract infection. At this point, the patient did not receive any antibiotics for asymptomatic bacteria. ANTONIO
--- NOTE | 2019-11-25 13:57 | PMRDS ---
DATE OF ADMISSION: 11/13/2019 DATE OF DISCHARGE: 11/22/2019 CHIEF COMPLAINT/DISCHARGE DIAGNOSIS: Status post flap surgery in the setting of chronic tetraplegia. HISTORY OF PRESENT ILLNESS: 39 M pmh traumatic SCI in 2004 with complete C6 tetraplegia s/p C4-C7 fusion with chronic suprapubic catheter since 2007, and diverting colostomy placed in 2018 who was admitted to [facility] on 10-22-19 following a left ischial flap surgery for a stage 4 wound. He was kept on bedrest for 3 weeks, with daily dressing changes and pain management. Due to longstanding immobility patients bed mobility, ADLs, and ability to transfer with a slide board were diminished. He had persistent pain in his left leg, and deemed medically appropriate for discharge to ARU for rehab. PAST MEDICAL HISTORY: As per HPI. HOSPITAL COURSE: The patient was admitted under the comprehensive physical therapy (PT), occupational therapy (OT) program. He received 24-hour nursing supervision and weekly team meetings were held to discuss his progress. The patient was maintained on his baclofen and Dantrium for known history of spasticity. He also received daily dressing changes for his recent flap procedure. The patient worked on slide board transfers in therapy without any disruption in his healed incision. The patient complained of increased bladder spasms for which urinalysis was ordered showing positive leukocyte esterase and nitrites with eventual urine culture growth of extended spectrum beta-lactamase, (ESBL) Escherichia (E) coli and Pseudomonas. The patient's bladder spasms improved with increase hydration. He did not have any leukocytosis, fevers or chills or signs of autonomic dysreflexia , infectious disease was consulted and it was thought to be due to colonization in the setting of chronic quadriplegia with suprapubic catheterization. The patient made progress in physical therapy and occupational therapy with improvement in his transfers and bed mobility and was deemed medically and functionally stable to return home with scripts sent for new equipment. DISCHARGE MEDICATIONS: As per instructions. FUNCTIONAL HISTORY: Upon discharge, the patient was independent from a motorized wheelchair level and min assist for functional transfers with slide board setup. Thank you for this referral.
== END 2019-11-22 13:00 | disposition home health service (06) | DRG 53 ==
LOC: M PM&R 14:27 → EEVIPCON 14:27 → UNDOADMIN 14:50 → M PM&R 14:50
PROVIDERS: ADMIT Physical Medicine & Rehabilitation; ATTEND Physical Medicine & Rehabilitation
DX: G82.53 Quadriplegia, C5-C7 complete (principal); S14.13 Anterior cord syndrome of cervical spinal cord; M79.662 Pain in left lower leg; R33.9 Retention of urine, unspecified; M62.838 Other muscle spasm; N32.89 Other specified disorders of bladder; F41.9 Anxiety disorder, unspecified; F39 Unspecified mood [affective] disorder; K21.9 Gastro-esophageal reflux disease without esophagitis; Z95.828 Presence of other vascular implants and grafts; Z98.1 Arthrodesis status; Z87.891 Personal history of nicotine dependence; Z97.8 Presence of other specified devices; Z93.3 Colostomy status; Z79.899 Other long term (current) drug therapy; Z88.5 Allergy status to narcotic agent; X58.XXXS Exposure to other specified factors, sequela; Y92.9 Unspecified place or not applicable; Z48.01 Encounter for change or removal of surgical wound dressing; Z48.817 Encounter for surgical aftercare following surgery on the skin and subcutaneous tissue

== ENCOUNTER 2024-05-15 11:44 | Day surgery (SDC) | payer MEDICARE, MEDICAID ==
[~2024-05-15] VITALS: Ht 167.6 cm; Wt 65.8 kg
[~2024-05-15 11:44] MED LIST changes: +ALBU2.5V10 INH; -ALBU83IN INH; +LIDOCAINE 2% 100MG/5ML SDV (FOR ANES.) As Ordered ONE; +MIDAZOLAM INJ 2MG/2ML VIAL As Ordered ONE; +ONDANSETRON 4MG 2ML VIAL As Ordered ONE; +OXYC-517 PO; +ROCURONIUM BROMIDE 50MG/5ML VIAL As Ordered ONE; +SENN-111 PO; -SENN18TA PO; +dexmedeTOMIDine (4MCG/ML)200MCG/50ML BTL (PRECEDEX) As Ordered ONE; +fentaNYL 250 MCG/5 ML INJECTION As Ordered ONE; +propofoL 200 MG/20 ML VIAL As Ordered ONE
[2024-05-15] MEDS ORDERED: SEVOFLURANE INHAL SOLN 250 ML BTL As Ordered ONE (13:23)
[2024-05-15] MEDS: ceFAZolin SOD 2 GM in IV 1 EA IV ONE (13:50)
[2024-05-15] MEDS ORDERED: ACETAMINOPHEN 1000MG 100ML IV BAG As Ordered ONE (14:24)
[2024-05-15] MEDS: ISOVUE-300 61% 100ML VIAL As Ordered ONE (14:32)
[2024-05-15] MEDS ORDERED: ePHEDrine SULFATE 25 MG/5 ML(5MG/ML) SYRINGE As Ordered ONE (14:48)
[2024-05-15] MEDS ORDERED: fentaNYL 100 MCG/2 ML INJECTION IV PRN (15:05)
[2024-05-15] MEDS ORDERED: ONDANSETRON 4MG 2ML VIAL IV PRN (15:05)
[2024-05-15] MEDS ORDERED: ACETAMINOPHEN TAB 650MG DOSE (2X325MG) PO PRN (15:45)
[2024-05-15] MEDS: oxyCODONE 5MG TAB PO PRN (15:59)
[2024-05-15 16:40] VITALS: BP 133/77; TEMP 97.9; O2SAT 98
== END 2024-05-15 16:50 | disposition home or self-care (01) ==
LOC: M SDC 11:44
PROVIDERS: ATTEND Urology
DX: N13.2 Hydronephrosis with renal and ureteral calculous obstruction (principal); I10 Essential (primary) hypertension; K22.89 Other specified disease of esophagus; G82.50 Quadriplegia, unspecified; J45.909 Unspecified asthma, uncomplicated; G90.4 Autonomic dysreflexia; E46 Unspecified protein-calorie malnutrition; Z79.899 Other long term (current) drug therapy; Z93.3 Colostomy status; K59.00 Constipation, unspecified; F17.290 Nicotine dependence, other tobacco product, uncomplicated; Z88.5 Allergy status to narcotic agent; Z98.1 Arthrodesis status; Z87.440 Personal history of urinary (tract) infections; Z68.23 Body mass index [BMI] 23.0-23.9, adult; G43.909 Migraine, unspecified, not intractable, without status migrainosus
CPT/HCPCS: 52356; 76000; 82365; 93005; C1769; C2617; J0131; J0690; J1100; J2250; J2405; J3010; Q9967